=== PATIENT | male | born 1950 | race Caucasian/White ===

== ENCOUNTER 2016-12-24 14:37 | Emergency (ER) | payer MEDICAID ==
[~2016-12-24] VITALS: Ht 170.2 cm; Wt 77.1 kg
[2016-12-24 15:11] VITALS: BP 94/51
[2016-12-24] MEDS ORDERED: IV SET PRIMARY PUMP SET 1 EA INFUS.SET MC ONE (15:19)
[2016-12-24] MEDS ORDERED: IV NS 0.9% 500 ML IV ONE (15:19)
[2016-12-24] MEDS ORDERED: IV NS 0.9% 2,000 ML ONE (15:19)
[2016-12-24] MEDS ORDERED: IV NS 0.9% 1,000 ML BAG IV ONE (15:30)
[2016-12-24 15:37] LABS: BASOPHILS # (AUTO) 0.1 /CMM (0.0-0.2); BASOPHILS % (AUTO) 0.7 % (0.0-2.0); DIFF TOTAL % 100 %; EOSINOPHILS # (AUTO) 0.5 /CMM (0.0-0.7); EOSINOPHILS % (AUTO) 4.3 % (0.0-6.0); HEMATOCRIT 34 % (39-51); LYMPHOCYTES # (AUTO) 2.3 /CMM (0.8-4.8); LYMPHOCYTES % (AUTO) 21.5 % (20.0-44.0); MEAN CORPUSCULAR HEMOGLOBIN 30 PG (26.0-33.0); MEAN CORPUSCULAR HGB CONC 33 g/dl (31.0-36.0); MEAN CORPUSCULAR VOLUME 91 fL (80-96); MONOCYTES # (AUTO) 0.8 /CMM (0.1-1.30); MONOCYTES % (AUTO) 7.4 % (2.0-12.0); NEUTROPHILS # (AUTO) 6.8 /CMM (1.8-8.9); NEUTROPHILS % (AUTO) 66.1 % (43.0-81.0); PLATELET COUNT (AUTO) 156 /CMM (150-450); RED BLOOD CELL COUNT(AUTO) 3.69 MIL/uL (4.5-6.0); WHITE BLOOD COUNT (AUTO) 10.5 K/uL (4.3-11.0)
[2016-12-24 15:46] LABS: ADD UA MICROSCOPIC YES; KETONES,URINE Negative (NEGATIVE); LEUKOCYTE ESTERASE ,URINE Moderate (NEGATIVE)
[2016-12-24 15:47] LABS: ADD URINE CULTURE YES
[2016-12-24 15:49] LABS: ANION GAP 8 (5-14); CARBON DIOXIDE 29 mmol/L (21-32); CHLORIDE 106 mmol/L (98-107); GFR 75 mL/min (>60); GLUCOSE 106 mg/dL (74-106); POTASSIUM 3.9 mmol/L (3.5-5.1); SODIUM SERUM 139 mmol/L (136-145); UREA NITROGEN, BLOOD 23 mg/dL (7-18)
[2016-12-24 15:56] LABS: TROPONIN I < 0.017 ng/mL (0.00-0.056)
[2016-12-24 16:00] LABS: ALANINE AMINOTRANSFERASE 18 U/L (12-78); ALBUMIN 3.1 g/dL (3.4-5.0); ASPARTATE AMINOTRANSFERASE 20 U/L (15-37); BILIRUBIN,DIRECT 0.1 mg/dL (0.0-0.2); BILIRUBIN,TOTAL 0.6 mg/dL (0.2-1.0); INDIRECT BILIRUBIN 0.5 mg/dL (0.0-1.1); TOTAL PROTEIN, SERUM 7.8 g/dL (6.4-8.2)
[2016-12-24 16:05] LABS: ABG BASE EXCESS -3.6 mmol/L; ABG HCO3 20.7 mmol/L; ABG PCO2 34.5 mmHg (35.0-45.0); ABG PH 7.396 (7.350-7.450); ABG PO2 111.9 mmHg (75.0-100.0); ABG TOTAL HEMOGLOBIN 10.3 G/dL (13.5-18.0); ALLEN TEST Pass; AaDO2 61.5 mmHg; O2Hb 96.3 % (94.0-97.0)
[2016-12-24 16:12] LABS: LACTIC ACID 0.9 mmol/L (0.4-2.0)
[2016-12-24 16:21] LABS: INR 1.13 (0.87-1.13); PROTHROMBIN TIME 11.9 SECS (9.5-12.7)
[2016-12-24] MEDS ORDERED: IV SET PRIMARY 1 EA INFUS.SET MC ONE (16:27)
[2016-12-24] MEDS ORDERED: CEFTRIAXONE 1GM BAG (ER ONLY) 50 ML IV ONE (16:27)
[2016-12-24] MEDS ORDERED: CEFTRIAXONE 1GM BAG (ER ONLY) 1 GM/50 ML PIGGYBACK IV ONE (16:30)
[2016-12-24] MEDS ORDERED: ACID1TAB12 GT (16:40)
[2016-12-24] MEDS ORDERED: METO5SOL2 GT (16:40)
[2016-12-24] MEDS ORDERED: TRAM50TA92 GT (16:40)
[2016-12-24] MEDS ORDERED: BACL20TA GT (16:40)
[2016-12-24] MEDS ORDERED: INSU100V7 SQ (16:40)
[2016-12-24] MEDS ORDERED: ASCO500S2 GT (16:40)
[2016-12-24] MEDS ORDERED: CLON0.1T GT (16:40)
[2016-12-24] MEDS ORDERED: BLOO-668 IN (16:40)
[2016-12-24] MEDS ORDERED: MIDO5TAB GT (16:40)
[2016-12-24] MEDS ORDERED: CLON0.5T GT (16:40)
[2016-12-24] MEDS ORDERED: LORA1TAB GT (16:40)
[2016-12-24] MEDS ORDERED: HEPA10009 SQ (16:40)
[2016-12-24] MEDS ORDERED: DOCU50LI GT (16:40)
[2016-12-24] MEDS ORDERED: POTA20LI4 GT (16:40)
[2016-12-24] MEDS ORDERED: ZINC220C8 GT (16:40)
[2016-12-24] MEDS ORDERED: NUT.237L30 GT (16:40)
[2016-12-24] MEDS ORDERED: ACET160S3 GT (16:40)
[2016-12-24] MEDS ORDERED: INSU100V11 SQ (16:40)
[2016-12-24] MEDS ORDERED: MULT-24 GT (16:40)
[2016-12-24] MEDS ORDERED: OMEP40CA37 GT (16:40)
[2016-12-24 17:14] VITALS: BP 99/54
[2016-12-24 20:00] VITALS: BP 94/54
[2016-12-24 21:52] VITALS: BP 131/68
== END 2016-12-24 22:53 | disposition home or self-care (01) ==
LOC: ER 14:42
DX: D72.829 Elevated white blood cell count, unspecified (principal); N39.0 Urinary tract infection, site not specified; I10 Essential (primary) hypertension; E11.9 Type 2 diabetes mellitus without complications
CPT/HCPCS: 36415; 36600; 71010-TC; 80048-TC; 80076-TC; 81000-TC; 83605-TC; 83880; 84484-TC; 85025-TC; 85730-TC; 87040-TC; 87070-TC; 87086-TC; 87186-TC; 87400; A4606; J0696; J7030; J7040; Z7610

== ENCOUNTER 2019-05-03 23:52 | Inpatient (IN) | payer MEDICAID ==
[~2019-05-03] VITALS: Ht 167.6 cm; Wt 71.7 kg
[~2019-05-03 23:52] MED LIST: ACET650S26 GT; ACID1TAB12 GT; ASCO500S2 GT; BACL20TA GT; BLOO-668 IN; CLON0.1T GT; CLON0.5T GT; DOCU50LI GT; HEPA10009 SQ; INSU100V11 SQ; INSU100V7 SQ; LORA1TAB GT; METO5SOL2 GT; MIDO5TAB GT; MULT-24 GT; NUT.237L30 GT; OMEP40CA37 GT; POTA20LI5 GT; TRAM50TA GT; ZINC220C8 GT
--- NOTE | 2019-05-04 00:05 | NUR ---
KODI PLATT FROM [facility]. ALERT AND AWAKE. VENT DEPENDENT W/O NOTED ANY DISTRESS. BROUGHT IN FOR GT SITE BLEEDING X 2 DAYS. NOTED DARK RED BLOOD ON GT DRESSING, NO ACTIVE BLEEDING AT THIS TIME. ICE PACK ON GT SITE UPON ARRIVAL. TO ER BED 8. AWAITING MD FOR EVAL.
--- NOTE | 2019-05-04 00:20 | NUR ---
GT DRESSING CHANGED MIN BLOOD NOTED ON DRESSING NO NOTE ACTIVE BLEEDING. NOTED LEONELA STOMA MASERATED SKIN 2ND TO MOISTURE ASSOCIATED SKIN BREAKDOWN. AWARE.
[2019-05-04] MEDS ORDERED: PANTOPRAZOLE 80 MG in IV NS 0.9% 100 ML IV ONE (00:30)
[2019-05-04] MEDS ORDERED: PANTOPRAZOLE 80 MG in IV NS 0.9% 500 ML IV ONE (00:30)
[2019-05-04 00:47] LABS: BASOPHILS % (AUTO) 0.4 % (0.0-2.0); HEMATOCRIT 37 % (39-51); HEMOGLOBIN 12.2 g/dL (13.5-17.5); LYMPHOCYTES % (AUTO) 33.2 % (20.0-44.0); MEAN CORPUSCULAR HGB CONC 33 g/dl (31.0-36.0); MEAN CORPUSCULAR VOLUME 93 fL (80-96); MONOCYTES # (AUTO) 0.7 /CMM (0.1-1.30); MONOCYTES % (AUTO) 8.4 % (2.0-12.0); NEUTROPHILS # (AUTO) 4.8 /CMM (1.8-8.9); PLATELET COUNT (AUTO) 271 /CMM (150-450); RED BLOOD CELL COUNT(AUTO) 4.01 MIL/uL (4.5-6.0); WHITE BLOOD COUNT (AUTO) 8.9 K/uL (4.3-11.0)
[2019-05-04] MEDS ORDERED: PANTOPRAZOLE 40 MG VIAL ONE (00:49)
[2019-05-04 00:59] LABS: CALCIUM, SERUM 8.9 mg/dL (8.5-10.1); CREATININE 0.8 mg/dL (0.6-1.3); POTASSIUM 3.2 mmol/L (3.5-5.1)
[2019-05-04 01:05] LABS: ALBUMIN 3.1 g/dL (3.4-5.0); BILIRUBIN,DIRECT 0.2 mg/dL (0.0-0.2); BILIRUBIN,TOTAL 0.7 mg/dL (0.2-1.0); TOTAL PROTEIN, SERUM 8.1 g/dL (6.4-8.2)
--- NOTE | 2019-05-04 02:32 | NUR ---
REPORT GIVEN TO FARHANA CUMMINGS FOR KEVIN. PT GOING TO 114-2
[2019-05-04 03:19] VITALS: BP 137/56
--- NOTE | 2019-05-04 03:30 | NUR ---
PAGED AND CLARIFIED JANE COVINGTON NP. ORDER TUBE FEEDING DIET PER JANE Robert PUT PT NPO DIET OF NOW READ BACK AND VERIFIED ORDERS NOTED AND CARRIED OUT
[2019-05-04] MEDS ORDERED: IV D5/0.45 NACL 1,000 ML IV PRN (03:33)
[2019-05-04] MEDS ORDERED: METO25TA6 GT (03:53)
[2019-05-04] MEDS ORDERED: BACL10TA GT (03:53)
[2019-05-04] MEDS ORDERED: HYDR-4384 GT (03:53)
[2019-05-04] MEDS ORDERED: MAGNESIUM HYDROXIDE 30 ML UDC PO PRN (04:00)
[2019-05-04] MEDS ORDERED: PANTOPRAZOLE 80 MG in IV NS 0.9% 500 ML IV PRN (04:00)
[2019-05-04] MEDS ORDERED: MAG HYDROX/AL HYDROX/SIMETH 30 ML UDC PO PRN (04:00)
[2019-05-04] MEDS ORDERED: ACETAMINOPHEN 325 MG TABLET PO PRN (04:00)
[2019-05-04] MEDS ORDERED: ONDANSETRON HCL/PF 4 MG/2 ML VIAL IVP PRN (04:00)
[2019-05-04] MEDS: POTASSIUM CL. PREMIX PERIPHER. 50 ML IV SCH ×7 (04:17→14:26)
[2019-05-04] MEDS ORDERED: HYDROCODONE/APAP 5/325MG 1 EACH TABLET GT PRN (04:30)
[2019-05-04] MEDS ORDERED: DEXTROSE 50%-WATER 50 ML DISP.SYRIN IV PRN ×2 (04:30→17:00)
[2019-05-04] MEDS ORDERED: ACETAMINOPHEN 650 MG/20.3 ML UDC GT PRN (04:30)
[2019-05-04] MEDS ORDERED: LORAZEPAM 1 MG TABLET GT PRN (04:30)
[2019-05-04] MEDS ORDERED: GLUCERNA 1.2 1,000 ML BOTTLE GT SCH (04:30)
[2019-05-04] MEDS ORDERED: CLONIDINE HCL 0.1 MG TABLET GT PRN (04:30)
[2019-05-04] MEDS: BACLOFEN (10 MG) 10 MG TABLET GT SCH ×3 (04:58→20:54)
[2019-05-04] MEDS: MIDODRINE HCL (5MG) 5 MG TABLET GT SCH ×3 (04:58→20:54)
[2019-05-04] MEDS: clonazePAM 0.5 MG TABLET GT SCH ×3 (04:58→20:53)
--- NOTE | 2019-05-04 05:14 | NUR ---
Admitted pt from E.R services 0305 via gurney. pt in no apparent distress, admit to tele unit with SR 74 hr in the tele monitor. Atraumatic, respirations even and unlabored. Vent dependent tolerating settings as ordered. Shiley 6 XLT. G-tube site appears mildly excoriated. No active bleeding. head to toe assessment is done. kept clean and dry and comfortable. safety measures at all times. will cont to [facility].
[2019-05-04] MEDS: METOCLOPRAMIDE HCL 10 MG/10 ML UDC GT SCH ×3 (05:27→17:28)
[2019-05-04] MEDS: BLOOD SUGAR DIAGNOSTIC 1 EACH STRIP IN SCH ×4 (05:48→17:31)
[2019-05-04] MEDS: INSULIN REGULAR, HUMAN 100 UNIT/ML 3 ML VIAL SQ PRN ×2 (05:49→12:47)
--- NOTE | 2019-05-04 06:08 | NUR ---
ASSEMBLER DRY CELL AND BATTERY OPENS EYES TO NAME RESPONSIVE TO TACTILE STIMULI, TOLERATING VENTILATOR SETTINGS ORDERED. SP02 100% ON CARDIAC MONITORING SR 78 HR IN THE TELE MONITOR. APPEARS NOT IN DISTRESS, RESPIRATION EVEN AND UNLABORED. KEPT CLEAN AND DRY AND COMFORTABLE. NEEDS ATTENDED AND ANTICIPATED, NURSING CARE RENDERED, OFFLOAD HEELS AND ELBOWS. REPOSITIONED EVERY 2 HOURS. SAFETY MEASURES AT ALL TIMES. ENDORSE TO THE NEXT SHIFT.
--- NOTE | 2019-05-04 06:53 | NUR ---
UNABLE TO GET URINE. STRAIGHT CATH WAS DONE PER ORDER VIA STERILE TECHNIQUE NO OUTPUT PT ALREADY VOIDED IN HIS DIAPER ENDORSE NEXT SHFT TO OBTAIN URINE.
--- NOTE | 2019-05-04 07:30 | NUR ---
RN OPENING NOTES PATIENT IN BED RESTING COMFORTABLY. ABLE TO RESPOND TO TACTILE STIMULI. NO ACUTE DISTRESS AT THIS TIME OR FACIAL GRIMICING. RESPIRATION EVEN AND UNLABORED. PATIENT ABLE TO TOLERATE CURRENT VENT SETTINGS WELL. SKIN IS DRY WARM TO TOUCH. HOB ELEVATED AT ALL TIMES. IV ACCESS ON RIGHT FOOT INTACT AND PATENT. FLUSHING WELL. GT SITE NOTED WITH LEAKAGE. BED LOCKED AND IN LOWEST POSITION. SAFETY MAINTAINED. WILL CONTINUE TO MONITOR.
[2019-05-04 08:00] VITALS: BP 134/61
[2019-05-04] MEDS: ACIDOPHILUS/BULGARICUS 1 EACH TAB.CHEW GT SCH ×3 (09:00→16:55)
[2019-05-04] MEDS: ASCORBIC ACID 500 MG TABLET GT SCH ×2 (09:00→16:55)
[2019-05-04] MEDS ORDERED: POTASSIUM CHLORIDE 20 MEQ POWDER PACKET GT SCH (09:00)
[2019-05-04] MEDS: ZINC SULFATE 220 MG CAPSULE GT SCH (09:00)
[2019-05-04] MEDS: METOPROLOL TARTRATE 25 MG TABLET GT SCH ×2 (09:00→16:55)
[2019-05-04] MEDS: TRAMADOL HCL 50 MG TABLET GT SCH (09:00)
[2019-05-04] MEDS ORDERED: PANTOPRAZOLE 40 MG/PACK PACK GT SCH (09:00)
[2019-05-04] MEDS ORDERED: DOCUSATE SODIUM 100 MG CAPSULE PO SCH (09:00)
[2019-05-04] MEDS: MULTIVITAMINS,THERAGRAN 1 UDTAB TABLET GT SCH (09:00)
[2019-05-04] MEDS: DOCUSATE SODIUM LIQ 100 MG/10 ML UDC GT SCH (09:00)
[2019-05-04 10:00] VITALS: BP 114/38
[2019-05-04] MEDS: HEPARIN SODIUM, PORCINE 5000 UNITS/1 ML VIAL SQ SCH ×2 (10:22→22:50)
--- NOTE | 2019-05-04 11:46 | NUR ---
WOUND CARE CONSULT: PT PRESENTS WITH CONTRACTURES, SACRAL SCARRING, RASH TO GROIN FOLDS AND PERINEAL AREAS AND G TUBE SITE REDNESS WITH DRAINAGE, PRESENT ON ADMISSION. G TUBE IS CLAMPED AT THIS TIME. DEFER TO MD FOR G TUBE ISSUE. SKIN TO BE KEPT CLEAN AND DRY. RECOMMENDATIONS MADE FOR SKIN PROTECTION. DISCUSSED WITH NURSING STAFF. WILL SEE PRN. PT ON SELVIN ISOFLEX LOW AIRLOSS BED. MD IN AGREEMENT WITH PLAN OF CARE. CURRENT EMERITA SCORE IS 9. Addendum: 05/04/19 at 1148 by HERNANDEZ BASILIO WNDNU Amended: Links added.
[2019-05-04 12:00] VITALS: BP 114/38
--- NOTE | 2019-05-04 12:30 | NUR ---
RN NOTES MEDICATION INSULIN WAS NOT GIVEN DUE TO BLOOD SUGAR OR 111. REMAINS IN STABLE CONDITION. WILL CONTINUE TO MONITOR.
[2019-05-04] MEDS: CEFTRIAXONE 1 G in IV D5W 50 ML IV SCH (12:36)
[2019-05-04] MEDS: AZITHROMYCIN 500 MG in IV D5W 250 ML IV SCH (13:15)
[2019-05-04 14:42] LABS: FERRITIN 436 ng/mL (8-388)
[2019-05-04 15:08] LABS: IRON, SERUM 62 ug/dl (50-175); TOTAL IRON BINDING CAPACITY 183 ug/dl (250-450)
[2019-05-04 16:00] VITALS: BP 135/71
[2019-05-04] MEDS: SUCRALFATE 1 G/10 ML UDC GT SCH ×2 (16:56→22:00)
[2019-05-04] MEDS ORDERED: TPN/PPN PER PHARMACY XX PRN (17:00)
[2019-05-04] MEDS ORDERED: Sodium Chloride 154 MEQ in IV 10% DEXTROSE 1,000 ML IV PRN (17:00)
[2019-05-04] MEDS ORDERED: IV 10% DEXTROSE 1,000 ML IV PRN (17:00)
[2019-05-04] MEDS: CLOTRIMAZOLE 1% 15 GM TUBE TP SCH (17:31)
--- NOTE | 2019-05-04 19:00 | NUR ---
RN CLOSING NOTES PATIENT IN BED RESTING COMFORTABLY. ABLE TO RESPOND TO TACTILE STIMULI. NO PAIN OR ACUTE DISTRESS AT THIS TIME. RESPIRATION EVEN AND UNLABORED. TRACH INTACT. PATIENT ABLE TO TOLERATE VENT SETTINGS WELL. HOB ELEVATED AT ALL TIMES. SKIN IS DRY WARM TO TOUCH. IV ACCESS ON THE RIGHT FOOT AND LEFT HAND. INTACT AND PATENT. FLUSHING WELL. GT IN PLACE. HELD ALL MEDICATIONS VIA GT PER GAY. PATIENT WAS ALSO SEEN BY CHENG RODARTE WITH ORDERS TO PUT NG TUBE FOR INTERMITTENT LOW SUCTION AND TO DO WOUND CULTURE. WOUND CULTURE IS READY FOR SIGNAL PROCESSING ENGINEER IN THE SPECIMEN FRIDGE. ALL NEEDS ANTICIPATED. KEPT CLEAN AND DRY. CALL LIGHT WITHIN REACHED. SAFETY MEASURES MAINTAINED. WILL CONTINUE TO MONITOR. ENDORSED TO PM NURSE FOR KEVIN.
--- NOTE | 2019-05-04 19:30 | NUR ---
RN OPENING NOTES PATIENT IN BED RESTING COMFORTABLY. ABLE TO RESPOND TO TACTILE STIMULI. NO ACUTE DISTRESS AT THIS TIME OR FACIAL GRIMICING. RESPIRATION EVEN AND UNLABORED. PATIENT ABLE TO TOLERATE CURRENT VENT SETTINGS WELL. SKIN IS DRY WARM TO TOUCH. HOB ELEVATED AT ALL TIMES. IV ACCESS ON RIGHT FOOT INTACT AND PATENT. FLUSHING WELL. NO G TUBE PRESENT. PT NPO CURRENTLY. BED LOCKED AND IN LOWEST POSITION. SAFETY MAINTAINED. WILL CONTINUE TO MONITOR.
[2019-05-04 20:00] VITALS: BP 119/56
[2019-05-04] MEDS: INSULIN GLARGINE, 100 UNIT/ML CARTRIDGE SQ SCH (22:00)
[2019-05-04] MEDS: NEXIUM 40 MG VIAL IV SCH (22:49)
--- NOTE | 2019-05-04 22:56 | NUR ---
insulin lantus 5 units not given due to pt npo. blood sugar was 110
[2019-05-05] VITALS: BP 119/56
[2019-05-05] MEDS: BACLOFEN (10 MG) 10 MG TABLET GT SCH ×3 (00:41→21:00)
[2019-05-05] MEDS: MIDODRINE HCL (5MG) 5 MG TABLET GT SCH ×3 (00:42→21:00)
[2019-05-05] MEDS: BLOOD SUGAR DIAGNOSTIC 1 EACH STRIP IN SCH ×6 (00:42→18:01)
[2019-05-05 04:00] VITALS: BP 119/56
[2019-05-05] MEDS: METOCLOPRAMIDE HCL 10 MG/10 ML UDC GT SCH ×4 (06:00→18:00)
[2019-05-05 06:34] LABS: APPEARANCE,URINE TURBID (CLEAR); BILIRUBIN,URINE NEGATIVE (NEGATIVE); BLOOD, URINE 2+ Ery/uL (NEGATIVE); COLOR,URINE YELLOW (YELLOW); KETONES,URINE NEGATIVE (NEGATIVE); LEUKOCYTE ESTERASE ,URINE 3+ (NEGATIVE); NITRITE, URINE NEGATIVE (NEGATIVE); PROTEIN,URINE NEGATIVE (NEGATIVE); UGLUCOSE NEGATIVE (NEGATIVE); UROBILINOGEN,URINE 0.2 EU/dL (0.2)
[2019-05-05 06:50] LABS: BACTERIA,URINE Few /HPF (None Seen); WBC,URINE TOO NUMEROUS TO COUN /HPF (0-3); YEAST,URINE Moderate /HPF (None Seen)
--- NOTE | 2019-05-05 07:06 | NUR ---
RN CLOSING NOTES: WOUND CARE CONSULT: G TUBE SITE SLIGHTLY BLEEDING. CONSET NOT SIGNED FOR EGD. WILL ENDORSE TO AM NURSE.. ORDERED PRN BREATHING TREATMENTS FROM DOCTOR Q4. NEEDS FREQUENT SUCTIONING FROM MOUTH. NO ACUTE DISTRESS NOTED. PT PRESENTS WITH CONTRACTURES, SACRAL SCARRING, RASH TO GROIN FOLDS AND PERINEAL AREAS AND G TUBE SITE REDNESS WITH DRAINAGE, PRESENT ON ADMISSION. G TUBE SITE KEPT CLEAN AND DRY AND MONITERED FOR HEAVY BLEEDING. WILL ENDORSE TO AM SHIFT. Addendum: 05/04/19 at 1148 by HERNANDEZ BASILIO WNDNU
[2019-05-05] MEDS: SUCRALFATE 1 G/10 ML UDC GT SCH ×4 (07:30→21:51)
--- NOTE | 2019-05-05 07:30 | NUR ---
DRIVER/GUIDE OPENING NOTES RECEIVED PT ON VENT TO TRACH MD ORDERED. PT O2 SAT WNL. LABORED BREATHING NOTED. CALLED RT FOR PRN BREATHING TX. TRACH SUCTIONED/ LARGE AMOUNT OF SECRETION ORAL NOTED. NGT TO LOW INTERMITTENT SUCTION. IV FLUIDS D10 RUNNING VIA RIGHT FOOT. BED IN LOCKED/LOWEST POSITION CALL LIGHT IN REACH.
[2019-05-05 07:39] LABS: ALBUMIN 3.2 g/dL (3.4-5.0); BILIRUBIN,TOTAL 0.5 mg/dL (0.2-1.0); CREATININE 0.8 mg/dL (0.6-1.3); MAGNESIUM 1.8 mg/dL (1.8-2.4); PHOSPHORUS 2.3 mg/dL (2.5-4.9); POTASSIUM 3.4 mmol/L (3.5-5.1); TOTAL PROTEIN, SERUM 8.1 g/dL (6.4-8.2)
[2019-05-05 07:40] LABS: BASOPHILS # (AUTO) 0.1 /CMM (0.0-0.2); BASOPHILS % (AUTO) 1.4 % (0.0-2.0); EOSINOPHILS % (AUTO) 2.7 % (0.0-6.0); HEMATOCRIT 36 % (39-51); HEMOGLOBIN 11.8 g/dL (13.5-17.5); LYMPHOCYTES # (AUTO) 2.7 /CMM (0.8-4.8); LYMPHOCYTES % (AUTO) 27.1 % (20.0-44.0); MEAN CORPUSCULAR HGB CONC 33 g/dl (31.0-36.0); MEAN CORPUSCULAR VOLUME 91 fL (80-96); MONOCYTES # (AUTO) 0.6 /CMM (0.1-1.30); MONOCYTES % (AUTO) 6.2 % (2.0-12.0); NEUTROPHILS # (AUTO) 6.2 /CMM (1.8-8.9); NEUTROPHILS % (AUTO) 62.6 % (43.0-81.0); PLATELET COUNT (AUTO) 277 /CMM (150-450); RED BLOOD CELL COUNT(AUTO) 3.88 MIL/uL (4.5-6.0); WHITE BLOOD COUNT (AUTO) 9.9 K/uL (4.3-11.0)
[2019-05-05] MEDS: ALBUTEROL FS 2.5 MG/0.5 ML VIAL.NEB NEB SCH ×5 (07:49→23:43)
[2019-05-05 07:59] LABS: THYROID STIMULATING HORMONE 4.608 uIU/mL (0.358-3.74)
[2019-05-05 08:00] VITALS: BP 155/93
[2019-05-05 08:00] LABS: HEMOGLOBIN 13.2 g/dL (13.5-17.5)
[2019-05-05] MEDS: ZINC SULFATE 220 MG CAPSULE GT SCH (09:00)
[2019-05-05] MEDS: DOCUSATE SODIUM LIQ 100 MG/10 ML UDC GT SCH (09:00)
[2019-05-05] MEDS: TRAMADOL HCL 50 MG TABLET GT SCH (09:00)
[2019-05-05] MEDS: ACIDOPHILUS/BULGARICUS 1 EACH TAB.CHEW GT SCH ×3 (09:00→16:19)
[2019-05-05] MEDS: ASCORBIC ACID 500 MG TABLET GT SCH ×2 (09:00→16:19)
[2019-05-05] MEDS: METOPROLOL TARTRATE 25 MG TABLET GT SCH ×2 (09:00→16:19)
[2019-05-05] MEDS: MULTIVITAMINS,THERAGRAN 1 UDTAB TABLET GT SCH (09:00)
[2019-05-05] MEDS: NEXIUM 40 MG VIAL IV SCH ×2 (09:28→21:00)
[2019-05-05] MEDS: HEPARIN SODIUM, PORCINE 5000 UNITS/1 ML VIAL SQ SCH ×2 (09:30→21:00)
[2019-05-05] MEDS: CLOTRIMAZOLE 1% 15 GM TUBE TP SCH ×2 (09:32→18:01)
[2019-05-05] MEDS: CEFTRIAXONE 1 G in IV D5W 50 ML IV SCH (10:06)
[2019-05-05] MEDS: POTASSIUM PHOSPHATE MM 7.5 MMOL in IV D5W 100 ML IV SCH ×2 (11:30→13:45)
[2019-05-05 12:00] VITALS: BP 140/85
[2019-05-05] MEDS: AZITHROMYCIN 500 MG in IV D5W 250 ML IV SCH (12:38)
[2019-05-05] MEDS: clonazePAM 0.5 MG TABLET GT SCH ×3 (13:00→21:00)
[2019-05-05 16:00] VITALS: BP 130/76
[2019-05-05] MEDS ORDERED: TPN/PPN PER PHARMACY XX PRN (16:30)
--- NOTE | 2019-05-05 19:07 | NUR ---
ASSIGNMENT DESK ASSISTANT END OF SHIFT NOTES PT STABLE. BED IN LOCKED/LOWEST POSITION. CALL LIGHT IN REACH. WILL ENDORSE TO PM NURSE FOR KEVIN.
[2019-05-05 20:00] VITALS: BP 166/99
[2019-05-05] MEDS: IV 10% DEXTROSE 1,000 ML IV PRN (21:56)
[2019-05-05] MEDS: INSULIN GLARGINE, 100 UNIT/ML CARTRIDGE SQ SCH (22:00)
[2019-05-06] VITALS (7 sets, daily range): BP systolic 112–154; BP diastolic 60–70
[2019-05-06] MEDS: BLOOD SUGAR DIAGNOSTIC 1 EACH STRIP IN SCH ×5 (00:11→18:21)
[2019-05-06] MEDS: METOCLOPRAMIDE HCL 10 MG/10 ML UDC GT SCH ×3 (00:11→06:00)
[2019-05-06] MEDS: ALBUTEROL FS 2.5 MG/0.5 ML VIAL.NEB NEB SCH ×6 (03:43→23:24)
[2019-05-06] MEDS: BACLOFEN (10 MG) 10 MG TABLET GT SCH ×3 (05:00→21:00)
[2019-05-06] MEDS: clonazePAM 0.5 MG TABLET GT SCH ×3 (05:00→21:00)
[2019-05-06] MEDS: MIDODRINE HCL (5MG) 5 MG TABLET GT SCH ×3 (05:00→21:00)
[2019-05-06 06:48] LABS: BASOPHILS # (AUTO) 0.1 /CMM (0.0-0.2); BASOPHILS % (AUTO) 0.9 % (0.0-2.0); EOSINOPHILS % (AUTO) 0.6 % (0.0-6.0); HEMATOCRIT 37 % (39-51); HEMOGLOBIN 12.1 g/dL (13.5-17.5); LYMPHOCYTES # (AUTO) 2.4 /CMM (0.8-4.8); LYMPHOCYTES % (AUTO) 17.3 % (20.0-44.0); MEAN CORPUSCULAR HGB CONC 33 g/dl (31.0-36.0); MEAN CORPUSCULAR VOLUME 91 fL (80-96); MONOCYTES # (AUTO) 1.1 /CMM (0.1-1.30); MONOCYTES % (AUTO) 7.8 % (2.0-12.0); NEUTROPHILS # (AUTO) 10.3 /CMM (1.8-8.9); NEUTROPHILS % (AUTO) 73.4 % (43.0-81.0); PLATELET COUNT (AUTO) 305 /CMM (150-450); RED BLOOD CELL COUNT(AUTO) 4.04 MIL/uL (4.5-6.0)
[2019-05-06 07:10] LABS: CALCIUM, SERUM 8.7 mg/dL (8.5-10.1); CREATININE 0.8 mg/dL (0.6-1.3); MAGNESIUM 1.7 mg/dL (1.8-2.4); PHOSPHORUS 2.4 mg/dL (2.5-4.9); POTASSIUM 3.4 mmol/L (3.5-5.1)
--- NOTE | 2019-05-06 07:25 | NUR ---
RN NOTE: RECEIVED PATIENT IN BED, AWAKE, NONVERBAL AND VENT-TRACH DEPENDENT SATURATING 100%. RESPIRATION EVEN AND UNLABORED. INSPECTOR DIALS SHOWED SR HR= 93. GT WAS CLAMPED PER MD ORDER. NGT ON THE (R) NARE NOTED ON CONTINUOUS SUCTION AND A REDDISH COFFEE GROUND DRAINAGE WAS NOTED. (R) UA MIDLINE NOTED WITH 2 PORTS INFUSING D10% @ 75ML/HR. HOB ELEVATED. PER PM SHIFT NURSE, ORAL SUCTIONING WAS DONE TO THE PATIENT DUE TO SECRETIONS ON THE MOUTH. BED ALARMED AND LOCKED AT ALL TIMES. CALL LIGHT WITHIN REACH. NEEDS ANTICIPATED.
[2019-05-06] MEDS: SUCRALFATE 1 G/10 ML UDC GT SCH ×4 (07:30→21:38)
[2019-05-06] MEDS: MULTIVITAMINS,THERAGRAN 1 UDTAB TABLET GT SCH (08:03)
[2019-05-06] MEDS: ACIDOPHILUS/BULGARICUS 1 EACH TAB.CHEW GT SCH ×3 (08:03→16:01)
[2019-05-06] MEDS: TRAMADOL HCL 50 MG TABLET GT SCH (08:03)
[2019-05-06] MEDS: ASCORBIC ACID 500 MG TABLET GT SCH ×2 (08:03→16:02)
[2019-05-06] MEDS: DOCUSATE SODIUM LIQ 100 MG/10 ML UDC GT SCH (08:03)
[2019-05-06] MEDS: NEXIUM 40 MG VIAL IV SCH ×2 (08:04→21:43)
[2019-05-06] MEDS: ZINC SULFATE 220 MG CAPSULE GT SCH (08:04)
[2019-05-06] MEDS: METOPROLOL TARTRATE 25 MG TABLET GT SCH ×2 (09:00→16:01)
[2019-05-06] MEDS: HEPARIN SODIUM, PORCINE 5000 UNITS/1 ML VIAL SQ SCH ×2 (09:00→21:00)
[2019-05-06] MEDS: Z GUARD REMEDY 2 OZ OINT TP PRN (09:01)
[2019-05-06] MEDS: CLOTRIMAZOLE 1% 15 GM TUBE TP SCH ×2 (09:01→16:04)
[2019-05-06] MEDS: POTASSIUM CL. PREMIX PERIPHER. 50 ML IV SCH ×2 (10:27→11:31)
[2019-05-06] MEDS: CEFTRIAXONE 1 G in IV D5W 50 ML IV SCH (10:37)
[2019-05-06] MEDS ORDERED: Sodium Phosphate 15 MMOL in IV D5W 250 ML IV ONE (11:30)
[2019-05-06] MEDS: Magnesium 1GM/D5W 100ML PREMIX 100 ML IV SCH ×2 (11:35→12:55)
[2019-05-06] MEDS: INSULIN REGULAR, HUMAN 100 UNIT/ML 3 ML VIAL SQ PRN ×2 (12:27→18:24)
--- NOTE | 2019-05-06 12:29 | NUR ---
RN NOTE: INFORMED DR. RASHID IF IT'S POSSIBLE TO CHANGE THE ORDER FOR THE REGLAN TO IV FORM. AND AGREED WITH ORDER, NOTED AND CARRIED OUT.
[2019-05-06] MEDS: METOCLOPRAMIDE HCL 10 MG/2 ML VIAL IV SCH ×2 (14:30→19:11)
[2019-05-06] MEDS: AZITHROMYCIN 500 MG in IV D5W 250 ML IV SCH (14:30)
[2019-05-06] MEDS: FLUCONAZOLE IN NS,PREMIX 100 MG in PREMIX 1 EA IV SCH ×2 (14:37)
[2019-05-06] MEDS: IV 10% DEXTROSE 1,000 ML IV PRN (15:34)
--- NOTE | 2019-05-06 17:44 | NUR ---
RN NOTE: DURAN RODARTE NP CAME BY AND ORDERED NYSTATIN/TRIAMCINOLONE CREAM TO BE PUT ON THE PATIENT'S GT SITE BID. ORDER, NOTED AND CARRIED OUT.
--- NOTE | 2019-05-06 18:15 | NUR ---
RT END OF THE SHIFT REPORT; PT. 69 Y OLD MALE REC. 0700 AM TRACH'D SHIMERRY XLT # 6 PT. SEMI AWAKE AND ON VENT WITH NOTED SETTINGS, ALARMS ARE SET AND FUNCTIONAL, EQUAL CHEST RISE NOTED, NO DISTRESS, TX'S GIVEN INLINE NO ADVERSE REACTION, B/S BILATERALLY RHONCHI AND SUX'D FOR MOD. AMT OF WHITE SECRETIONS. PT, REMAIN STABLE, NO CHANGES VENT IN RED OUT LET, AMBU BAG AND EXTRA TRACH AT THE BEDSIDE. REPORT WILL BE PASS TO PM SHIFT. Addendum: 05/06/19 at 1819 by LUCIANO WAGNER RT Amended: Links added.
--- NOTE | 2019-05-06 18:37 | NUR ---
RN NOTE: CALLED AND SPOKE WITH YUNIOR NARAYANAN, FATHER AND VERIFIED WITH HIM THAT HE WAS CONSENTING FOR THE EGD PROCEDURE TOMORROW AND POSSIBLE GT PLACEMENT. VERIFIED WITH ANOTEHR NURSE Luis Eduardo PARRA RN FOR THE TELEPHONE CONSENT. PROCEDURE CONSENT WAS SIGNED BY BOTH NURSES AND FILED TO PATIENT'S CHART.
--- NOTE | 2019-05-06 19:04 | NUR ---
ONLINE ACTIVIST OPENING NOTES RECEIVED PATIENT IN BED HEAD OF BED ELEVATED FOR ASPIRATION PRECAUTIONS,AWAKE EYES OPEN NON VERBAL , RESPIRATIONS EVEN AND UNLABORED WITH EQUAL RISE AND FALL OF CHEST, ON MECHANICAL VENT ,PROPERLY WORKING PLUGGED INTO THE EMERGENCY PLUG, AMBU BAG AT BEDSIDE, CONTINUOUS PULSE OX IN PLACE, SP02 100%, PATIENT IS NPO STATUS, NGT TO RIGHT NARE IN PLACE ON CONTINUOUS SUCTION NOTED WITH RED SECRETIONS, SUCTIONED VIA TRACH NOTED THICK BLOOD TINGED SECRETIONS,ON RESEARCH & ANALYTICS MANAGER SR 77, RIGHT UPPER MIDLINE INTACT AND PATENT,IVF RUNNING ORDERED, RIGHT FOOT IV SITE #22 SL. HEELS OFFLOADED, ORIENTED TO STAFF AND CALL LIGHT AND KEPT WITHIN REACH, WILL CONTINUE TO MONITOR AND ADDRESS NEEDS.
--- NOTE | 2019-05-06 19:12 | NUR ---
RN NOTE: BEDSIDE REPORT WAS GIVEN TO PM SHIFT NURSE FOR CONTINUITY OF CARE. ENDORSED TO PM SHIFT NURSE TO COLLECT THE WOUND CULTURE FOR THE PATIENT. PATIENT HAD NO BOWEL MOVEMENT DURING THE DAY. WILL ENDORSE TO PM SHIFT NURSE TO COLLECT IF PATIENT WILL BE HAVING A BOWEL MOVEMENT DURING THE NIGHT.
[2019-05-06] MEDS: INSULIN GLARGINE, 100 UNIT/ML CARTRIDGE SQ SCH (21:39)
[2019-05-07] VITALS (8 sets, daily range): BP systolic 122–156; BP diastolic 58–88
[2019-05-07] MEDS: BLOOD SUGAR DIAGNOSTIC 1 EACH STRIP IN SCH ×4 (00:47→18:03)
[2019-05-07] MEDS: INSULIN REGULAR, HUMAN 100 UNIT/ML 3 ML VIAL SQ PRN ×2 (00:58→05:45)
[2019-05-07] MEDS: METOCLOPRAMIDE HCL 10 MG/2 ML VIAL IV SCH ×4 (02:06→18:10)
[2019-05-07] MEDS: ALBUTEROL FS 2.5 MG/0.5 ML VIAL.NEB NEB SCH ×6 (03:08→23:29)
--- NOTE | 2019-05-07 04:19 | NUR ---
RT NOTE TRACH TUBE IN PLACE, PATENT, AND SECURED. ALARMS ON AND AUDIBLE. VENT PLUGGED IN TO RED OUTLET. AMBU BAG AND BACK UP TRACH BY THE BEDSIDE. IN STABLE CONDITION AT THIS TIME. Addendum: 05/07/19 at 0421 by GWEN HEBERT RT Amended: Links added.
[2019-05-07] MEDS: clonazePAM 0.5 MG TABLET GT SCH ×3 (05:00→21:00)
[2019-05-07] MEDS: BACLOFEN (10 MG) 10 MG TABLET GT SCH ×3 (05:00→21:00)
[2019-05-07] MEDS: MIDODRINE HCL (5MG) 5 MG TABLET GT SCH ×3 (05:00→21:00)
[2019-05-07] MEDS: IV 10% DEXTROSE 1,000 ML IV PRN (06:27)
[2019-05-07 06:47] LABS: CALCIUM, SERUM 8.9 mg/dL (8.5-10.1); CREATININE 0.8 mg/dL (0.6-1.3); MAGNESIUM 2.1 mg/dL (1.8-2.4); PHOSPHORUS 2.8 mg/dL (2.5-4.9)
--- NOTE | 2019-05-07 07:02 | NUR ---
HIGHWAY CONSTRUCTION INSPECTOR CLOSING NOTES PATIENT IN BED HEAD OF BED ELEVATED FOR ASPIRATION PRECAUTIONS,AWAKE EYES OPEN NON VERBAL , RESPIRATIONS EVEN AND UNLABORED WITH EQUAL RISE AND FALL OF CHEST, ON MECHANICAL VENT ,PROPERLY WORKING PLUGGED INTO THE EMERGENCY PLUG, AMBU BAG AT BEDSIDE, CONTINUOUS PULSE OX IN PLACE, SP02 100%, PATIENT IS NPO STATUS, NGT TO RIGHT NARE IN PLACE ON CONTINUOUS SUCTION NOTED WITH MINIMAL PINK TINGED/CLEAR SECRETIONS, SUCTIONED VIA TRACH NOTED THICK BLOOD TINGED SECRETIONS,ON LASER SYSTEMS ENGINEER SR 68, RIGHT UPPER MIDLINE INTACT AND PATENT,IVF RUNNING ORDERED, RIGHT FOOT IV SITE #22 SL. HEELS OFFLOADED, WOUND CARE PROVIDED,CALL LIGHT AND KEPT WITHIN REACH, WILL CONTINUE TO MONITOR AND ADDRESS NEEDS AND ENDORSE TO NEXT SHIFT. UNABLE TO COLLECT STOOL NO BM WILL ENDORSE TO NEXT SHIFT, NO CHANGES THROUGHOUT SHIFT VS WNL, WOUND CARE PROVIDED TO GTUBE SITE. GREEN DRAINAGE NOTED. REPOSITIONED REMAINS COMFORTABLE.
--- NOTE | 2019-05-07 07:15 | NUR ---
HUMANITIES INSTRUCTOR OPENING NOTES RECEIVED REPORT FROM TEAROOM HOST RN. PATIENT IN BED HEAD OF BED ELEVATED FOR ASPIRATION PRECAUTIONS,AWAKE EYES OPEN NON VERBAL , RESPIRATIONS EVEN AND UNLABORED WITH EQUAL RISE AND FALL OF CHEST, ON MECHANICAL VENT ,PROPERLY WORKING PLUGGED INTO THE EMERGENCY PLUG, AMBU BAG AT BEDSIDE, CONTINUOUS PULSE OX IN PLACE, SP02 100%, PATIENT IS NPO STATUS, NGT TO RIGHT NARE IN PLACE ON CONTINUOUS SUCTION NOTED WITH MINIMAL PINK TINGED/CLEAR SECRETIONS, SUCTIONED VIA TRACH NOTED THICK BLOOD TINGED SECRETIONS,ON STATISTICAL CLERK SR 68, RIGHT UPPER MIDLINE INTACT AND PATENT,IVF RUNNING ORDERED, RIGHT FOOT IV SITE #22 SL. HEELS OFFLOADED, CALL LIGHT AND KEPT WITHIN REACH, WILL CONTINUE TO MONITOR.
[2019-05-07] MEDS: SUCRALFATE 1 G/10 ML UDC GT SCH ×4 (07:30→22:00)
[2019-05-07 08:35] LABS: BASOPHILS # (AUTO) 0.1 /CMM (0.0-0.2); BASOPHILS % (AUTO) 1.3 % (0.0-2.0); EOSINOPHILS % (AUTO) 2.9 % (0.0-6.0); HEMATOCRIT 36 % (39-51); HEMOGLOBIN 11.8 g/dL (13.5-17.5); LYMPHOCYTES # (AUTO) 2.4 /CMM (0.8-4.8); LYMPHOCYTES % (AUTO) 23.9 % (20.0-44.0); MEAN CORPUSCULAR HGB CONC 33 g/dl (31.0-36.0); MEAN CORPUSCULAR VOLUME 91 fL (80-96); MONOCYTES # (AUTO) 0.9 /CMM (0.1-1.30); MONOCYTES % (AUTO) 9.2 % (2.0-12.0); NEUTROPHILS # (AUTO) 6.4 /CMM (1.8-8.9); NEUTROPHILS % (AUTO) 62.7 % (43.0-81.0); PLATELET COUNT (AUTO) 251 /CMM (150-450); RED BLOOD CELL COUNT(AUTO) 3.92 MIL/uL (4.5-6.0); WHITE BLOOD COUNT (AUTO) 10.2 K/uL (4.3-11.0)
[2019-05-07] MEDS: MULTIVITAMINS,THERAGRAN 1 UDTAB TABLET GT SCH (09:00)
[2019-05-07] MEDS: HEPARIN SODIUM, PORCINE 5000 UNITS/1 ML VIAL SQ SCH ×2 (09:00→21:00)
[2019-05-07] MEDS: ACIDOPHILUS/BULGARICUS 1 EACH TAB.CHEW GT SCH ×3 (09:00→16:38)
[2019-05-07] MEDS: DOCUSATE SODIUM LIQ 100 MG/10 ML UDC GT SCH (09:00)
[2019-05-07] MEDS: ASCORBIC ACID 500 MG TABLET GT SCH ×2 (09:00→16:39)
[2019-05-07] MEDS: TRAMADOL HCL 50 MG TABLET GT SCH (09:00)
[2019-05-07] MEDS: METOPROLOL TARTRATE 25 MG TABLET GT SCH ×2 (09:00→16:38)
[2019-05-07] MEDS: ZINC SULFATE 220 MG CAPSULE GT SCH (09:00)
[2019-05-07] MEDS: NEXIUM 40 MG VIAL IV SCH (09:23)
[2019-05-07] MEDS: NYSTATIN/TRIAMCIN CREAM 15 GM TUBE TP SCH ×2 (09:23→16:40)
[2019-05-07] MEDS: CLOTRIMAZOLE 1% 15 GM TUBE TP SCH ×2 (09:24→16:40)
[2019-05-07] MEDS: POTASSIUM CL. PREMIX PERIPHER. 50 ML IV SCH ×6 (10:57→18:09)
--- NOTE | 2019-05-07 12:56 | NUR ---
PT NPO NO INSULIN TO BE GIVEN.
[2019-05-07] MEDS: CEFTRIAXONE 1 G in IV D5W 50 ML IV SCH (13:25)
[2019-05-07] MEDS: FLUCONAZOLE IN NS,PREMIX 100 MG in PREMIX 1 EA IV SCH ×2 (14:19)
[2019-05-07] MEDS: AZITHROMYCIN 500 MG in IV D5W 250 ML IV SCH (15:55)
[2019-05-07 18:47] LABS: OCCULT BLOOD STOOL NEGATIVE (NEGATIVE)
--- NOTE | 2019-05-07 19:11 | NUR ---
COLORED LEATHER SETTER CLOSING NOTES GAVE REPORT TO AMMUNITION ASSEMBLY I LABORER RN. PATIENT IN BED HEAD OF BED ELEVATED FOR ASPIRATION PRECAUTIONS,AWAKE EYES OPEN NON VERBAL , RESPIRATIONS EVEN AND UNLABORED WITH EQUAL RISE AND FALL OF CHEST, ON MECHANICAL VENT ,PROPERLY WORKING PLUGGED INTO THE EMERGENCY PLUG, AMBU BAG AT BEDSIDE, CONTINUOUS PULSE OX IN PLACE, SP02 93%, PATIENT IS NPO STATUS. ON INDIAN TRADER SR 68, RIGHT UPPER MIDLINE INTACT AND PATENT,IVF RUNNING ORDERED, RIGHT FOOT IV SITE #22 SL. HEELS OFFLOADED, CALL LIGHT AND KEPT WITHIN REACH, WILL ENDORSE CONTINUITY OF CARE TO AMMUNITION ASSEMBLY I LABORER RN.
--- NOTE | 2019-05-07 19:12 | NUR ---
TEACHER DRAMA OPENING NOTES RECEIVED BEDSIDE REPORT FROM AM SHIFT RN. PATIENT IN BED, HEAD OF BED ELEVATED FOR ASPIRATION PRECAUTIONS, AWAKE, EYES OPEN, NON VERBAL, RESPIRATIONS EVEN AND UNLABORED WITH EQUAL RISE AND FALL OF CHEST. ON MECHANICAL VENT, SETTINGS ORDERED, CONTINUOUS PULSE OX IN PLACE, SP02 91%. GTUBE IN PLACE, SITE C/D/I. PATIENT IS NPO STATUS PER AM RN REPORT. OLD GTUBE AREA LEAKING, DRESSING REINFORCED. ON CUFF SLITTER SR WITH HR 80S. RIGHT UPPER MIDLINE INTACT AND PATENT, IVF RUNNING ORDERED, SITE C/D/I. RIGHT FOOT IV SITE #22, PATENT AND INTACT, SL. HEELS OFFLOADED. WILL REPOSITION PER PROTOCOL. SAFETY MEASURES IN PLACE, CALL LIGHT WITHIN REACH. WILL CONTINUE TO MONITOR PT CLOSELY.
[2019-05-07] MEDS: FAMOTIDINE/PF INJ 20 MG/2 ML VIAL IV SCH (21:44)
--- NOTE | 2019-05-07 21:45 | NUR ---
CHILD CARE TEACHER NOTES CHENG GARZON AT BEDSIDE. ORDERED TO HOLD HEPARIN SQ AND PUT PATIENT ON GTUBE LOW INTERMITTENT SUCTIONING D/T PATIENT HAVING A LOT OF SECRETIONS. WILL ATTEND TO ORDERS.
[2019-05-07] MEDS: INSULIN GLARGINE, 100 UNIT/ML CARTRIDGE SQ SCH (22:00)
[2019-05-08] VITALS: BP 158/74
[2019-05-08] MEDS: BLOOD SUGAR DIAGNOSTIC 1 EACH STRIP IN SCH ×5 (00:21→23:15)
[2019-05-08] MEDS: INSULIN REGULAR, HUMAN 100 UNIT/ML 3 ML VIAL SQ PRN (00:29)
[2019-05-08] MEDS: IV 10% DEXTROSE 1,000 ML IV PRN ×2 (00:55→21:20)
[2019-05-08] MEDS: METOCLOPRAMIDE HCL 10 MG/2 ML VIAL IV SCH ×4 (00:55→18:02)
[2019-05-08] MEDS: ALBUTEROL FS 2.5 MG/0.5 ML VIAL.NEB NEB SCH ×6 (03:37→23:06)
[2019-05-08 04:00] VITALS: BP 120/48
[2019-05-08] MEDS: BACLOFEN (10 MG) 10 MG TABLET GT SCH ×3 (05:00→22:11)
[2019-05-08] MEDS: clonazePAM 0.5 MG TABLET GT SCH ×3 (05:00→22:10)
[2019-05-08] MEDS: MIDODRINE HCL (5MG) 5 MG TABLET GT SCH ×3 (05:00→22:10)
[2019-05-08 06:45] LABS: BASOPHILS # (AUTO) 0.1 /CMM (0.0-0.2); BASOPHILS % (AUTO) 1.2 % (0.0-2.0); EOSINOPHILS % (AUTO) 3.4 % (0.0-6.0); HEMATOCRIT 37 % (39-51); HEMOGLOBIN 12.2 g/dL (13.5-17.5); LYMPHOCYTES # (AUTO) 3.2 /CMM (0.8-4.8); LYMPHOCYTES % (AUTO) 26.2 % (20.0-44.0); MEAN CORPUSCULAR HGB CONC 33 g/dl (31.0-36.0); MEAN CORPUSCULAR VOLUME 92 fL (80-96); MONOCYTES # (AUTO) 1.2 /CMM (0.1-1.30); MONOCYTES % (AUTO) 9.5 % (2.0-12.0); NEUTROPHILS # (AUTO) 7.4 /CMM (1.8-8.9); NEUTROPHILS % (AUTO) 59.7 % (43.0-81.0); PLATELET COUNT (AUTO) 303 /CMM (150-450); RED BLOOD CELL COUNT(AUTO) 4.03 MIL/uL (4.5-6.0); WHITE BLOOD COUNT (AUTO) 12.4 K/uL (4.3-11.0)
[2019-05-08 06:47] LABS: CALCIUM, SERUM 8.9 mg/dL (8.5-10.1); CREATININE 0.8 mg/dL (0.6-1.3); MAGNESIUM 2.1 mg/dL (1.8-2.4); POTASSIUM 3.2 mmol/L (3.5-5.1)
[2019-05-08] MEDS: SUCRALFATE 1 G/10 ML UDC GT SCH ×4 (07:30→22:10)
--- NOTE | 2019-05-08 07:32 | NUR ---
LOOSE HAND PACKER CLOSING NOTES NO ACUTE CHANGES THROUGHOUT SHIFT. ALL MD ORDERS ATTENDED. ALL NEEDS ANTICIPATED AND MET. ENDORSED TO AM RN FOR KEVIN.
--- NOTE | 2019-05-08 07:50 | NUR ---
OXYGEN THERAPY TECHNICIAN OPENING NOTES REPORT RECEIVD FROM DOUGH RAISER RN. PATIENT IN BED HEAD OF BED ELEVATED FOR ASPIRATION PRECAUTIONS,AWAKE EYES OPEN NON VERBAL , RESPIRATIONS EVEN AND UNLABORED WITH EQUAL RISE AND FALL OF CHEST, ON MECHANICAL VENT ,PROPERLY WORKING PLUGGED INTO THE EMERGENCY PLUG, AMBU BAG AT BEDSIDE, CONTINUOUS PULSE OX IN PLACE, SP02 95%, PATIENT IS NPO STATUS. ON INSTALLATION AND REPAIR TECHNICIAN SR 68, RIGHT UPPER MIDLINE INTACT AND PATENT,IVF RUNNING ORDERED, RIGHT FOOT IV SITE #22 SL. HEELS OFFLOADED, CALL LIGHT AND KEPT WITHIN REACH, WILL CONTINUE TO MONITOR.
[2019-05-08 08:00] VITALS: BP 134/80
[2019-05-08] MEDS: HEPARIN SODIUM, PORCINE 5000 UNITS/1 ML VIAL SQ SCH ×2 (08:29→21:18)
--- NOTE | 2019-05-08 08:34 | NUR ---
OLD G-TUBE SITE STILL LEAKING HOLDING FEEDING
[2019-05-08] MEDS: ASCORBIC ACID 500 MG TABLET GT SCH ×2 (09:00→17:00)
[2019-05-08] MEDS: MULTIVITAMINS,THERAGRAN 1 UDTAB TABLET GT SCH (09:00)
[2019-05-08] MEDS: METOPROLOL TARTRATE 25 MG TABLET GT SCH ×2 (09:00→17:00)
[2019-05-08] MEDS: ACIDOPHILUS/BULGARICUS 1 EACH TAB.CHEW GT SCH ×3 (09:00→17:00)
[2019-05-08] MEDS: ZINC SULFATE 220 MG CAPSULE GT SCH (09:00)
[2019-05-08] MEDS: TRAMADOL HCL 50 MG TABLET GT SCH (09:00)
[2019-05-08] MEDS: DOCUSATE SODIUM LIQ 100 MG/10 ML UDC GT SCH (09:00)
[2019-05-08] MEDS: LORAZEPAM INJ 2 MG/ML VIAL IV PRN (09:20)
[2019-05-08] MEDS: FAMOTIDINE/PF INJ 20 MG/2 ML VIAL IV SCH ×2 (09:35→22:11)
[2019-05-08] MEDS: CLOTRIMAZOLE 1% 15 GM TUBE TP SCH ×2 (09:35→17:05)
[2019-05-08] MEDS: NYSTATIN/TRIAMCIN CREAM 15 GM TUBE TP SCH ×2 (09:36→17:06)
[2019-05-08] MEDS: CEFTRIAXONE 1 G in IV D5W 50 ML IV SCH (10:49)
[2019-05-08] MEDS: INSULIN GLARGINE, 100 UNIT/ML CARTRIDGE SQ SCH (11:00)
[2019-05-08 12:00] VITALS: BP 119/67
[2019-05-08] MEDS: AZITHROMYCIN 500 MG in IV D5W 250 ML IV SCH (12:01)
[2019-05-08] MEDS: Z GUARD REMEDY 2 OZ OINT TP PRN (12:36)
[2019-05-08] MEDS: POTASSIUM CL. PREMIX PERIPHER. 50 ML IV SCH ×4 (12:57→16:16)
[2019-05-08] MEDS: FLUCONAZOLE IN NS,PREMIX 100 MG in PREMIX 1 EA IV SCH ×2 (12:57)
[2019-05-08 16:00] VITALS: BP 107/55
--- NOTE | 2019-05-08 17:02 | NUR ---
SPOKE WITH DURAN ANAND. DURAN STATED TO GET SURGERY CONSULT TO CLOSE OLD SITE OF PEG TUBE
[2019-05-08] MEDS: MEROPENEM 500 MG in IV NS 0.9% 50 ML IV SCH (17:06)
--- NOTE | 2019-05-08 17:56 | NUR ---
RT END OF THE SHIFT REPORT; PT. 69 Y OLD MALE REC. 0700 AM TRACH'D SHIMERRY XLT # 6 PT. AWAKE, BUT NOT RESPONSIVE. AND ON VENT WITH NOTED SETTINGS, ALARMS ARE SET AND FUNCTIONAL, EQUAL CHEST RISE NOTED, NO DISTRESS, TX'S GIVEN INLINE NO ADVERSE REACTION, B/S BILATERALLY RHONCHI AND SUX'D FOR MOD. AMT OF WHITE [place] SECRETIONS. PT, REMAIN STABLE, NO CHANGES, HME CHANGED DYNAMITE CARTRIDGE CRIMPER DONE VENT IN RED OUT LET, AMBU BAG AND EXTRA TRACH AT THE BEDSIDE. REPORT WILL BE PASS TO PM SHIFT. Addendum: 05/08/19 at 1757 by LUCIANO WAGNER RT Amended: Links added.
--- NOTE | 2019-05-08 18:50 | NUR ---
BIOLOGICAL SCIENCE TECHNICIAN CLOSING NOTES PT IS RESTING IN BED WITH D10 RUNNING IN TETE MIDLINE. RT IS BEDSIDE CHANGING VENT TUBING. PT'S OLD G-TUBE SITE IS CURRENTLY STILL LEAKING WHILE NEW G-TUBE SITE HAVING MINIMAL DRAINAGE. PER CERTIFIED PROSTHETIST VICE PRESIDENT GI KEEP NPO FOR NOW. SURGERY CONSULT REQUESTED TO CLOSE OLD SITE. PT WAS ROTATED SITES. HEELS ARE OFFLOADED. EYES ARE CURRENTLY OPEN PT IS NONRESPONSIVE. BED IS LOCKED AND IN LOWEST POSITION. WILL ENDORSE CONTINUITY OF CARE TO GLASS INSTALLER RN.
--- NOTE | 2019-05-08 19:20 | NUR ---
TELE/RN NOTES PT RESTING IN BED, NO S/S OF ACUTE DISTRESS NOTED. RESPIRATION EVEN AND UNLABORED, NO SOB NOTED. NO S/S OF PAIN OR DISCOMFORT NOTED AT THIS TIME. TRACH INTACT, PATENT CONNECTED TO VENT WITH PRESCRIBED SETTINGS. TETE MIDLINE INTACT, PATENT, RUNNING WITH D10 ORDERED. PT'S OLD G-TUBE SITE IS CURRENTLY LEAKING WITH GREENISH FLUIDS AND NEW G TUBE SITE IS WITH INTERMITTENT SUCTIONING WITH MINIMAL DRAINAGE. PER MATZO FORMING MACHINE OPERATOR GI KEEP NPO FOR NOW, DO NOT USE THE NEW SITE, FOR MEDICATION, FEEDING OR FLUSHING. SURGERY CONSULT REQUESTED TO CLOSE OLD SITE. SAFETY MAINTAINED, BED IS LOCKED AND IN LOWEST POSITION. WILL CONTINUE TO MONITOR PATIENT PER PLAN OF CARE.
[2019-05-08 20:00] VITALS: BP 114/52
[2019-05-09] VITALS: BP 137/63
[2019-05-09] MEDS: METOCLOPRAMIDE HCL 10 MG/2 ML VIAL IV SCH ×4 (00:41→17:43)
[2019-05-09] MEDS: MEROPENEM 500 MG in IV NS 0.9% 50 ML IV SCH ×3 (00:41→16:45)
[2019-05-09] MEDS: ALBUTEROL FS 2.5 MG/0.5 ML VIAL.NEB NEB SCH ×6 (02:41→23:42)
[2019-05-09] MEDS: LORAZEPAM INJ 2 MG/ML VIAL IV PRN ×2 (02:48→20:24)
[2019-05-09 04:00] VITALS: BP 141/74
[2019-05-09] MEDS: clonazePAM 0.5 MG TABLET GT SCH ×3 (04:14→21:00)
[2019-05-09] MEDS: BACLOFEN (10 MG) 10 MG TABLET GT SCH ×3 (04:14→21:00)
[2019-05-09] MEDS: MIDODRINE HCL (5MG) 5 MG TABLET GT SCH ×3 (04:14→21:00)
--- NOTE | 2019-05-09 05:21 | NUR ---
RT NOTE: RECEIVED PT ON ORDERED AC VENT SETTINGS. NO RESPIRATORY DISTRESS NOTED. TRACH CHECKED SECURE AND PATENT. SXD AND LAVAGE PT Q2 HOURS AND NEEDED. TXS GIVEN ORDERED WITH NO ADVERSE REACTIONS NOTED. EMERGENCY EQUIPMENT @ BEDSIDE. ALARMS CHECKED ON AND AUDIBLE. Addendum: 05/09/19 at 0523 by ANDRADE LÓPEZ RT Amended: Links added.
[2019-05-09] MEDS: BLOOD SUGAR DIAGNOSTIC 1 EACH STRIP IN SCH ×4 (05:44→23:23)
--- NOTE | 2019-05-09 06:44 | NUR ---
TELE/RN NOTES PT IN NO ACUTE DISTRESS. RESPIRATION EVEN AND UNLABORED, NO SOB NOTED. NO S/S OF PAIN OR DISCOMFORT NOTED AT THIS TIME. TRACH INTACT, PATENT CONNECTED TO VENT WITH PRESCRIBED SETTINGS. TETE MIDLINE INTACT, PATENT, RUNNING WITH D10 ORDERED. PT'S OLD G-TUBE SITE IS STILL LEAKING WITH GREENISH FLUIDS AND NEW G TUBE SITE IS WITH INTERMITTENT SUCTIONING WITH MINIMAL DRAINAGE. MEDICATIONS HELD PER MD RASHID ORDER. ON TELE MONITORING WITH SR 87. SAFETY MAINTAINED, BED IS LOCKED AND IN LOWEST POSITION. WILL ENDORSE TO AM SHIFT NURSE FOR EKVIN
[2019-05-09 06:50] LABS: BASOPHILS # (AUTO) 0.2 /CMM (0.0-0.2); BASOPHILS % (AUTO) 2.2 % (0.0-2.0); EOSINOPHILS % (AUTO) 3.8 % (0.0-6.0); HEMATOCRIT 35 % (39-51); HEMOGLOBIN 11.4 g/dL (13.5-17.5); LYMPHOCYTES # (AUTO) 2.5 /CMM (0.8-4.8); LYMPHOCYTES % (AUTO) 28.1 % (20.0-44.0); MEAN CORPUSCULAR HGB CONC 33 g/dl (31.0-36.0); MEAN CORPUSCULAR VOLUME 92 fL (80-96); MONOCYTES # (AUTO) 0.8 /CMM (0.1-1.30); MONOCYTES % (AUTO) 9.2 % (2.0-12.0); NEUTROPHILS % (AUTO) 56.7 % (43.0-81.0); PLATELET COUNT (AUTO) 289 /CMM (150-450); WHITE BLOOD COUNT (AUTO) 8.8 K/uL (4.3-11.0)
[2019-05-09 07:05] LABS: CALCIUM, SERUM 8.7 mg/dL (8.5-10.1); CREATININE 0.8 mg/dL (0.6-1.3); MAGNESIUM 1.9 mg/dL (1.8-2.4); PHOSPHORUS 2.6 mg/dL (2.5-4.9); POTASSIUM 3.5 mmol/L (3.5-5.1)
[2019-05-09] MEDS: SUCRALFATE 1 G/10 ML UDC GT SCH ×4 (07:30→21:17)
[2019-05-09 08:00] VITALS: BP 116/61
[2019-05-09] MEDS: HEPARIN SODIUM, PORCINE 5000 UNITS/1 ML VIAL SQ SCH ×2 (09:00→20:26)
[2019-05-09] MEDS: ACIDOPHILUS/BULGARICUS 1 EACH TAB.CHEW GT SCH ×3 (09:00→16:42)
[2019-05-09] MEDS: ASCORBIC ACID 500 MG TABLET GT SCH ×2 (09:00→16:43)
[2019-05-09] MEDS: MULTIVITAMINS,THERAGRAN 1 UDTAB TABLET GT SCH (09:00)
[2019-05-09] MEDS: TRAMADOL HCL 50 MG TABLET GT SCH (09:00)
[2019-05-09] MEDS: METOPROLOL TARTRATE 25 MG TABLET GT SCH ×2 (09:00→16:43)
[2019-05-09] MEDS: DOCUSATE SODIUM LIQ 100 MG/10 ML UDC GT SCH (09:00)
[2019-05-09] MEDS: ZINC SULFATE 220 MG CAPSULE GT SCH (09:00)
--- NOTE | 2019-05-09 09:15 | NUR ---
DROP FORGER HELPER NOTES PER DR RASHID, PLACE PT ON CONTACT ISOLATION FOR ESBL OF WOUND.
[2019-05-09] MEDS: FAMOTIDINE/PF INJ 20 MG/2 ML VIAL IV SCH ×2 (09:24→20:24)
[2019-05-09] MEDS: CLOTRIMAZOLE 1% 15 GM TUBE TP SCH ×2 (09:26→16:49)
[2019-05-09] MEDS: NYSTATIN/TRIAMCIN CREAM 15 GM TUBE TP SCH ×2 (09:27→16:49)
[2019-05-09] MEDS: AZITHROMYCIN 500 MG in IV D5W 250 ML IV SCH (11:48)
[2019-05-09] MEDS: IV 10% DEXTROSE 1,000 ML IV PRN (11:49)
[2019-05-09 12:00] VITALS: BP 143/77
[2019-05-09] MEDS: FLUCONAZOLE IN NS,PREMIX 100 MG in PREMIX 1 EA IV SCH ×2 (13:24)
[2019-05-09 16:00] VITALS: BP 137/81
--- NOTE | 2019-05-09 18:33 | NUR ---
COMPUTED TOMOGRAPHY TECHNOLOGIST NOTES PER CHENG ROSE KEEP PRESSURE DRESSING WITH GAUZE ON OLD GT SITE. PUT MYCOLOG CREAM AROUND, OK TO PUT ABD PAD OVER. ON NEW GT SITE KEEP GT FLUSH AGAINST SKIN.
--- NOTE | 2019-05-09 18:50 | NUR ---
DIGITAL FORENSICS EXAMINER NOTES REPORT GIVEN TO PM NURSE FOR KEVIN. PT STABLE ON VENT.
--- NOTE | 2019-05-09 19:12 | NUR ---
TELE/RN NOTES PT RESTING IN BED, RESTING COMFORTABLY AT THIS TIME, NO S/S OF ACUTE DISTRESS NOTED. RESPIRATION EVEN AND UNLABORED, NO SOB NOTED. PATIENT AWAKE, NON-VERBAL. NO S/S OF PAIN OR DISCOMFORT NOTED AT THIS TIME. TRACH INTACT, PATENT CONNECTED TO VENT WITH PRESCRIBED SETTINGS. TETE MIDLINE INTACT, PATENT, RUNNING WITH D10 ORDERED. PT'S OLD G-TUBE SITE IS CURRENTLY LEAKING WITH GREENISH FLUIDS AND NEW G TUBE SITE IS WITH INTERMITTENT SUCTIONING WITH MINIMAL DRAINAGE. SAFETY MAINTAINED, BED IS LOCKED AND IN LOWEST POSITION. CALL LIGHT WITHIN REACH. WILL CONTINUE TO MONITOR PATIENT PER PLAN OF CARE.
[2019-05-09 20:00] VITALS: BP 165/83
--- NOTE | 2019-05-09 20:20 | NUR ---
RN/TELE NOTES PATIENT BLOOD PRESSURE NOTED 165/83 AT THIS TIME, CHECKED 2 TIMES. PATIENT MEDICATION VIA G TUBE ARE BEING HELD BECAUSE OLD G TUBE SITE IS LEAKING WITH GREENISH LIQUID AND NEW G TUBE SITE WITH INTERMITTENT SUCTION. PATIENT MORNING BLOOD PRESSURE MEDICATIONS WERE HELD. PATIENT NOTED IN NO ACUTE DISTRESS. PATIENT APPEARED ANXIOUS. WILL GIVE PRN ATIVAN IV ORDERED
--- NOTE | 2019-05-09 20:24 | NUR ---
PRN ATIVAN WAS GIVEN AT THIS TIME.
--- NOTE | 2019-05-09 20:54 | NUR ---
PRN IV ATIVAN WAS NOT EFFECTIVE, PATIENT BLOOD PRESSURE STILL NOTED 161/94.
[2019-05-09] MEDS: hydrALAZINE HCL IV 20 MG VIAL IV PRN (21:11)
--- NOTE | 2019-05-09 21:11 | NUR ---
PRN HYDRALAZINE WAS GIVEN AT THIS TIME. WILL CONTINUE TO MONITOR
--- NOTE | 2019-05-09 21:19 | NUR ---
RT NOTE PATIENT RECEIVED TRACHED ON MECHANICAL VENTILATION. PATIENT AWAKE. SHILEY [address] AMBU BAG @ BEDSIDE. VENT ALARMS ON AND AUDIBLE. TX GIVEN, NO ADVERSE REACTIONS NOTED. SX DONE, TRACH SECURED AND PATENT. PATIENT STABLE AT THIS TIME. WILL MONITOR T/O SHIFT. CONTINUOUS PULSE OX CONNECTED. Addendum: 05/09/19 at 2120 by CARLENE JAIME RT Amended: Links added.
--- NOTE | 2019-05-09 21:41 | NUR ---
PRN HYDRALAZINE WITH EFFECTIVENESS BLOOD PRESSURE DROP TO 154/73. WILL CONTINUE TO MONITOR
--- NOTE | 2019-05-09 21:49 | NUR ---
RN/TELE NOTES PATIENT BLOOD PRESSURE NOTED 165/83 AT THIS TIME, CHECKED 2 TIMES. PATIENT MEDICATION VIA G TUBE ARE BEING HELD BECAUSE OLD G TUBE SITE IS LEAKING WITH GREENISH LIQUID AND NEW G TUBE SITE WITH INTERMITTENT SUCTION. PATIENT MORNING BLOOD PRESSURE MEDICATIONS WERE HELD. PATIENT NOTED IN NO ACUTE DISTRESS. PATIENT APPEARED ANXIOUS. WILL GIVE PRN ATIVAN IV ORDERED. Addendum: 05/09/19 at 2155 by JUANJO CANDELARIA RN DISREGARD NOTES. WRONG TIME
[2019-05-09] MEDS: INSULIN GLARGINE, 100 UNIT/ML CARTRIDGE SQ SCH (23:08)
[2019-05-10] VITALS: BP 146/82
[2019-05-10] MEDS: LORAZEPAM INJ 2 MG/ML VIAL IV PRN ×3 (00:54→23:28)
[2019-05-10] MEDS: METOCLOPRAMIDE HCL 10 MG/2 ML VIAL IV SCH ×5 (00:58→23:41)
[2019-05-10] MEDS: MEROPENEM 500 MG in IV NS 0.9% 50 ML IV SCH ×3 (00:58→17:40)
[2019-05-10] MEDS: ALBUTEROL FS 2.5 MG/0.5 ML VIAL.NEB NEB SCH ×6 (03:49→23:31)
[2019-05-10 04:00] VITALS: BP 142/76
[2019-05-10] MEDS: BACLOFEN (10 MG) 10 MG TABLET GT SCH ×3 (04:33→20:16)
[2019-05-10] MEDS: clonazePAM 0.5 MG TABLET GT SCH ×3 (04:33→20:16)
[2019-05-10] MEDS: MIDODRINE HCL (5MG) 5 MG TABLET GT SCH ×3 (04:34→20:16)
[2019-05-10] MEDS: IV 10% DEXTROSE 1,000 ML IV PRN ×2 (04:38→19:57)
[2019-05-10] MEDS: BLOOD SUGAR DIAGNOSTIC 1 EACH STRIP IN SCH ×3 (05:50→18:14)
[2019-05-10] MEDS: INSULIN REGULAR, HUMAN 100 UNIT/ML 3 ML VIAL SQ PRN ×2 (05:52→13:02)
--- NOTE | 2019-05-10 06:36 | NUR ---
TELE/RN EXIT NOTES PT IN BED RESTING COMFORTABLY AT THIS TIME, NO S/S OF ACUTE DISTRESS NOTED. RESPIRATION EVEN AND UNLABORED, NO SOB NOTED. NO S/S OF PAIN OR DISCOMFORT NOTED AT THIS TIME. TRACH INTACT, PATENT CONNECTED TO VENT WITH PRESCRIBED SETTINGS. TETE MIDLINE INTACT, PATENT, RUNNING WITH D10% ORDERED. PT'S OLD G-TUBE SITE IS CURRENTLY LEAKING WITH GREENISH FLUIDS AND NEW G TUBE SITE IS WITH INTERMITTENT SUCTIONING WITH MINIMAL GREEN COLOR DRAINAGE. ON TELE MONITORING WITH SINUS TACHY AT 107. SAFETY MAINTAINED, BED IS LOCKED AND IN LOWEST POSITION. CALL LIGHT WITHIN REACH. ENDORSE TO AM SHIFT NURSE FOR KEVIN.
[2019-05-10 06:39] LABS: CALCIUM, SERUM 9.6 mg/dL (8.5-10.1); MAGNESIUM 1.9 mg/dL (1.8-2.4); PHOSPHORUS 2.4 mg/dL (2.5-4.9); POTASSIUM 3.7 mmol/L (3.5-5.1)
--- NOTE | 2019-05-10 07:27 | NUR ---
STOPPER MAKER OPENING NOTES PT RECEIVED IN BED OBTUNDED A/O X 1. NO PAIN, SOB OR ACUTE ACUTE DISTRESS NOTED. RESPIRATION EVEN AND UNLABORED, PATIENT AWAKE, NON-VERBAL. TRACH INTACT, PATENT CONNECTED TO VENT WITH PRESCRIBED SETTINGS. TETE MIDLINE INTACT AND PATENT, RUNNING WITH D10 ORDERED. PT'S OLD G-TUBE SITE IS CURRENTLY LEAKING WITH GREENISH FLUIDS AND NEW G TUBE SITE IS WITH INTERMITTENT SUCTIONING WITH MINIMAL DRAINAGE. SAFETY MAINTAINED, BED IS LOCKED AND IN LOWEST POSITION. CALL LIGHT WITHIN REACH. WILL CONTINUE TO MONITOR.
[2019-05-10] MEDS: SUCRALFATE 1 G/10 ML UDC GT SCH ×5 (07:30→22:00)
--- NOTE | 2019-05-10 07:57 | NUR ---
ESOL TEACHER NOTE 6987 MEDICATION HELD D/T G-TUBE MALFUNCTIONING. MD AWARE. POTENTIAL SURGERY PENDING.
[2019-05-10 08:00] VITALS: BP 135/83
[2019-05-10] MEDS: HEPARIN SODIUM, PORCINE 5000 UNITS/1 ML VIAL SQ SCH ×2 (08:36→21:10)
[2019-05-10] MEDS: FAMOTIDINE/PF INJ 20 MG/2 ML VIAL IV SCH ×2 (08:36→21:10)
[2019-05-10] MEDS: METOPROLOL TARTRATE 25 MG TABLET GT SCH ×2 (09:00→17:00)
[2019-05-10] MEDS: MULTIVITAMINS,THERAGRAN 1 UDTAB TABLET GT SCH (09:00)
[2019-05-10] MEDS: ACIDOPHILUS/BULGARICUS 1 EACH TAB.CHEW GT SCH ×3 (09:00→17:00)
[2019-05-10] MEDS: DOCUSATE SODIUM LIQ 100 MG/10 ML UDC GT SCH (09:00)
[2019-05-10] MEDS: ZINC SULFATE 220 MG CAPSULE GT SCH (09:00)
[2019-05-10] MEDS: ASCORBIC ACID 500 MG TABLET GT SCH ×2 (09:00→17:31)
[2019-05-10] MEDS: TRAMADOL HCL 50 MG TABLET GT SCH (09:00)
[2019-05-10] MEDS: ACETAMINOPHEN 650 MG/SUPP.RECT RC PRN (09:02)
[2019-05-10] MEDS: CLOTRIMAZOLE 1% 15 GM TUBE TP SCH ×2 (09:35→17:30)
[2019-05-10] MEDS: NYSTATIN/TRIAMCIN CREAM 15 GM TUBE TP SCH ×2 (09:35→17:30)
--- NOTE | 2019-05-10 10:08 | NUR ---
POULTRY PROCESSOR NOTE PATIENT TEMP 100.4. RECTAL TYLENOL GIVEN. WILL RECHECK TEMPERATURE.
[2019-05-10] MEDS ORDERED: SILVER NITRATE APPLICATOR 1 EA BOX TP STA (11:12)
[2019-05-10 12:00] VITALS: BP 130/68
[2019-05-10] MEDS: AZITHROMYCIN 500 MG in IV D5W 250 ML IV SCH (12:08)
[2019-05-10] MEDS: FLUCONAZOLE IN NS,PREMIX 100 MG in PREMIX 1 EA IV SCH ×2 (13:10)
[2019-05-10 16:00] VITALS: BP 152/74
--- NOTE | 2019-05-10 16:45 | NUR ---
SHEEP BONER NOTE WOUND CARE COMPLETED ORDERED.
[2019-05-10] MEDS: hydrALAZINE HCL IV 20 MG VIAL IV PRN (17:40)
--- NOTE | 2019-05-10 18:00 | NUR ---
CHIEF DEVELOPMENT OFFICER NOTE ALL G-TUBE MEDS HELD PER MD D/T G-TUBE MALFUNCTION.
--- NOTE | 2019-05-10 19:41 | NUR ---
ORACLE SPECIALIST NOTE PATIENT REPORT GIVEN BEDSIDE. PATIENT A/O X 1. NON VERBAL UNABLE TO MAKE NEEDS KNOWN. PATIENT ABLE TOLERATING PRESCRIBED VENT SETTINGS WELL. PATIENT TURNED AND REPOSITIONED FOR COMFORT ANS SAFETY. PATIENT, HAS NO FUNCTIONING GTUBE MD AWARE. NOT ABLE TO GIVE PATIENT GTUBE MEDS. MD TO EVALUATE PATIENT GTUBE AFTER PRESSURE DRESSING APPLIED. PATIENT IS SR ON THE MONITOR HR IN THE 80'S. SAFETY PRECAUTIONS IN PLACE SIDE RAILS UP X 2. . RN WILL CONTINUE TO MONITOR FOR CHANGES.
[2019-05-10 20:00] VITALS: BP 156/98
--- NOTE | 2019-05-10 20:17 | NUR ---
PAPER REWINDER OPERATOR CLOSING NOTES PT IN BED OBTUNDED A/O X 1. NO PAIN, SOB OR ACUTE ACUTE DISTRESS NOTED. RESPIRATION EVEN AND UNLABORED, PATIENT AWAKE, NON-VERBAL. TRACH INTACT, PATENT CONNECTED TO VENT WITH PRESCRIBED SETTINGS. TETE MIDLINE INTACT AND PATENT, RUNNING WITH D10 ORDERED. PT'S OLD G-TUBE SITE IS CURRENTLY LEAKING WITH GREENISH FLUIDS AND NEW G TUBE SITE IS WITH INTERMITTENT SUCTIONING WITH MINIMAL DRAINAGE. G-TUBE NOT BEING USED PER MD. SAFETY MAINTAINED, BED IS LOCKED AND IN LOWEST POSITION. CALL LIGHT WITHIN REACH. CARE ENDORSED TO HOUSEKEEPING AND LAUNDRY TEAM LEADER RN. .
[2019-05-10] MEDS: INSULIN GLARGINE, 100 UNIT/ML CARTRIDGE SQ SCH (22:55)
[2019-05-11] VITALS: BP 155/79
[2019-05-11] MEDS: BLOOD SUGAR DIAGNOSTIC 1 EACH STRIP IN SCH ×4 (00:14→17:53)
[2019-05-11] MEDS: MEROPENEM 500 MG in IV NS 0.9% 50 ML IV SCH ×3 (01:13→17:21)
[2019-05-11] MEDS: ALBUTEROL FS 2.5 MG/0.5 ML VIAL.NEB NEB SCH ×6 (03:04→22:59)
[2019-05-11 04:00] VITALS: BP 94/59
[2019-05-11] MEDS: clonazePAM 0.5 MG TABLET GT SCH ×3 (05:00→21:00)
[2019-05-11] MEDS: BACLOFEN (10 MG) 10 MG TABLET GT SCH ×3 (05:00→21:00)
[2019-05-11] MEDS: MIDODRINE HCL (5MG) 5 MG TABLET GT SCH ×3 (05:00→21:00)
[2019-05-11] MEDS: METOCLOPRAMIDE HCL 10 MG/2 ML VIAL IV SCH ×4 (06:15→17:47)
[2019-05-11 07:04] LABS: BASOPHILS # (AUTO) 0.2 /CMM (0.0-0.2); BASOPHILS % (AUTO) 2.1 % (0.0-2.0); EOSINOPHILS % (AUTO) 3.6 % (0.0-6.0); HEMATOCRIT 36 % (39-51); HEMOGLOBIN 11.8 g/dL (13.5-17.5); LYMPHOCYTES % (AUTO) 36.3 % (20.0-44.0); MEAN CORPUSCULAR HGB CONC 33 g/dl (31.0-36.0); MEAN CORPUSCULAR VOLUME 92 fL (80-96); MONOCYTES # (AUTO) 0.9 /CMM (0.1-1.30); MONOCYTES % (AUTO) 11.4 % (2.0-12.0); NEUTROPHILS # (AUTO) 3.8 /CMM (1.8-8.9); NEUTROPHILS % (AUTO) 46.6 % (43.0-81.0); PLATELET COUNT (AUTO) 309 /CMM (150-450); RED BLOOD CELL COUNT(AUTO) 3.95 MIL/uL (4.5-6.0); WHITE BLOOD COUNT (AUTO) 8.2 K/uL (4.3-11.0)
[2019-05-11 07:20] LABS: CALCIUM, SERUM 9.6 mg/dL (8.5-10.1); CREATININE 0.9 mg/dL (0.6-1.3); MAGNESIUM 1.9 mg/dL (1.8-2.4); PHOSPHORUS 2.9 mg/dL (2.5-4.9); POTASSIUM 3.1 mmol/L (3.5-5.1)
[2019-05-11] MEDS: SUCRALFATE 1 G/10 ML UDC GT SCH ×4 (07:30→21:43)
--- NOTE | 2019-05-11 07:36 | NUR ---
FORESTRY TECHNICAL OFFICER OPENING NOTES RECEIVED BEDSIDE REPORT PT IN BED OBTUNDED A/O X 1 NO SIGNS OR SYMPTOMS OF RESPIRATORY DISTRESS ON VENT TOLERATING SETTINGS NO SIGNS OF ACUTE PAIN NOTED TETE MIDLINE INTACT AND PATENT, RUNNING WITH D10 ORDERED.G-TUBE NOT BEING USED PER MD CONNECTED TO LOW INTERMITTENT SUCTION. OLD SITE COMPRESSION DRESSING D/T LEAKING HOB @ 25 DEGREES FOR SUTURE HEALING.SAFETY AND ASPIRATION PRECAUTIONS IN PLACE BED IS LOCKED AND IN LOWEST POSITION. CALL LIGHT WITHIN REACH. WILL CONT TO MONITOR ACCORDINGLY
[2019-05-11 08:00] VITALS: BP 126/77
[2019-05-11] MEDS: DOCUSATE SODIUM LIQ 100 MG/10 ML UDC GT SCH (09:00)
[2019-05-11] MEDS: ACIDOPHILUS/BULGARICUS 1 EACH TAB.CHEW GT SCH ×3 (09:00→17:00)
[2019-05-11] MEDS: MULTIVITAMINS,THERAGRAN 1 UDTAB TABLET GT SCH (09:00)
[2019-05-11] MEDS: ASCORBIC ACID 500 MG TABLET GT SCH ×2 (09:00→17:00)
[2019-05-11] MEDS: TRAMADOL HCL 50 MG TABLET GT SCH (09:00)
[2019-05-11] MEDS: METOPROLOL TARTRATE 25 MG TABLET GT SCH ×2 (09:00→17:00)
[2019-05-11] MEDS: ZINC SULFATE 220 MG CAPSULE GT SCH (09:00)
[2019-05-11] MEDS: NYSTATIN/TRIAMCIN CREAM 15 GM TUBE TP SCH ×2 (09:02→17:20)
[2019-05-11] MEDS: CLOTRIMAZOLE 1% 15 GM TUBE TP SCH ×2 (09:02→17:20)
[2019-05-11] MEDS: FAMOTIDINE/PF INJ 20 MG/2 ML VIAL IV SCH ×2 (09:06→21:00)
[2019-05-11] MEDS: IV 10% DEXTROSE 1,000 ML IV PRN (09:06)
[2019-05-11] MEDS: POTASSIUM CL. PREMIX PERIPHER. 50 ML IV SCH ×4 (09:57→13:00)
[2019-05-11] MEDS: INSULIN REGULAR, HUMAN 100 UNIT/ML 3 ML VIAL SQ PRN ×2 (11:55→17:54)
[2019-05-11 12:00] VITALS: BP 108/62
[2019-05-11] MEDS: LORAZEPAM INJ 2 MG/ML VIAL IV PRN (13:16)
[2019-05-11] MEDS: MORPHINE SULFATE INJ 2 MG/ML DISP.SYRIN IV PRN (15:31)
[2019-05-11 16:00] VITALS: BP 152/87
[2019-05-11] MEDS ORDERED: TPN/PPN PER PHARMACY IV PRN (17:30)
--- NOTE | 2019-05-11 18:32 | NUR ---
CRESTER OPENING NOTES PT IN BED OBTUNDED A/O X 1 SPONTANEOUS EYE OPENING NO SIGNS OR SYMPTOMS OF RESPIRATORY DISTRESS ON VENT TOLERATING SETTINGS VENT PLUGGED IN RED OUTLET AMBU BAG AT BEDSIDE NO SIGNS OF ACUTE PAIN NOTED OBTAINED ORDER FOR MORPHINE 2 MG TETE MIDLINE DRESSING CHANGED CLEAN INTACT AND PATENT, RUNNING WITH D10% @75 ML/HR PATIENT TO START ON TPN UNTIL FURTHER NOTICE ORDERED.G-TUBE NOT BEING USED PER MD CONNECTED TO LOW INTERMITTENT SUCTION. OLD SITE COMPRESSION DRESSING D/T LEAKING. DO NOT REMOVE DRESSING ONLY REINFORCE PER GIO TAN ROOM SUPERVISOR. HOB @ 25 DEGREES FOR SUTURE HEALING.SAFETY AND ASPIRATION PRECAUTIONS IN PLACE BED IS LOCKED AND IN LOWEST POSITION WILL ENDORSE TO NOC
--- NOTE | 2019-05-11 19:15 | NUR ---
ENDORSED REPORT TO NOC
--- NOTE | 2019-05-11 19:37 | NUR ---
DIRECTOR CONSUMER OPENING NOTES RECEIVED REPORT PT IN BED OBTUNDED A/O X 1 , ON VENT TOLERATING SETTINGS NO SIGNS OF ACUTE PAIN NOTED TETE MIDLINE INTACT AND PATENT, RUNNING WITH D10 @ 75 ML ORDERED.G-TUBE NOT BEING USED PER MD CONNECTED TO LOW INTERMITTENT SUCTION. OLD SITE COMPRESSION DRESSING D/T LEAKING HOB @ 25 DEGREES FOR SUTURE HEALING.SAFETY AND ASPIRATION PRECAUTIONS IN PLACE BED IS LOCKED AND IN LOWEST POSITION. CALL LIGHT WITHIN REACH. WILL CONT TO MONITOR ACCORDINGLY
[2019-05-11 20:00] VITALS: BP 148/86
--- NOTE | 2019-05-11 21:43 | NUR ---
RN NOTE GT MEDS HELD PER DURAN ANAND , S/P GT PLACEMENT, CONNECTED TO LOW CONTINOUS SUCTION.
[2019-05-11] MEDS: INSULIN GLARGINE, 100 UNIT/ML CARTRIDGE SQ SCH (22:00)
[2019-05-12] MEDS: IV 10% DEXTROSE 1,000 ML IV PRN
[2019-05-12] MEDS: MEROPENEM 500 MG in IV NS 0.9% 50 ML IV SCH ×3 (00:25→17:25)
[2019-05-12] MEDS: METOCLOPRAMIDE HCL 10 MG/2 ML VIAL IV SCH ×4 (00:25→17:27)
[2019-05-12 00:26] VITALS: BP 142/88
[2019-05-12] MEDS: LORAZEPAM INJ 2 MG/ML VIAL IV PRN (02:28)
[2019-05-12] MEDS: ALBUTEROL FS 2.5 MG/0.5 ML VIAL.NEB NEB SCH ×5 (03:13→19:47)
[2019-05-12 04:50] VITALS: BP 145/85
[2019-05-12] MEDS: BACLOFEN (10 MG) 10 MG TABLET GT SCH ×4 (05:00→21:52)
[2019-05-12] MEDS: MIDODRINE HCL (5MG) 5 MG TABLET GT SCH ×4 (05:00→21:58)
[2019-05-12] MEDS: clonazePAM 0.5 MG TABLET GT SCH ×4 (05:34→22:01)
[2019-05-12] MEDS: BLOOD SUGAR DIAGNOSTIC 1 EACH STRIP IN SCH ×5 (05:35→22:42)
--- NOTE | 2019-05-12 05:36 | NUR ---
RN NOTE GT MEDS HELD PER DURAN ANAND , S/P GT PLACEMENT, CONNECTED TO LOW CONTINOUS SUCTION.
--- NOTE | 2019-05-12 06:12 | NUR ---
RN CLOSING NOTE ENDORSED PT FOR KEVIN. GT CONNECTED TO CONTINOUS SUCTION.
[2019-05-12] MEDS: SUCRALFATE 1 G/10 ML UDC GT SCH ×5 (07:30→22:00)
--- NOTE | 2019-05-12 07:35 | NUR ---
CARE MANAGEMENT COORDINATOR OPENING NOTES RECEIVED BEDSIDE REPORT PT IN BED OBTUNDED A/O X 1 OPENS EYES SPONTANEOUSLY NO SIGNS OR SYMPTOMS OF RESPIRATORY DISTRESS ON VENT TOLERATING SETTINGS WELL.NO SIGNS OF ACUTE PAIN NOTED TETE MIDLINE INTACT AND PATENT, RUNNING WITH D10% @ 75 ML/HR ORDERED.G-TUBE NOT BEING USED PER MD CONNECTED TO LOW INTERMITTENT SUCTION. OLD SITE COMPRESSION DRESSING D/T LEAKING HOB @ 25 DEGREES FOR SUTURE HEALING.SAFETY AND ASPIRATION PRECAUTIONS IN PLACE BED IS LOCKED AND IN LOWEST POSITION. CALL LIGHT WITHIN REACH. WILL CONT TO MONITOR ACCORDINGLY
--- NOTE | 2019-05-12 07:40 | NUR ---
INTERNET SALESPERSON NOTES SPOKE WITH LAB IN REGARDS TO PATIENT IS TO START ON TPN. SPOKE WITH LOPEZ 05/11 AND VERIFIED WITH DURAN ANAND
[2019-05-12 07:53] LABS: BASOPHILS % (AUTO) 0.3 % (0.0-2.0); EOSINOPHILS % (AUTO) 4.2 % (0.0-6.0); HEMATOCRIT 38 % (39-51); HEMOGLOBIN 12.4 g/dL (13.5-17.5); LYMPHOCYTES # (AUTO) 2.5 /CMM (0.8-4.8); LYMPHOCYTES % (AUTO) 23.4 % (20.0-44.0); MEAN CORPUSCULAR HGB CONC 33 g/dl (31.0-36.0); MEAN CORPUSCULAR VOLUME 92 fL (80-96); MONOCYTES % (AUTO) 9.3 % (2.0-12.0); NEUTROPHILS # (AUTO) 6.7 /CMM (1.8-8.9); NEUTROPHILS % (AUTO) 62.8 % (43.0-81.0); PLATELET COUNT (AUTO) 292 /CMM (150-450); RED BLOOD CELL COUNT(AUTO) 4.11 MIL/uL (4.5-6.0); WHITE BLOOD COUNT (AUTO) 10.7 K/uL (4.3-11.0)
[2019-05-12 08:00] VITALS: BP 143/86
[2019-05-12] MEDS: ACIDOPHILUS/BULGARICUS 1 EACH TAB.CHEW GT SCH ×3 (08:00→17:00)
[2019-05-12] MEDS: METOPROLOL TARTRATE 25 MG TABLET GT SCH ×2 (08:00→17:00)
[2019-05-12] MEDS: DOCUSATE SODIUM LIQ 100 MG/10 ML UDC GT SCH (08:00)
[2019-05-12 08:01] LABS: CHOLESTEROL 120 mg/dL (<200); HDL CHOLESTEROL 40 mg/dL (40-60); LDL 53 mg/dL (0-99); TRIGLYCERIDES 238 mg/dL (30-150)
[2019-05-12] MEDS: MULTIVITAMINS,THERAGRAN 1 UDTAB TABLET GT SCH (08:01)
[2019-05-12] MEDS: ZINC SULFATE 220 MG CAPSULE GT SCH (08:01)
[2019-05-12] MEDS: TRAMADOL HCL 50 MG TABLET GT SCH (08:01)
[2019-05-12] MEDS: ASCORBIC ACID 500 MG TABLET GT SCH ×2 (08:01→17:00)
[2019-05-12 08:07] LABS: CALCIUM, SERUM 9.7 mg/dL (8.5-10.1); CREATININE 0.8 mg/dL (0.6-1.3); MAGNESIUM 1.9 mg/dL (1.8-2.4); PHOSPHORUS 2.5 mg/dL (2.5-4.9); POTASSIUM 3.7 mmol/L (3.5-5.1)
[2019-05-12] MEDS ORDERED: FEE TPN 1 MIN EA MC ONE (08:46)
[2019-05-12] MEDS: FAMOTIDINE/PF INJ 20 MG/2 ML VIAL IV SCH ×2 (08:50→22:00)
[2019-05-12] MEDS: MORPHINE SULFATE INJ 2 MG/ML DISP.SYRIN IV PRN (08:51)
[2019-05-12] MEDS ORDERED: TPN BAG #1 IV PRN ×15 (09:00→09:08)
[2019-05-12] MEDS: CLOTRIMAZOLE 1% 15 GM TUBE TP SCH ×2 (09:04→17:25)
[2019-05-12] MEDS: NYSTATIN/TRIAMCIN CREAM 15 GM TUBE TP SCH ×2 (09:04→17:25)
--- NOTE | 2019-05-12 10:12 | NUR ---
EXPERIMENTAL MECHANIC OUTBOARD MOTORS NOTES TPN STARTED BAG ONE INFUSING
[2019-05-12 12:00] VITALS: BP 128/64
[2019-05-12] MEDS: INSULIN REGULAR, HUMAN 100 UNIT/ML 3 ML VIAL SQ PRN ×2 (13:06→17:26)
[2019-05-12] MEDS ORDERED: TPN BAG #2 IV PRN ×5 (15:00)
[2019-05-12 16:00] VITALS: BP 148/81
--- NOTE | 2019-05-12 18:25 | NUR ---
CELL EFFICIENCY SUPERVISOR NOTES NO SIGNIFICANT CHANGES THROUGHOUT SHIFT. PATIENT A/O X1 OPENS EYES SPONTANEOUSLY. NO SIGNS OR SYMPTOMS OF RESPIRATORY DISTRESS TOLERATING MECH VENT SETTINGS ORDERED. NO PAIN NOTED MORPHINE GIVEN 1X FOR FACIAL GRIMACING.SINUS ON MONITOR 80'S. DIAZ CATH DRAINING CLEAR YELLOW URINE NEW GT CLAMPED OLD SITE SUTURED WITH COMPRESSION DRESSING WITH ORSERS TO NOT REMOVE ONLY REINFORCE AND KEEP HOB @ 25 DEGREES. TETE MIDLINE #18 GAUGE RUNNING TPN @ 50 ML/HR. ACCU CHECK Q6HR. NO EPISODES OF HYPER/HYPOGLYCEMIA. SAFETY AND ASPIRATION PRECAUTIONS IN PLACE BED IN LOW POSITION WILL ENDORSE TO NOC.
--- NOTE | 2019-05-12 19:26 | NUR ---
REPORT ENDORSED TO NOC
[2019-05-12 20:00] VITALS: BP 150/78
[2019-05-12] MEDS: INSULIN GLARGINE, 100 UNIT/ML CARTRIDGE SQ SCH (22:00)
[2019-05-13] VITALS: BP 163/85
--- NOTE | 2019-05-13 | NUR ---
RN NOTES: NOTED OLD GTUBE SITE DRESSING SOAKING WET AND A LOT OF GASTRIC DRAINAGE AROUND THE SITE, AND OUT OF THE DRESSING, INFORMED LEAD PYTHON DEVELOPER, PT'S GOWN SOAKING WET. PER CLINICAL ASSESSMENT THIS NEEDS TO BE CLEAN AND DRESSING NEEDS TO BE CHANGE TO PREVENT FURTHER INFECTION AND BACTERIAL GROWTH. CLEANSED AREA WITH NS PAT DRY, PRESSURED DRESSING APPLIED, COVERED WITH FOAM DRESSING.
[2019-05-13] MEDS: ALBUTEROL FS 2.5 MG/0.5 ML VIAL.NEB NEB SCH ×7 (00:18→23:40)
[2019-05-13] MEDS: MEROPENEM 500 MG in IV NS 0.9% 50 ML IV SCH ×3 (01:13→16:36)
[2019-05-13] MEDS: METOCLOPRAMIDE HCL 10 MG/2 ML VIAL IV SCH ×5 (01:14→23:31)
[2019-05-13 04:00] VITALS: BP 160/95
[2019-05-13] MEDS: clonazePAM 0.5 MG TABLET GT SCH ×3 (05:00→20:56)
[2019-05-13] MEDS: BLOOD SUGAR DIAGNOSTIC 1 EACH STRIP IN SCH ×4 (05:20→23:31)
[2019-05-13] MEDS: INSULIN REGULAR, HUMAN 100 UNIT/ML 3 ML VIAL SQ PRN (05:21)
[2019-05-13 07:06] LABS: BASOPHILS # (AUTO) 0.2 /CMM (0.0-0.2); BASOPHILS % (AUTO) 1.8 % (0.0-2.0); EOSINOPHILS % (AUTO) 3.4 % (0.0-6.0); HEMATOCRIT 35 % (39-51); HEMOGLOBIN 11.7 g/dL (13.5-17.5); LYMPHOCYTES # (AUTO) 2.9 /CMM (0.8-4.8); LYMPHOCYTES % (AUTO) 26.5 % (20.0-44.0); MEAN CORPUSCULAR HGB CONC 34 g/dl (31.0-36.0); MEAN CORPUSCULAR VOLUME 91 fL (80-96); MONOCYTES % (AUTO) 9.4 % (2.0-12.0); NEUTROPHILS # (AUTO) 6.4 /CMM (1.8-8.9); NEUTROPHILS % (AUTO) 58.9 % (43.0-81.0); PLATELET COUNT (AUTO) 287 /CMM (150-450); RED BLOOD CELL COUNT(AUTO) 3.83 MIL/uL (4.5-6.0); WHITE BLOOD COUNT (AUTO) 10.9 K/uL (4.3-11.0)
[2019-05-13 07:21] LABS: POTASSIUM 3.5 mmol/L (3.5-5.1)
[2019-05-13 07:22] LABS: CALCIUM, SERUM 9.1 mg/dL (8.5-10.1); CREATININE 0.7 mg/dL (0.6-1.3); MAGNESIUM 2.1 mg/dL (1.8-2.4); PHOSPHORUS 2.8 mg/dL (2.5-4.9)
--- NOTE | 2019-05-13 07:25 | NUR ---
RN OPENING NOTES RECEIVED PATIENT IN BED RESTING COMFORTABLY. PATIENT ABLE TO RESPOND TO TACTILE STIMULI. NO FACIAL GRIMACING OR ACUTE DISTRESS AT THIS TIME. RESPIRATION EVEN AND UNLABORED. SKIN IS DRY WARM TO TOUCH. OPENS EYES SPONTANEOUSLY. PATIENT ON VENT TOLERATING SETTINGS WELL. NOTED WITH TETE MIDLINE INTACT AND PATENT. NO S/S OF INFECTION OR INFILTRATION. G-TUBE IN PLACE. NOT BEING USED PER MD CONNECTED TO LOW INTERMITTENT SUCTION. OLD SITE COMPRESSION DRESSING D/T LEAKING HOB ELEVATED FOR SUTURE HEALING. ALL NEEDS ANTICIPATED. KEPT CLEAN AND DRY. CALL LIGHT WITHIN REACHED. BED LOCKED AND IN LOWEST POSITION. SAFETY AND ASPIRATION PRECAUTIONS IN PLACE. CALL LIGHT WITHIN REACH. WILL CONTINUE TO MONITOR CLOSELY.
[2019-05-13 08:00] VITALS: BP 125/65
[2019-05-13] MEDS: MULTIVITAMINS,THERAGRAN 1 UDTAB TABLET GT SCH (09:00)
[2019-05-13] MEDS: ZINC SULFATE 220 MG CAPSULE GT SCH (09:00)
[2019-05-13] MEDS: ASCORBIC ACID 500 MG TABLET GT SCH ×2 (09:00→16:31)
[2019-05-13] MEDS: METOPROLOL TARTRATE 25 MG TABLET GT SCH ×2 (09:00→16:31)
[2019-05-13] MEDS: ACIDOPHILUS/BULGARICUS 1 EACH TAB.CHEW GT SCH ×3 (09:00→16:31)
[2019-05-13] MEDS: DOCUSATE SODIUM LIQ 100 MG/10 ML UDC GT SCH (09:00)
[2019-05-13] MEDS: TRAMADOL HCL 50 MG TABLET GT SCH (09:00)
[2019-05-13] MEDS: NYSTATIN/TRIAMCIN CREAM 15 GM TUBE TP SCH ×2 (09:18→16:34)
[2019-05-13] MEDS: FAMOTIDINE/PF INJ 20 MG/2 ML VIAL IV SCH ×2 (09:36→22:07)
[2019-05-13] MEDS ORDERED: TPN BAG #3 IV PRN ×7 (11:00)
[2019-05-13] MEDS: CLOTRIMAZOLE 1% 15 GM TUBE TP SCH ×2 (11:09→16:34)
[2019-05-13] MEDS: SUCRALFATE 1 G/10 ML UDC GT SCH ×3 (11:37→20:57)
[2019-05-13 12:00] VITALS: BP 143/78
[2019-05-13] MEDS: BACLOFEN (10 MG) 10 MG TABLET GT SCH ×2 (12:20→20:57)
[2019-05-13] MEDS: MIDODRINE HCL (5MG) 5 MG TABLET GT SCH ×2 (12:20→20:57)
[2019-05-13 16:00] VITALS: BP 140/79
--- NOTE | 2019-05-13 18:53 | NUR ---
RN CLOSING NOTES PATIENT CONTINUES TO REMAIN IS STABLE CONDITION. PROVIDED COMFORT AND SAFETY. NO PAIN OR ACUTE DISTRESS AT THIS TIME. RESPIRATION EVEN AND UNLABORED. SKIN IS DRY WARM TO TOUCH. PATIENT ABLE TO TOLERATE TPN AND MEDICATIONS WELL. NO ADVERSE REACTIONS AT THIS TIME. TETE IV ACCESS INTACT AND PATENT. NO S/S OF INFECTION OR INFILTRATION. FLUSHING WELL. HOB ELEVATED AT ALL TIMES. ALL NEEDS ANTICIPATED. KEPT CLEAN AND DRY. CALL LIGHT WITHIN REACHED. BED LOCKED AND IN LOWEST POSITION. WILL CONTINUE TO MONITOR.
--- NOTE | 2019-05-13 19:30 | NUR ---
RN INITIAL NOTES: RECEIVED REPORT FROM PATRICA DELCID. PT MECH VENT TRACHE DEPENDENT, CONNECTED TO CONTINUOUS PULSE OXIMETRY, AMBU BAG AT BED SIDE. CLINICAL ALARMS CHECKED AND AUDIBLE. PT IS OBTUNDED. HAS GTUBE LEAKING, AWARE, GTUBE CONNECTED TO LOW INTERMITTENT SUCTION. PT HAS TETE MIDLINE , PATENT AND FLUSHING WELL, INFUSING WITH TPN BAG #2 AT 50ML/HR. BUE AND BLE OFFLOADED ON PILLOWS. PT ON ISOLATION, WOUND ESBL, PPE UTILIZED IN TAKING CARE OF PT. PT ON TELE SINUS RHYTHM HR 80. SAFETY PRECAUTIONS FOR FALL INITIATED, CALL LIGHT IN REACH, WILL CONTINUE MONITORING PT.
[2019-05-13 20:00] VITALS: BP 150/71
--- NOTE | 2019-05-13 20:57 | NUR ---
RN NOTES: PER MD HOLD ALL MEDS VIA GTUBE, ONLY GIVE IV MEDS. SCHEDULED MEDS FOR TONIGHT VIA GTUBE NOT ADMINISTERED ORDERED.
[2019-05-13] MEDS: INSULIN GLARGINE, 100 UNIT/ML CARTRIDGE SQ SCH (22:18)
--- NOTE | 2019-05-13 23:38 | NUR ---
TPN BAG #3: ABOVE TPN COMPLETED/FINISHED. TPN BAG #3 ADMINISTERED, COSIGNED CO-WITNESSED BY VULNERABILITY ASSESSMENT ANALYSTOCTAVIA CUMMINGS
[2019-05-14] VITALS (7 sets, daily range): BP systolic 104–168; BP diastolic 55–79
[2019-05-14] MEDS: MEROPENEM 500 MG in IV NS 0.9% 50 ML IV SCH ×3 (00:01→17:43)
[2019-05-14] MEDS: clonazePAM 0.5 MG TABLET GT SCH ×3 (04:32→21:00)
[2019-05-14] MEDS: MIDODRINE HCL (5MG) 5 MG TABLET GT SCH ×3 (04:32→21:00)
[2019-05-14] MEDS: BACLOFEN (10 MG) 10 MG TABLET GT SCH ×3 (04:32→21:00)
--- NOTE | 2019-05-14 04:33 | NUR ---
NON ADMIN OF PO MEDS VIA GTUBE: PER MD TO HOLD ALL MEDS VIA GTUBE, SCHEDULE MEDS NOT ADMINISTER AT THIS TIME
[2019-05-14] MEDS: IPRATROPIUM NEB FS 0.5 MG/2.5 ML AMPUL.NEB NEB PRN ×2 (04:39→23:47)
[2019-05-14] MEDS: ALBUTEROL FS 2.5 MG/0.5 ML VIAL.NEB NEB SCH ×6 (04:39→23:47)
[2019-05-14] MEDS: METOCLOPRAMIDE HCL 10 MG/2 ML VIAL IV SCH ×3 (05:33→17:43)
[2019-05-14] MEDS: BLOOD SUGAR DIAGNOSTIC 1 EACH STRIP IN SCH ×3 (05:34→17:56)
--- NOTE | 2019-05-14 05:34 | NUR ---
ACCU CHECK 115: BLOOD SUGAR 115, NO INSULIN COVERAGE GIVEN PER SLIDING SCALE
--- NOTE | 2019-05-14 06:23 | NUR ---
pt rec'd trached on [facility] vent on AC mode. no Resp distress or sob noted. no resp distress or sob noted. sx for small amount of pale yellow secretions. alarms are set and audible. vent plugged into red outlet. ambu bag bedside. will continue to monitor. Addendum: 05/14/19 at 0625 by ELMER MIMS RT Amended: Links added.
--- NOTE | 2019-05-14 06:32 | NUR ---
RN CLOSING NOTES: PT REMAINS OBTUNDED, [facility]. IV ACCESS INFUSING WITH TPN AT 70ML/HR. BUE AND BLE OFFLOADED ON PILLOWS. CONDOM CATHETER IN PLACED. OLD GTUBE SITE STILL NOTED TO BE LEAKING, CONNECTED TO LOW INTERMITTENT SUCTION. KEPT HOB ELEVATED TO 25 DEGREE. VS REMAINS STABLE, NEEDS ATTENDED. SAFETY PRECAUTIONS FOR FALL INITIATED, CALL LIGHT IN REACH, WILL ENDORSE TO DAY RN FOR CONTINUITY OF CARE.
[2019-05-14] MEDS: SUCRALFATE 1 G/10 ML UDC GT SCH ×4 (07:30→21:38)
--- NOTE | 2019-05-14 07:30 | NUR ---
MANAGEMENT LIAISON INITIAL NOTES RECEIVED REPORT FROM PM NURSE. PT IN BED, OBTUNDED. ON VENT TO TRACH. SETTINGS MD ORDERED. TETE MIDLINE IV INFUSING TPN AT 70ML/HR. HOB ELEVATED 30DEG. GT DRESSING IN PLACE. PM NURSE DID DRESSING CHANGE. BED IN LOCKED/LOWEST POSITION. VS WNL. CALL LIGHT IN REACH. WILL CONT TO MONITOR.
[2019-05-14 07:40] LABS: CREATININE 0.7 mg/dL (0.6-1.3); MAGNESIUM 1.9 mg/dL (1.8-2.4); PHOSPHORUS 2.3 mg/dL (2.5-4.9); POTASSIUM 3.1 mmol/L (3.5-5.1)
[2019-05-14] MEDS: ASCORBIC ACID 500 MG TABLET GT SCH ×2 (09:00→17:00)
[2019-05-14] MEDS: METOPROLOL TARTRATE 25 MG TABLET GT SCH ×2 (09:00→17:00)
[2019-05-14] MEDS: TRAMADOL HCL 50 MG TABLET GT SCH (09:00)
[2019-05-14] MEDS: ZINC SULFATE 220 MG CAPSULE GT SCH (09:00)
[2019-05-14] MEDS: ACIDOPHILUS/BULGARICUS 1 EACH TAB.CHEW GT SCH ×3 (09:00→17:00)
[2019-05-14] MEDS: MULTIVITAMINS,THERAGRAN 1 UDTAB TABLET GT SCH (09:00)
[2019-05-14] MEDS: DOCUSATE SODIUM LIQ 100 MG/10 ML UDC GT SCH (09:00)
[2019-05-14] MEDS: FAMOTIDINE/PF INJ 20 MG/2 ML VIAL IV SCH ×2 (09:41→21:39)
[2019-05-14] MEDS: NYSTATIN/TRIAMCIN CREAM 15 GM TUBE TP SCH ×2 (09:45→17:54)
[2019-05-14] MEDS: CLOTRIMAZOLE 1% 15 GM TUBE TP SCH ×2 (09:45→17:55)
[2019-05-14] MEDS ORDERED: TPN BAG #4 IV PRN ×6 (14:00)
--- NOTE | 2019-05-14 19:00 | NUR ---
QUALITY CONTROL ASSOCIATE END OF SHIFT NOTES ENDORSED TO PM NURSE FOR KEVIN. NO SIGNIFICANT CHANGES NOTED. PT ON TPN. TOLERATED WELL. PT STABLE ON VENT.
--- NOTE | 2019-05-14 19:40 | NUR ---
TRIMMING CUTTER MACHINE NOTES, RECEIVED PATIENT IN BED OBTUNDED, ON MECHANICAL VENTILATOR, TOLERATED WELL, NO SOB/ACUTE DISTRESS NOTED AT THIS TIME, NSR WITH FIRST DEGREE IN THE TELE MONITOR, HR IN THE 60S AT THIS TIME, TETE MIDLINE IV INFUSING TPN AT 70ML/HR, NO S/S OF INFILTRATION AT SITE, HOB ELEVATED AT ALL TIMES FOR ASPIRATION PRECAUTIONS, GT DRESSING IN PLACE, MINIMAL DRAINAGE NOTED AT THIS TIME, BED IN LOCKED/LOWEST POSITION, CALL LIGHT IN REACH, WILL CONTINUE TO MONITOR CLOSELY.
[2019-05-14] MEDS: INSULIN GLARGINE, 100 UNIT/ML CARTRIDGE SQ SCH (21:45)
[2019-05-15] VITALS: BP 148/66
[2019-05-15] MEDS: BLOOD SUGAR DIAGNOSTIC 1 EACH STRIP IN SCH ×5 (00:08→23:32)
[2019-05-15] MEDS: METOCLOPRAMIDE HCL 10 MG/2 ML VIAL IV SCH ×5 (00:10→23:32)
[2019-05-15] MEDS: MEROPENEM 500 MG in IV NS 0.9% 50 ML IV SCH ×3 (00:11→16:39)
[2019-05-15] MEDS: INSULIN REGULAR, HUMAN 100 UNIT/ML 3 ML VIAL SQ PRN ×2 (00:12→06:04)
--- NOTE | 2019-05-15 00:30 | NUR ---
TIRE CLASSIFIER NOTES, PATIENT ASSESSED BY DR CONLEY AT THIS TIME, AND ORDERED TO PREPARE CONSENT FOR PROCEDURE AROUND NOON, TODAY AND ENDORSE TO MORNING SHIFT TO GET CONSENT FROM RP FOR OPEN EXCISION OF GASTROCUTANEOUS FISTULA POSSIBLE PARTIAL GASTRECTOMY, POSSIBLE ENDOSCOPY, POSSIBLE GTF REPLACEMENT, NOTED AND CARRIED OUT.
[2019-05-15] MEDS: ALBUTEROL FS 2.5 MG/0.5 ML VIAL.NEB NEB SCH ×6 (03:50→22:57)
[2019-05-15 04:00] VITALS: BP 147/66
[2019-05-15] MEDS: MIDODRINE HCL (5MG) 5 MG TABLET GT SCH ×3 (05:00→20:33)
[2019-05-15] MEDS ORDERED: TPN BAG #5 IV PRN ×8 (05:00)
[2019-05-15] MEDS: BACLOFEN (10 MG) 10 MG TABLET GT SCH ×3 (05:00→20:33)
[2019-05-15] MEDS: clonazePAM 0.5 MG TABLET GT SCH ×3 (05:00→20:33)
--- NOTE | 2019-05-15 06:22 | NUR ---
FLOOR COVERING PRINTER ASSISTANT NOTES, PATIENT IN BED OBTUNDED, WITH EYES OPEN, ON MECHANICAL VENTILATOR, TOLERATED WELL, NO SOB/ACUTE DISTRESS NOTED AT THIS TIME, NSR WITH FIRST DEGREE IN THE TELE MONITOR , HR IN THE 70S AT THIS TIME, TETE MIDLINE IV INFUSING TPN AT 70ML/HR, NO S/S OF INFILTRATION AT SITE, HOB ELEVATED AT ALL TIMES FOR ASPIRATION PRECAUTIONS, GT DRESSING ORDERED, MINIMAL DRAINAGE NOTED AT THIS TIME, ASSESSED BY YAEL AT MIDNIGHT, GT MEDS NOT ADMINISTERED, AND NO INSULIN FOR SLIDING SCALE ADMINISTERED, CONTINUE ON LOW INTERMITTENT SUCTION, AND WILL HAVE PROCEDURE TODAY, BED IN LOCKED/LOWEST POSITION, CALL LIGHT W/I REACH, WILL ENDORSE CONTINUITY OF CARE TO ONCOMING NURSE.
[2019-05-15 07:20] LABS: CALCIUM, SERUM 8.8 mg/dL (8.5-10.1); CREATININE 0.6 mg/dL (0.6-1.3); MAGNESIUM 1.9 mg/dL (1.8-2.4); PHOSPHORUS 2.1 mg/dL (2.5-4.9); POTASSIUM 3.3 mmol/L (3.5-5.1)
[2019-05-15] MEDS: SUCRALFATE 1 G/10 ML UDC GT SCH ×4 (07:30→21:22)
--- NOTE | 2019-05-15 07:30 | NUR ---
PET CREMATORY WORKER INITIAL NOTES RECEIVED PT IN BED, OBTUNDED. EYES OPEN. VENT TO TRACH SETTINGS MD ORDERED. PT'S O2 WNL. NO S/SX OF LABORED BREATHING ON TELE SR. PT SCHEDULED FOR GT PROCEDURE TODAY. TETE MIDLINE INFUSING TPN AT 70ML/HR. OLD GT SITE WITH PRESSURE DRESSING. NEW GT SITE TO LOW INTERMITTENT SUCTION MD ORDERED. ON CONTACT ISOLATION FOR ESBL WOUND. BED IN LOCKED/LOWEST POSITION. CALL LIGHT IN REACH. WILL CONT TO MONITOR.
[2019-05-15 08:00] VITALS: BP 158/66
[2019-05-15] MEDS: METOPROLOL TARTRATE 25 MG TABLET GT SCH ×2 (08:18→16:34)
[2019-05-15] MEDS: ACIDOPHILUS/BULGARICUS 1 EACH TAB.CHEW GT SCH ×3 (08:18→16:34)
[2019-05-15] MEDS: DOCUSATE SODIUM LIQ 100 MG/10 ML UDC GT SCH (08:18)
[2019-05-15] MEDS: MULTIVITAMINS,THERAGRAN 1 UDTAB TABLET GT SCH (08:19)
[2019-05-15] MEDS: ZINC SULFATE 220 MG CAPSULE GT SCH (08:19)
[2019-05-15] MEDS: TRAMADOL HCL 50 MG TABLET GT SCH (08:19)
[2019-05-15] MEDS: ASCORBIC ACID 500 MG TABLET GT SCH ×2 (08:19→16:35)
[2019-05-15] MEDS: MORPHINE SULFATE INJ 2 MG/ML DISP.SYRIN IV PRN (08:48)
[2019-05-15] MEDS: FAMOTIDINE/PF INJ 20 MG/2 ML VIAL IV SCH ×2 (08:48→20:35)
[2019-05-15] MEDS: CLOTRIMAZOLE 1% 15 GM TUBE TP SCH ×2 (08:54→19:07)
[2019-05-15] MEDS: NYSTATIN/TRIAMCIN CREAM 15 GM TUBE TP SCH ×2 (08:55→19:07)
[2019-05-15] MEDS: IPRATROPIUM NEB FS 0.5 MG/2.5 ML AMPUL.NEB NEB PRN (10:37)
--- NOTE | 2019-05-15 11:15 | NUR ---
KUSUM DELCID NOTES PER TRENT ROSE WILL NOT BE HAVING GT PROCEDURE TODAY. Addendum: 05/15/19 at 1117 by EMMY ARCOS RN ROSETTA DANG IS AWARE.
[2019-05-15 12:00] VITALS: BP 131/64
[2019-05-15 12:26] LABS: BASOPHILS # (AUTO) 0.2 /CMM (0.0-0.2); BASOPHILS % (AUTO) 2.2 % (0.0-2.0); EOSINOPHILS % (AUTO) 2.8 % (0.0-6.0); HEMATOCRIT 35 % (39-51); HEMOGLOBIN 11.5 g/dL (13.5-17.5); LYMPHOCYTES # (AUTO) 2.9 /CMM (0.8-4.8); LYMPHOCYTES % (AUTO) 34.9 % (20.0-44.0); MEAN CORPUSCULAR HGB CONC 33 g/dl (31.0-36.0); MEAN CORPUSCULAR VOLUME 93 fL (80-96); MONOCYTES % (AUTO) 11.4 % (2.0-12.0); NEUTROPHILS # (AUTO) 4.1 /CMM (1.8-8.9); NEUTROPHILS % (AUTO) 48.7 % (43.0-81.0); PLATELET COUNT (AUTO) 267 /CMM (150-450); RED BLOOD CELL COUNT(AUTO) 3.77 MIL/uL (4.5-6.0); WHITE BLOOD COUNT (AUTO) 8.4 K/uL (4.3-11.0)
[2019-05-15] MEDS ORDERED: TPN BAG #6 IV PRN ×6 (15:00)
[2019-05-15] MEDS ORDERED: TPN BAG #7 IV PRN ×8 (15:00)
[2019-05-15 16:00] VITALS: BP_SYST 128; BP_SYST 131; BP_DIAS 59; BP_DIAS 64
--- NOTE | 2019-05-15 16:33 | NUR ---
HUMAN RESOURCES COORDINATOR NOTES LEFT VM FOR SON, REGARDING PICC LINE CONSENT. AWAITING CALL BACK. PT NEEDS PICC LINE FOR TPN PER PHARMACY
--- NOTE | 2019-05-15 17:50 | NUR ---
CENTRAL VENOUS CATHETER INSERTION PATIENT PREP IN STERILE FASHION WITH CHLORHEXIDINE AND COMPLETELY ALLOWED TO DRY. INSERTION SITE DETERMINED WITH ULTRASOUND AT LEFT IJ WITH VEIN PATENT, COMPRESSIBLE AND ADEQUATE DIAMETER. LIDOCAINE INJECTED WITH ANESTHESIA. VEIN ACCESSED WITH NEEDLE UNDER ULTRASOUND GUIDEANCE./ Addendum: 05/15/19 at 1758 by LEANA CARVAJAL RN GUIDEWIRE INSERTED THROUGH NEEDLE AND NEEDLE REMOVED. SCALPEL USE TO OPEN SKIN, CUT SIZE 2 ML. DILATOR INSERTED OVER GUIDEWIRE AND REMOVED. CATHETER INSERTED OVER GUIDEWIRE AND GUIDE WIRE REMOVED. BLOOD RETURN AT ALL 3 PORTS AND FLUSHED WITH NO RESISTANCE. CATHETER SECURE WITH TWO SUTURES. BIO PATCH PLACED AND COVERED WITH TEGADERM. NO COMPLICATION THROUGHOUT PROCEDURES. TOLERATED WELL WITH MINIMAL BLOOD LOSS. EBL 2 ML. CXR ORDERED FOR CONFIRMATION.
--- NOTE | 2019-05-15 18:48 | NUR ---
DAIRY FEED SALES CONSULTANT NOTES PT TOLERATED CENTRAL LINE PROCEDURE. PLACED ON L SIDE OF NECK. SON ALTON CONSENTED. PICC LINE UNSUCCESSFUL D/T PT BEING CONTRACTED. STAT CHEST XR ORDERED FOR CONFIRMATION. WILL MONITOR.
--- NOTE | 2019-05-15 19:30 | NUR ---
DOBBY LOOM WEAVER CLOSING NOTES PT ENDORSED TO PM NURSE. TPN INFUSION CONTINUING TO RUN IN NEW CENTRAL LEFT IJ. PT STABLE. NO S/SX OF RESP DISTRESS. BED IN LOCKED/LOWEST POSITION. CALL LIGHT IN REACH.
[2019-05-15 20:00] VITALS: BP 162/49
[2019-05-15] MEDS: hydrALAZINE HCL IV 20 MG VIAL IV PRN (20:36)
[2019-05-15] MEDS: INSULIN GLARGINE, 100 UNIT/ML CARTRIDGE SQ SCH (22:00)
[2019-05-16] VITALS: BP 114/37
[2019-05-16] MEDS: MEROPENEM 500 MG in IV NS 0.9% 50 ML IV SCH ×3 (00:08→18:37)
[2019-05-16] MEDS: ALBUTEROL FS 2.5 MG/0.5 ML VIAL.NEB NEB SCH ×6 (03:15→23:23)
[2019-05-16 04:00] VITALS: BP 130/39
[2019-05-16] MEDS: clonazePAM 0.5 MG TABLET GT SCH ×3 (04:00→21:01)
[2019-05-16] MEDS: BACLOFEN (10 MG) 10 MG TABLET GT SCH ×3 (04:00→21:03)
[2019-05-16] MEDS: MIDODRINE HCL (5MG) 5 MG TABLET GT SCH ×3 (04:00→21:03)
[2019-05-16] MEDS: BLOOD SUGAR DIAGNOSTIC 1 EACH STRIP IN SCH ×3 (06:06→18:37)
[2019-05-16] MEDS: METOCLOPRAMIDE HCL 10 MG/2 ML VIAL IV SCH ×3 (06:10→18:37)
[2019-05-16 06:57] LABS: BASOPHILS # (AUTO) 0.2 /CMM (0.0-0.2); BASOPHILS % (AUTO) 2.2 % (0.0-2.0); EOSINOPHILS % (AUTO) 3.4 % (0.0-6.0); HEMATOCRIT 34 % (39-51); HEMOGLOBIN 11.2 g/dL (13.5-17.5); LYMPHOCYTES # (AUTO) 2.4 /CMM (0.8-4.8); LYMPHOCYTES % (AUTO) 33.3 % (20.0-44.0); MEAN CORPUSCULAR HGB CONC 33 g/dl (31.0-36.0); MEAN CORPUSCULAR VOLUME 92 fL (80-96); MONOCYTES # (AUTO) 0.8 /CMM (0.1-1.30); MONOCYTES % (AUTO) 11.2 % (2.0-12.0); NEUTROPHILS # (AUTO) 3.6 /CMM (1.8-8.9); NEUTROPHILS % (AUTO) 49.9 % (43.0-81.0); PLATELET COUNT (AUTO) 261 /CMM (150-450); RED BLOOD CELL COUNT(AUTO) 3.73 MIL/uL (4.5-6.0); WHITE BLOOD COUNT (AUTO) 7.3 K/uL (4.3-11.0)
[2019-05-16 06:59] LABS: CALCIUM, SERUM 8.9 mg/dL (8.5-10.1); CREATININE 0.7 mg/dL (0.6-1.3); PHOSPHORUS 2.3 mg/dL (2.5-4.9); POTASSIUM 3.7 mmol/L (3.5-5.1)
[2019-05-16] MEDS: IPRATROPIUM NEB FS 0.5 MG/2.5 ML AMPUL.NEB NEB PRN ×3 (07:22→16:13)
[2019-05-16] MEDS: SUCRALFATE 1 G/10 ML UDC GT SCH ×4 (07:30→21:03)
[2019-05-16 08:00] VITALS: BP 119/68
[2019-05-16] MEDS: MULTIVITAMINS,THERAGRAN 1 UDTAB TABLET GT SCH (09:00)
[2019-05-16] MEDS: ASCORBIC ACID 500 MG TABLET GT SCH ×2 (09:00→17:00)
[2019-05-16] MEDS: TRAMADOL HCL 50 MG TABLET GT SCH (09:00)
[2019-05-16] MEDS: FAMOTIDINE/PF INJ 20 MG/2 ML VIAL IV SCH ×2 (09:00→21:01)
[2019-05-16] MEDS: METOPROLOL TARTRATE 25 MG TABLET GT SCH ×2 (09:00→17:00)
[2019-05-16] MEDS: DOCUSATE SODIUM LIQ 100 MG/10 ML UDC GT SCH (09:00)
[2019-05-16] MEDS: ZINC SULFATE 220 MG CAPSULE GT SCH (09:00)
[2019-05-16] MEDS: ACIDOPHILUS/BULGARICUS 1 EACH TAB.CHEW GT SCH ×3 (09:00→17:00)
--- NOTE | 2019-05-16 09:07 | NUR ---
RT PATIENT RECEIVED TRACH ([employer] [place] #[id number] CUFFED) ON MECHANICAL VENT WITH SETTINGS PER MD ORDER. ACTIVE DIRECTORY SPECIALIST DONE. VENT PLUGGED INTO RED OUTLET. SPARE TRACH AND AMBU BAG AT BEDSIDE. BREATHING TX'S GIVEN ORDERED. NO ADVERSE REACTIONS OBSERVED. SUCTIONED SMALL AMOUNTS OF PALE YELLOW SECRETIONS. ALARMS ON AND AUDIBLE. WILL CONTINUE TO MONITOR THE PATIENT FOR ANY CHANGES. Addendum: 05/16/19 at 1821 by JULIO CHAN RT Amended: Links added.
[2019-05-16 12:00] VITALS: BP 111/65
[2019-05-16] MEDS: NYSTATIN/TRIAMCIN CREAM 15 GM TUBE TP SCH ×2 (12:53→17:44)
[2019-05-16] MEDS: CLOTRIMAZOLE 1% 15 GM TUBE TP SCH ×2 (12:54→17:44)
[2019-05-16] MEDS ORDERED: TPN BAG #8 IV PRN ×6 (14:30)
[2019-05-16] MEDS: POTASSIUM PHOSPHATE MM 5 MMOL in IV D5W 100 ML IV SCH ×2 (15:34→17:44)
[2019-05-16 16:00] VITALS: BP 138/78
--- NOTE | 2019-05-16 19:30 | NUR ---
RECEIVED PATIENT IN BED, PATIENT IS OBTUNDENT. VENT/TRACH DEPENDENT. VSS, AFEBRILE, NO DISTRESS NOTED PATIENT TURNED AND REPOSITIONED AT THIS TIME. SAFETY MEASURES IMPLEMENTED. CONTINUE TO MONITOR
[2019-05-16 20:00] VITALS: BP 153/77
[2019-05-16] MEDS: INSULIN GLARGINE, 100 UNIT/ML CARTRIDGE SQ SCH (21:06)
[2019-05-17] VITALS: BP 135/41
[2019-05-17] MEDS: BLOOD SUGAR DIAGNOSTIC 1 EACH STRIP IN SCH ×4 (00:11→17:12)
[2019-05-17] MEDS: METOCLOPRAMIDE HCL 10 MG/2 ML VIAL IV SCH ×4 (00:11→17:34)
[2019-05-17] MEDS: INSULIN REGULAR, HUMAN 100 UNIT/ML 3 ML VIAL SQ PRN ×2 (00:13→05:34)
[2019-05-17] MEDS: MEROPENEM 500 MG in IV NS 0.9% 50 ML IV SCH ×3 (00:16→16:16)
[2019-05-17] MEDS: ALBUTEROL FS 2.5 MG/0.5 ML VIAL.NEB NEB SCH ×6 (03:38→23:41)
[2019-05-17 04:00] VITALS: BP 154/74
[2019-05-17] MEDS: MIDODRINE HCL (5MG) 5 MG TABLET GT SCH ×3 (05:00→21:00)
[2019-05-17] MEDS: clonazePAM 0.5 MG TABLET GT SCH ×3 (05:33→21:00)
[2019-05-17] MEDS: BACLOFEN (10 MG) 10 MG TABLET GT SCH ×3 (05:33→21:00)
[2019-05-17 06:39] LABS: CALCIUM, SERUM 8.9 mg/dL (8.5-10.1); CREATININE 0.6 mg/dL (0.6-1.3); MAGNESIUM 1.9 mg/dL (1.8-2.4); PHOSPHORUS 2.6 mg/dL (2.5-4.9); POTASSIUM 3.7 mmol/L (3.5-5.1)
[2019-05-17] MEDS: SUCRALFATE 1 G/10 ML UDC GT SCH ×4 (07:30→21:10)
--- NOTE | 2019-05-17 07:47 | NUR ---
BIOINFORMATICIST NOTE RECEIVED PATIENT IN BED, OBTUNDED , ON TELE MONITOR SR HR 70, WITH TRACH TO VENT SETTING ORDERED , AMBU BAG AT HOB AT ALL TIME , WITH G TUBE TO LOW CONT SUCTION , WITH SMALL AMT OF GREENISH COLOR DRAINAGE NOTED , ON NPO STATUS AT THIS TIME, HAS IJ TPN AT 70 ML PERT HOUR , BED IN LOWEST AND LOCKED POSITION , WILL CONT TO MONITOR CLOSELY
[2019-05-17 08:00] VITALS: BP 144/77
[2019-05-17] MEDS: TRAMADOL HCL 50 MG TABLET GT SCH (09:00)
[2019-05-17] MEDS: ZINC SULFATE 220 MG CAPSULE GT SCH (09:00)
[2019-05-17] MEDS: MULTIVITAMINS,THERAGRAN 1 UDTAB TABLET GT SCH (09:00)
[2019-05-17] MEDS: DOCUSATE SODIUM LIQ 100 MG/10 ML UDC GT SCH (09:00)
[2019-05-17] MEDS: METOPROLOL TARTRATE 25 MG TABLET GT SCH ×2 (09:00→16:14)
[2019-05-17] MEDS: ASCORBIC ACID 500 MG TABLET GT SCH ×2 (09:00→16:14)
[2019-05-17] MEDS: ACIDOPHILUS/BULGARICUS 1 EACH TAB.CHEW GT SCH ×3 (09:00→16:14)
[2019-05-17] MEDS: FAMOTIDINE/PF INJ 20 MG/2 ML VIAL IV SCH ×2 (09:11→21:28)
[2019-05-17] MEDS: CLOTRIMAZOLE 1% 15 GM TUBE TP SCH ×2 (09:12→16:17)
[2019-05-17] MEDS: NYSTATIN/TRIAMCIN CREAM 15 GM TUBE TP SCH ×2 (09:12→16:17)
--- NOTE | 2019-05-17 10:30 | NUR ---
WRITING MANAGER NOTE BREATHING TX DONE ORDERED , RT AT BEDSIDE
[2019-05-17] MEDS: IPRATROPIUM NEB FS 0.5 MG/2.5 ML AMPUL.NEB NEB PRN ×2 (10:56→14:50)
[2019-05-17 12:00] VITALS: BP 128/62
--- NOTE | 2019-05-17 12:30 | NUR ---
CIRCULAR RIPSAW OPERATOR NOTE PER DR BRADY WITH POSSIBLE DISCHARGE TO SNF TODAY, POST FORM REMOVER NOTIFIED ,WILL F\U
[2019-05-17 12:32] LABS: CHOLESTEROL 111 mg/dL (<200); HDL CHOLESTEROL 33 mg/dL (40-60); LDL 53 mg/dL (0-99); TRIGLYCERIDES 178 mg/dL (30-150)
--- NOTE | 2019-05-17 15:01 | NUR ---
KUSUM DELCID NOTE SEEN BY ELIJAH DELCID OVERHEAD IRRIGATOR SURGICAL FOR DR BRADY ,NOTIFIED THAT SMALL AMT OF GREENISH DRAINAGE NOTED FROM SUCTION G TUBE AND FROM OLD STOMA VERY SCANT AMT OF DRAINAGE NOTED WITH REDNESS AROUND ,STATED THAT WILL CALL TO DR MATHEW IF OK TO START SMALL AMT OF G TUBE FEEDING TO SEE IF CAN TOLERATE G TUBE FEEDING, WILL F\U, STILL HOLD TO GIVE MEDS VIA G TUBE AT THIS TIME UNTIL FURTHER ORDERS Addendum: 05/17/19 at 1551 by MORGAN MIRAMONTES RN ELIJAH DELCID OVERHEAD IRRIGATOR SURGICAL GAVE TO HER PHONE NUMBER TO CALL ROSETTA MOJICA TO UPDATE PATIENT CONDITION, STATED THAT WILL CALL ROSETTA Addendum: 05/17/19 at 1639 by MORGAN MIRAMONTES RN PER ELIJAH DELCID TECHNICAL ADMINISTRATOR TILL HOLD TO GIVE MED VIA G TUBE
[2019-05-17] MEDS ORDERED: SUCR1ORA6 GT (15:38)
--- NOTE | 2019-05-17 15:52 | NUR ---
ENGINEERING OPERATOR NOTE SPOKE WITH BERENICE TRANSPORTATION DIRECTOR ABOUT DISHFACE, STILL LOOKING A PLACEMENT FOR PATIENT
[2019-05-17 16:00] VITALS: BP_SYST 134; BP_SYST 137; BP_DIAS 75
--- NOTE | 2019-05-17 18:51 | NUR ---
PHOTOENGRAVING PRINTER NOTE CONDOM CATH PLACED ORDERED ,KEEP CLEAN DRY, LOW INTERMITTED SUCTION STOPPED ORDERED , CONT WITH VENT SETTING ORDERED, STILL WITH TPN , AND HOLD OFF MEDS VIA G TUBE AWAITING FOR PLACEMENT FOR SNF , AMBULATORY CARE COORDINATOR AWARE
--- NOTE | 2019-05-17 19:53 | NUR ---
RT PATIENT RECEIVED TRACH ([employer]LEY #[id number] CUFFED) ON MECHANICAL VENT WITH SETTINGS PER MD ORDER. NO SOB NOTED AT THIS TIME. TRACH TUBE SECURE AND PATENT. CONCESSION ATTENDANT DONE. VENT PLUGGED INTO RED OUTLET. SPARE TRACH AND AMBU BAG AT BEDSIDE. BREATHING TX'S GIVEN ORDERED. NO ADVERSE REACTION. SUCTIONED SCANT AMOUNTS OF PALE YELLOW SECRETIONS. ALARMS ON AND AUDIBLE. WILL CONTINUE TO MONITOR. Addendum: 05/17/19 at 1953 by DIANA BENITEZ RT Amended: Links added.
[2019-05-17 20:00] VITALS: BP 138/76
--- NOTE | 2019-05-17 20:00 | NUR ---
LABORER PIPELINES INITIAL NOTE RECEIVED PATIENT IN BED, OBTUNDED , ON TELE MONITOR SB 55 HR , WITH TRACH TO VENT SETTING ORDERED , AMBU BAG AT HOB AT ALL TIME , S/P G TUBE TO LOW CONT SUCTION , WITH SMALL AMT OF GREENISH COLOR DRAINAGE NOTED DC PER AM RN , ON NPO STATUS AT THIS TIME, OKAY TO HOLD GT MEDS, HAS IJ TPN AT 70 ML PERT HOUR , BED IN LOWEST AND LOCKED POSITION , WILL CONT TO MONITOR CLOSELY
--- NOTE | 2019-05-17 21:11 | NUR ---
RN NOTE ALL GT MEDS HELD, GT NOT IN USE, PER MD.
[2019-05-18] VITALS: BP 128/72
[2019-05-18] MEDS: INSULIN GLARGINE, 100 UNIT/ML CARTRIDGE SQ SCH ×2 (00:01→23:19)
[2019-05-18] MEDS: BLOOD SUGAR DIAGNOSTIC 1 EACH STRIP IN SCH ×5 (00:02→23:18)
[2019-05-18] MEDS: MEROPENEM 500 MG in IV NS 0.9% 50 ML IV SCH ×3 (00:03→17:44)
[2019-05-18] MEDS: METOCLOPRAMIDE HCL 10 MG/2 ML VIAL IV SCH ×4 (00:04→17:43)
[2019-05-18] MEDS: ALBUTEROL FS 2.5 MG/0.5 ML VIAL.NEB NEB SCH ×5 (03:34→23:36)
[2019-05-18] MEDS: BACLOFEN (10 MG) 10 MG TABLET GT SCH ×3 (04:03→20:46)
[2019-05-18] MEDS: clonazePAM 0.5 MG TABLET GT SCH ×3 (04:03→20:46)
[2019-05-18] MEDS: MIDODRINE HCL (5MG) 5 MG TABLET GT SCH ×3 (04:03→20:46)
--- NOTE | 2019-05-18 04:04 | NUR ---
RN NOTE ALL GT MEDS HELD, GT NOT IN USE, PER MD.
[2019-05-18 04:34] VITALS: BP 149/75
--- NOTE | 2019-05-18 06:36 | NUR ---
RN CLOSING NOTE ENDORSED PT ON VENT, CONT' TPN @70ML/HR Q12HR, NEXT NEW BAG TO START AT 0800.
[2019-05-18] MEDS ORDERED: TPN BAG #9 IV PRN ×8 (07:00)
[2019-05-18 07:07] LABS: CALCIUM, SERUM 8.7 mg/dL (8.5-10.1); CREATININE 0.6 mg/dL (0.6-1.3); MAGNESIUM 1.8 mg/dL (1.8-2.4); PHOSPHORUS 2.4 mg/dL (2.5-4.9); POTASSIUM 3.1 mmol/L (3.5-5.1)
[2019-05-18] MEDS: SUCRALFATE 1 G/10 ML UDC GT SCH ×4 (07:30→21:32)
--- NOTE | 2019-05-18 07:30 | NUR ---
RN OPENING NOTES RECEIVED PATIENT IN BED RESTING COMFORTABLY. PATIENT OBTUNDED. NO FACIAL GRIMACING OR ACUTE DISTRESS AT THIS TIME. PATIENT ON TRACH, ABLE TO TOLERATE CURRENT VENT SETTINGS WELL. RESPIRATION EVEN AND UNLABORED. SUCTIONED NEEDED. SKIN IS DRY WARM TO TOUCH. , PATIENT NOTED WITH LEFT IJ IV ACCESS. NO S/S OF INFECTION OR INFILTRATION. PATIENT IS TOLERATING TPN ORDERS WELL. HOB ELEVATED AT ALL TIMES. PATIENT CONTINUES ON HOLD GT MEDS. ALL NEEDS ANTICIPATED. KEPT CLEAN AND DRY. CALL LIGHT WITHIN REACHED. BED LOCKED AND IN LOWEST POSITION. WILL CONT TO MONITOR CLOSELY.
[2019-05-18 08:00] VITALS: BP 134/78
[2019-05-18] MEDS: DOCUSATE SODIUM LIQ 100 MG/10 ML UDC GT SCH (08:44)
[2019-05-18] MEDS: METOPROLOL TARTRATE 25 MG TABLET GT SCH ×2 (08:44→16:07)
[2019-05-18] MEDS: ACIDOPHILUS/BULGARICUS 1 EACH TAB.CHEW GT SCH ×3 (08:44→16:07)
[2019-05-18] MEDS: ASCORBIC ACID 500 MG TABLET GT SCH ×2 (08:45→16:07)
[2019-05-18] MEDS: MULTIVITAMINS,THERAGRAN 1 UDTAB TABLET GT SCH (08:45)
[2019-05-18] MEDS: ZINC SULFATE 220 MG CAPSULE GT SCH (08:45)
[2019-05-18] MEDS: TRAMADOL HCL 50 MG TABLET GT SCH (08:45)
[2019-05-18] MEDS: FAMOTIDINE/PF INJ 20 MG/2 ML VIAL IV SCH ×2 (08:48→21:32)
[2019-05-18] MEDS: NYSTATIN/TRIAMCIN CREAM 15 GM TUBE TP SCH ×2 (08:54→17:44)
[2019-05-18] MEDS: CLOTRIMAZOLE 1% 15 GM TUBE TP SCH ×2 (08:55→17:48)
[2019-05-18 12:00] VITALS: BP 128/68
[2019-05-18] MEDS: POTASSIUM CL. PREMIX PERIPHER. 50 ML IV SCH ×2 (12:08→13:22)
[2019-05-18] MEDS ORDERED: TPN BAG #10 IV PRN ×7 (13:00)
[2019-05-18] MEDS ORDERED: TPN BAG #11 IV PRN ×9 (14:30)
[2019-05-18 16:00] VITALS: BP 133/67
[2019-05-18] MEDS: CHLORHEXIDINE GLUCONATE 15 ML UDC MM SCH (17:44)
--- NOTE | 2019-05-18 18:52 | NUR ---
RN CLOSING NOTES PATIENT CONTINUES TO REMAIN IN STABLE CONDITION. PROVIDED COMFORT AND SAFETY. NO FACIAL GRIMACING OR ACUTE DISTRESS AT THIS TIME. RESPIRATION EVEN AND UNLABORED. SUCTIONED NEEDED. SKIN IS DRY WARM TO TOUCH. PATIENT NOTED WITH LEFT IJ IV ACCESS. NO S/S OF INFECTION OR INFILTRATION. PATIENT IS TOLERATING TPN ORDERS WELL. HOB ELEVATED AT ALL TIMES. PATIENT CONTINUES ON HOLD GT MEDS. ALL NEEDS ANTICIPATED. KEPT CLEAN AND DRY. CALL LIGHT WITHIN REACHED. BED LOCKED AND IN LOWEST POSITION. WILL CONT TO MONITOR CLOSELY. ENDORSED TO PM NURSE FOR KEVIN.
--- NOTE | 2019-05-18 19:24 | NUR ---
RT PT RECEIVED TRACHED ON [facility] VENT ON CHARTED SETTINGS. NO SIGNS OF RESP DISTRESS NOTED. AIRWAY PATENT AND SECURED. PT SUCTIONED. HARDWARE TEST ENGINEER DONE. PT GIVEN HHN TX. NO ADVERSE REACTION. ALARMS ARE SET AND AUDIBLE. AMBUBAG AND BACK UP TRACH AT BEDSIDE. VENT CONNECTED TO RED OUTLET. WILL CONT TO MONITOR. Addendum: 05/18/19 at 2004 by JOY HICKEY RT Amended: Links added.
[2019-05-18 20:00] VITALS: BP 148/79
--- NOTE | 2019-05-18 20:01 | NUR ---
ELEVATOR REPAIR MECHANIC INITIAL NOTE RECEIVED PATIENT IN BED, OBTUNDED , ON TELE MONITOR SB 60'S HR , WITH TRACH TO VENT SETTING ORDERED , AMBU BAG AT HOB AT ALL TIME , S/P G TUBE TO LOW CONT SUCTION , ON NPO STATUS AT THIS TIME, OKAY TO HOLD GT MEDS, HAS IJ TPN AT 70 ML PERT HOUR , BED IN LOWEST AND LOCKED POSITION , WILL CONT TO MONITOR CLOSELY
--- NOTE | 2019-05-18 20:47 | NUR ---
RN NOTE ALL GT MEDS HELD, GT NOT IN USE, PER MD.
[2019-05-19] VITALS (9 sets, daily range): BP systolic 111–131; BP diastolic 44–75
[2019-05-19] MEDS: MEROPENEM 500 MG in IV NS 0.9% 50 ML IV SCH ×3 (00:33→17:25)
[2019-05-19] MEDS: METOCLOPRAMIDE HCL 10 MG/2 ML VIAL IV SCH ×4 (00:33→17:25)
[2019-05-19] MEDS: ALBUTEROL FS 2.5 MG/0.5 ML VIAL.NEB NEB SCH ×5 (03:40→19:53)
[2019-05-19] MEDS: BACLOFEN (10 MG) 10 MG TABLET GT SCH ×3 (05:00→20:41)
[2019-05-19] MEDS: clonazePAM 0.5 MG TABLET GT SCH ×3 (05:00→20:37)
[2019-05-19] MEDS: MIDODRINE HCL (5MG) 5 MG TABLET GT SCH ×3 (05:00→20:41)
--- NOTE | 2019-05-19 05:42 | NUR ---
RN NOTE ALL GT MEDS HELD, GT NOT IN USE, PER MD.
[2019-05-19] MEDS: BLOOD SUGAR DIAGNOSTIC 1 EACH STRIP IN SCH ×3 (05:59→17:25)
--- NOTE | 2019-05-19 06:40 | NUR ---
COMPENSATION COORDINATOR NOTE ENDORSED PT FOR KEVIN, ON TPN Q12H DUE CHANGE, NO CHANGE IN THE PLAN OF CARE.
--- NOTE | 2019-05-19 07:20 | NUR ---
SURVEILLANCE ANALYST OPENING NOTE RECEIVED PATIENT IN BED, NON VERBAL,OPEN EYES SPONTANEOUSLY. ON TRACH TO VENT SETTING TOLERATING ORDERED , AMBU BAG AT HOB .ON TELE MONITOR SR HR 72. ON NPO STATUS AT THIS TIME. HAS IJ TPN AT 70 ML PERT HOUR .BED IN LOWEST AND LOCKED POSITION .SIDE RAILSX2.BED ALARM ON.WILL CONT TO MONITOR .
[2019-05-19 07:30] LABS: CALCIUM, SERUM 9.1 mg/dL (8.5-10.1); CREATININE 0.5 mg/dL (0.6-1.3); POTASSIUM 3.8 mmol/L (3.5-5.1)
[2019-05-19] MEDS: IPRATROPIUM NEB FS 0.5 MG/2.5 ML AMPUL.NEB NEB PRN (08:02)
[2019-05-19] MEDS: ZINC SULFATE 220 MG CAPSULE GT SCH (08:22)
[2019-05-19] MEDS: SUCRALFATE 1 G/10 ML UDC GT SCH ×4 (08:22→22:00)
[2019-05-19] MEDS: ASCORBIC ACID 500 MG TABLET GT SCH ×2 (08:22→16:52)
[2019-05-19] MEDS: CHLORHEXIDINE GLUCONATE 15 ML UDC MM SCH ×2 (08:22→17:25)
[2019-05-19] MEDS: DOCUSATE SODIUM LIQ 100 MG/10 ML UDC GT SCH (08:22)
[2019-05-19] MEDS: FAMOTIDINE/PF INJ 20 MG/2 ML VIAL IV SCH ×2 (08:22→22:42)
[2019-05-19] MEDS: METOPROLOL TARTRATE 25 MG TABLET GT SCH ×2 (08:23→16:52)
[2019-05-19] MEDS: MULTIVITAMINS,THERAGRAN 1 UDTAB TABLET GT SCH (08:24)
[2019-05-19] MEDS: ACIDOPHILUS/BULGARICUS 1 EACH TAB.CHEW GT SCH ×3 (08:24→16:51)
[2019-05-19] MEDS: TRAMADOL HCL 50 MG TABLET GT SCH (08:24)
[2019-05-19] MEDS: NYSTATIN/TRIAMCIN CREAM 15 GM TUBE TP SCH ×2 (08:27→17:26)
[2019-05-19 10:40] LABS: MAGNESIUM 1.9 mg/dL (1.8-2.4); PHOSPHORUS 2.7 mg/dL (2.5-4.9)
[2019-05-19] MEDS ORDERED: TPN BAG #12 IV PRN ×7 (11:00)
[2019-05-19] MEDS ORDERED: TPN BAG #13 IV PRN ×9 (13:00)
--- NOTE | 2019-05-19 16:15 | NUR ---
HELP DESK ANALYST NOTE SEEN BY SUPERVISOR WHIPPED TOPPING ANGEL,UPDATED ABOUT PATIENT CONDITION.GOT NEW ORDER TO HOLD ALL GT MEDS AND NOTHING TO GT EVEN WHILE D/C TO SNF UNTIL OLD GT SITE CLOSE.STARTED ON LOW INTERMITTENT SUCTION.FAMILY WAS AT BEDSIDE.ANSWERED ALL THE QUESTIONS BY SUPERVISOR WHIPPED TOPPING.WILL CONTINUE TO MONITOR.
[2019-05-19] MEDS: CLOTRIMAZOLE 1% 15 GM TUBE TP SCH ×2 (17:24→17:27)
--- NOTE | 2019-05-19 18:55 | NUR ---
CATEGORY ANALYST CLOSING NOTE PATIENT IN BED, NON VERBAL,OPEN EYES SPONTANEOUSLY. ON TRACH TO VENT SETTING TOLERATING ORDERED , AMBU BAG AT HOB .ON TELE MONITOR SR HR 78. ON NPO STATUS AT THIS TIME. HAS IJ TPN AT 70 ML PERT HOUR .ON LOW INTERMITTENT GT SUCTION.BED IN LOWEST AND LOCKED POSITION .SIDE RAILSX2.BED ALARM ON.WILL ENDORSE TO PM NURSE FOR KEVIN.
[2019-05-20] VITALS: BP 132/66
[2019-05-20] MEDS: BLOOD SUGAR DIAGNOSTIC 1 EACH STRIP IN SCH ×4 (00:11→17:37)
[2019-05-20] MEDS: INSULIN GLARGINE, 100 UNIT/ML CARTRIDGE SQ SCH ×2 (00:13→22:45)
[2019-05-20] MEDS: ALBUTEROL FS 2.5 MG/0.5 ML VIAL.NEB NEB SCH ×7 (00:13→23:40)
[2019-05-20] MEDS: METOCLOPRAMIDE HCL 10 MG/2 ML VIAL IV SCH ×4 (00:25→17:37)
[2019-05-20] MEDS: MEROPENEM 500 MG in IV NS 0.9% 50 ML IV SCH ×3 (00:25→16:29)
[2019-05-20 04:00] VITALS: BP 123/59
[2019-05-20] MEDS: clonazePAM 0.5 MG TABLET GT SCH ×3 (05:00→21:00)
[2019-05-20] MEDS: MIDODRINE HCL (5MG) 5 MG TABLET GT SCH ×3 (05:00→21:00)
[2019-05-20] MEDS: BACLOFEN (10 MG) 10 MG TABLET GT SCH ×3 (05:00→21:00)
[2019-05-20 06:51] LABS: CALCIUM, SERUM 9.1 mg/dL (8.5-10.1); CREATININE 0.6 mg/dL (0.6-1.3); PHOSPHORUS 2.7 mg/dL (2.5-4.9); POTASSIUM 3.5 mmol/L (3.5-5.1)
[2019-05-20] MEDS: SUCRALFATE 1 G/10 ML UDC GT SCH ×4 (07:30→21:37)
[2019-05-20 08:00] VITALS: BP 125/60
[2019-05-20] MEDS: ACIDOPHILUS/BULGARICUS 1 EACH TAB.CHEW GT SCH ×3 (08:45→15:57)
[2019-05-20] MEDS: METOPROLOL TARTRATE 25 MG TABLET GT SCH ×2 (08:45→15:57)
[2019-05-20] MEDS: DOCUSATE SODIUM LIQ 100 MG/10 ML UDC GT SCH (08:45)
[2019-05-20] MEDS: ASCORBIC ACID 500 MG TABLET GT SCH ×2 (08:46→15:57)
[2019-05-20] MEDS: TRAMADOL HCL 50 MG TABLET GT SCH (08:46)
[2019-05-20] MEDS: ZINC SULFATE 220 MG CAPSULE GT SCH (08:46)
[2019-05-20] MEDS: MULTIVITAMINS,THERAGRAN 1 UDTAB TABLET GT SCH (08:46)
[2019-05-20] MEDS: FAMOTIDINE/PF INJ 20 MG/2 ML VIAL IV SCH ×2 (08:51→21:37)
[2019-05-20] MEDS: CHLORHEXIDINE GLUCONATE 15 ML UDC MM SCH ×2 (08:51→16:28)
[2019-05-20] MEDS: Z GUARD REMEDY 2 OZ OINT TP PRN (08:52)
[2019-05-20] MEDS: NYSTATIN/TRIAMCIN CREAM 15 GM TUBE TP SCH ×2 (08:52→16:31)
[2019-05-20] MEDS: CLOTRIMAZOLE 1% 15 GM TUBE TP SCH ×2 (08:52→16:31)
[2019-05-20] MEDS: INSULIN REGULAR, HUMAN 100 UNIT/ML 3 ML VIAL SQ PRN (11:29)
[2019-05-20 12:00] VITALS: BP 96/52
[2019-05-20] MEDS ORDERED: TPN BAG #15 IV PRN ×9 (13:00)
[2019-05-20] MEDS ORDERED: TPN BAG #14 IV PRN ×14 (13:00)
--- NOTE | 2019-05-20 14:47 | NUR ---
RN NOTES: No significant changes noted w/in shift. No respiratory distress while on MV via trach, sating 100%. SR/SB on telemonitor. IV line access L IJ TLC kept patent & intact w/ TPN x 70 cc/hr infusing well. GT connected to LIS as ordered, kept NPO including meds per order. Condom catheter still in place. Pt turned & repositioned q2H & PRN. Safety precautions kept in place at all times w/ bed in lowest & locked pos. Will endorse to Tiara DELCID for KEVIN.
--- NOTE | 2019-05-20 15:00 | NUR ---
RECEIVED REPORT FROM MAUREEN DELCID. OLD GT SITE PRESSURE SITE INTACT, NO BLEEDING NOTED. NO GT MEDS TO BE GIVEN, WILL ENDORSE TO CRUISE AGENT.
[2019-05-20 16:00] VITALS: BP_SYST 123; BP_SYST 93; BP_DIAS 62; BP_DIAS 79
[2019-05-20 20:00] VITALS: BP 118/64
--- NOTE | 2019-05-20 21:38 | NUR ---
RN NOTE PER CAYDEN Albert. DIRECTOR OF ARCHITECTURE DO NOT ADMINISTER G-TUBE MEDS
[2019-05-21] VITALS (8 sets, daily range): BP systolic 98–159; BP diastolic 49–86
[2019-05-21] MEDS: BLOOD SUGAR DIAGNOSTIC 1 EACH STRIP IN SCH ×4 (00:07→17:09)
[2019-05-21] MEDS: METOCLOPRAMIDE HCL 10 MG/2 ML VIAL IV SCH ×4 (00:46→17:53)
[2019-05-21] MEDS: MEROPENEM 500 MG in IV NS 0.9% 50 ML IV SCH ×3 (00:46→16:39)
[2019-05-21] MEDS: ALBUTEROL FS 2.5 MG/0.5 ML VIAL.NEB NEB SCH ×6 (03:26→23:36)
[2019-05-21] MEDS: BACLOFEN (10 MG) 10 MG TABLET GT SCH ×3 (05:00→20:24)
[2019-05-21] MEDS: MIDODRINE HCL (5MG) 5 MG TABLET GT SCH ×3 (05:00→20:24)
[2019-05-21] MEDS: clonazePAM 0.5 MG TABLET GT SCH ×3 (05:00→20:24)
[2019-05-21 07:02] LABS: CALCIUM, SERUM 8.8 mg/dL (8.5-10.1); CREATININE 0.6 mg/dL (0.6-1.3); PHOSPHORUS 2.7 mg/dL (2.5-4.9); POTASSIUM 3.8 mmol/L (3.5-5.1)
--- NOTE | 2019-05-21 07:20 | NUR ---
RN OPENING NOTES RECEIVED BEDSIDE REPORT, PATIENT IN BED OBTUNDED, NON VERBAL. ON TELE MONITOR, SR/SB. PATIENT APPEARS TO BE CONTRACTED. HAS LEFT IJ WITH TPN BAG RUNNING AT 70ML/HR. PER GI DOCTOR, HOLD GT MEDS, IV MEDS TO BE GIVEN ONLY. NO SIGNS OF ANY PAIN OR SOB. BED LOCKED AND IN LOWEST POSITION. WILL CONTINUE TO MONITOR
[2019-05-21] MEDS: SUCRALFATE 1 G/10 ML UDC GT SCH ×4 (07:30→21:18)
--- NOTE | 2019-05-21 08:15 | NUR ---
RT PATIENT RECEIVED TRACH ([employer]LEY #[id number] CUFFED) ON MECHANICAL VENT WITH SETTINGS PER MD ORDER. NO SOB NOTED AT THIS TIME. TRACH TUBE SECURE AND PATENT. FORESTRY PILOT DONE. VENT PLUGGED INTO RED OUTLET. SPARE TRACH AND AMBU BAG AT BEDSIDE. BREATHING TX'S GIVEN ORDERED. NO ADVERSE REACTION. SUCTIONED MODERATE AMOUNTS OF PALE YELLOW SECRETIONS. ALARMS ON AND AUDIBLE. WILL CONTINUE TO MONITOR. Addendum: 05/21/19 at 0815 by DIANA BENITEZ RT Amended: Links added.
[2019-05-21] MEDS: METOPROLOL TARTRATE 25 MG TABLET GT SCH ×2 (09:00→16:16)
[2019-05-21] MEDS: ZINC SULFATE 220 MG CAPSULE GT SCH (09:00)
[2019-05-21] MEDS: ACIDOPHILUS/BULGARICUS 1 EACH TAB.CHEW GT SCH ×3 (09:00→16:16)
[2019-05-21] MEDS: TRAMADOL HCL 50 MG TABLET GT SCH (09:00)
[2019-05-21] MEDS: MULTIVITAMINS,THERAGRAN 1 UDTAB TABLET GT SCH (09:00)
[2019-05-21] MEDS: DOCUSATE SODIUM LIQ 100 MG/10 ML UDC GT SCH (09:00)
[2019-05-21] MEDS: ASCORBIC ACID 500 MG TABLET GT SCH ×2 (09:00→16:17)
[2019-05-21] MEDS: FAMOTIDINE/PF INJ 20 MG/2 ML VIAL IV SCH ×2 (09:07→21:17)
[2019-05-21] MEDS: CHLORHEXIDINE GLUCONATE 15 ML UDC MM SCH ×2 (09:07→16:39)
[2019-05-21] MEDS: NYSTATIN/TRIAMCIN CREAM 15 GM TUBE TP SCH ×2 (09:09→16:43)
[2019-05-21] MEDS: CLOTRIMAZOLE 1% 15 GM TUBE TP SCH ×2 (09:09→16:43)
--- NOTE | 2019-05-21 19:03 | NUR ---
RN CLOSING NOTES PATIENT IN BED OBTUNDED. NO CHANGES THROUGHOUT THE SHIFT. NO SIGNS OF ANY PAIN OR SOB. TPN RUNNING AT THIS TIME AT LEFT IJ. HOLD GT MEDS PER GI DOCTOR. ALL IV MEDS ONLY. WILL ENDORSE TO NOC SHIFT FOR KEVIN
--- NOTE | 2019-05-21 19:10 | NUR ---
LIQUID FLAVOR COMPOUNDER NOTE RECEIVED PT IN STABLE CONDITION, OBTUNDED. PT ON A VENT TOLERATING SETTINGS WELL. TELE MONITOR: READING SR 73. STILL NPO, NO USE OF GTUBE. INFUSING TPN THROUGH L IJ, TOLERATING WELL. NO SIGNS OF ACUTE DISTRESS, NO INDICATIONS OF PAIN. ALL CURRENT NEEDS MET. BED LOW, LOCKED, ISOLATIONS PRECAUTIONS IN PLACE, UPPER RAILS UP, PT TO BE REPOSITIONED PER UNIT PROTOCOL, AND CALL LIGHT WITHIN REACH. WILL CONT TO MONITOR.
[2019-05-21] MEDS: INSULIN GLARGINE, 100 UNIT/ML CARTRIDGE SQ SCH (21:30)
[2019-05-21] MEDS ORDERED: TPN BAG #16 IV PRN ×7 (23:00)
[2019-05-22] VITALS: BP 153/91
[2019-05-22] MEDS: BLOOD SUGAR DIAGNOSTIC 1 EACH STRIP IN SCH ×4 (00:01→17:29)
[2019-05-22] MEDS: METOCLOPRAMIDE HCL 10 MG/2 ML VIAL IV SCH ×4 (00:01→17:37)
[2019-05-22] MEDS: ALBUTEROL FS 2.5 MG/0.5 ML VIAL.NEB NEB SCH ×5 (03:12→19:33)
[2019-05-22 04:00] VITALS: BP 156/65
[2019-05-22] MEDS: ACETAMINOPHEN 650 MG/SUPP.RECT RC PRN (04:17)
--- NOTE | 2019-05-22 04:17 | NUR ---
CLOUD SYSTEMS ARCHITECT NOTE PT NOTED WITH LOW GRADE FEVER 99.4 AND ELEVATED HR OF 110. TYLENOL SUPPOSITORY GIVEN AND COOLING MEASURES STARTED. WILL CONT. TO MONITOR.
[2019-05-22] MEDS: clonazePAM 0.5 MG TABLET GT SCH ×3 (04:35→21:00)
[2019-05-22] MEDS: MIDODRINE HCL (5MG) 5 MG TABLET GT SCH ×3 (04:35→21:00)
[2019-05-22] MEDS: BACLOFEN (10 MG) 10 MG TABLET GT SCH ×3 (04:35→21:00)
[2019-05-22] MEDS: MORPHINE SULFATE INJ 2 MG/ML DISP.SYRIN IV PRN (04:52)
--- NOTE | 2019-05-22 04:52 | NUR ---
GRAVE DIGGER NOTE PT NOTED WITH FACIAL GRIMACING, MORPHINE 2 MG IV GIVEN. WILL CONT. TO MONITOR.
--- NOTE | 2019-05-22 06:12 | NUR ---
RT NOTE: RECEIVED TRACH PT ON ORDERED NOTED VENT SETTINGS. NO RESPIRATORY DISTRESS NOTED. TRACH CHECKED SECURE AND PATENT. SXD AND LAVAGED PT NEEDED.TXS GIVEN ORDERED WITH NO ADVERSE REACTIONS NOTED. TRACH CARE DONE. SPARE TRACH AND PAUL BAG @ BEDSIDE. ALARMS CHECKED ON AND AUDIBLE. Addendum: 05/22/19 at 0614 by ANDRADE LÓPEZ RT Amended: Links added.
--- NOTE | 2019-05-22 06:27 | NUR ---
MANAGER HEAVY EQUIPMENT NOTE PT IN STABLE CONDITION, OBTUNDED. PT ON A VENT TOLERATING SETTINGS WELL. TELE MONITOR: READING SR 82. STILL NPO, NO USE OF GTUBE. INFUSING TPN THROUGH L IJ, TOLERATING WELL. NO SIGNS OF ACUTE DISTRESS, NO INDICATIONS OF PAIN. ALL CURRENT NEEDS MET. BED LOW, LOCKED, ISOLATION PRECAUTIONS IN PLACE, UPPER RAILS UP, PT TO BE REPOSITIONED PER UNIT PROTOCOL, AND CALL LIGHT WITHIN REACH. WILL CONT TO MONITOR AND ENDORSE TO NEXT SHIFT FOR KEVIN.
[2019-05-22 07:08] LABS: CALCIUM, SERUM 9.3 mg/dL (8.5-10.1); CREATININE 0.8 mg/dL (0.6-1.3); MAGNESIUM 2.1 mg/dL (1.8-2.4); PHOSPHORUS 2.8 mg/dL (2.5-4.9)
[2019-05-22] MEDS: SUCRALFATE 1 G/10 ML UDC GT SCH ×4 (07:30→21:54)
--- NOTE | 2019-05-22 07:50 | NUR ---
CLUB CAR ATTENDANT NOTE PATIENT IN BED,OBTUNDED. PT WITH TRACH TO VENT SETTING , AMBU BAG AT HOB AT ALL TIME,TOLERATING SETTINGS WELL. TELE MONITOR: READING SR 92. STILL NPO, NO USE OF GTUBE. INFUSING TPN THROUGH L IJ, TOLERATING WELL. NO SIGNS OF ACUTE DISTRESS, NO INDICATIONS OF PAIN. ALL CURRENT NEEDS MET. BED LOW, LOCKED, ISOLATION PRECAUTIONS IN PLACE, UPPER RAILS UP AND CALL LIGHT WITHIN REACH. WILL CONT TO MONITOR , ON TPN ORDERED BY IJ TLC
[2019-05-22] MEDS: IPRATROPIUM NEB FS 0.5 MG/2.5 ML AMPUL.NEB NEB PRN (07:53)
[2019-05-22 08:00] VITALS: BP 129/83
[2019-05-22] MEDS: DOCUSATE SODIUM LIQ 100 MG/10 ML UDC GT SCH (08:07)
[2019-05-22] MEDS: FAMOTIDINE/PF INJ 20 MG/2 ML VIAL IV SCH ×2 (08:10→21:53)
[2019-05-22] MEDS: CHLORHEXIDINE GLUCONATE 15 ML UDC MM SCH ×2 (08:10→16:41)
[2019-05-22] MEDS: MEROPENEM 500 MG in IV NS 0.9% 50 ML IV SCH ×4 (08:11→16:41)
[2019-05-22] MEDS: NYSTATIN/TRIAMCIN CREAM 15 GM TUBE TP SCH ×2 (08:11→16:41)
[2019-05-22] MEDS: CLOTRIMAZOLE 1% 15 GM TUBE TP SCH ×2 (08:12→16:42)
[2019-05-22] MEDS: MULTIVITAMINS,THERAGRAN 1 UDTAB TABLET GT SCH (08:13)
[2019-05-22] MEDS: ZINC SULFATE 220 MG CAPSULE GT SCH (08:13)
[2019-05-22] MEDS: ASCORBIC ACID 500 MG TABLET GT SCH ×2 (08:13→16:39)
[2019-05-22] MEDS: TRAMADOL HCL 50 MG TABLET GT SCH (08:13)
[2019-05-22] MEDS: METOPROLOL TARTRATE 25 MG TABLET GT SCH ×2 (08:14→16:38)
[2019-05-22] MEDS: ACIDOPHILUS/BULGARICUS 1 EACH TAB.CHEW GT SCH ×3 (08:14→16:38)
--- NOTE | 2019-05-22 11:35 | NUR ---
HOUSEKEEPER NOTE SEEN BY ELIJAH RN MANAGER PAYMENT SURGICAL AT BEDSIDE, EXAMINED PATIENT ,NOTIFIED HAS DARK BROWN DRAINAGE FROM OLD G TUBE STOMA , WITH ORDER TO CONT CARE SAME TX WILL F\U
[2019-05-22 12:00] VITALS: BP 111/63
--- NOTE | 2019-05-22 13:00 | NUR ---
telegraphic typewriter operator chief note condom cath placed as ordered ,will cont to monitor closely
[2019-05-22] MEDS ORDERED: TPN BAG #17 IV PRN ×9 (14:30)
[2019-05-22] MEDS ORDERED: TPN BAG #18 IV PRN ×7 (15:00)
[2019-05-22] MEDS: FAT EMULSION 20% 500 ML in PREMIX 1 EA IV SCH (15:19)
--- NOTE | 2019-05-22 15:39 | NUR ---
telephone surveyor note round made , all needs attended , will cont to monitor, keep clean dry trach suction done, call light within reach
[2019-05-22 16:00] VITALS: BP 117/64
--- NOTE | 2019-05-22 17:22 | NUR ---
RT Patient received trach'd and on vent. Patient stable. No sob or respiratory distress noted t/o shift. Addendum: 05/22/19 at 1724 by JESSICA ESTRELLA RT Amended: Links added.
--- NOTE | 2019-05-22 18:41 | NUR ---
PUBLIC HEALTH DIRECTOR NOTE ON LIPIDS AND TPN AT THIS TIME , ALL NEEDS ATTENDED BED IN LOWEST AND LOCKED POSITION, NO SOB NOTED, WITH TRACH TO VENT SETTING ORDERED , WILL CONT TO MONITOR CLOSELY, WITH CONDOM CATH WITH YELLOW COLOR URINE ,
[2019-05-22 20:00] VITALS: BP 132/75
--- NOTE | 2019-05-22 20:05 | NUR ---
FILM CREW MEMBER OPENING NOTES RECEIVED REPORT FROM MORGAN DELCID. PATIENT A/A/O X1 TO NAME, NON-VERBAL & UNABLE TO MAKE NEEDS KNOWN. RESPONSIVE TO VERBAL & TACTILE STIMULI. BREATHING EVEN & UNLABORED W/ TRACH INTACT & TOLERATING VENT SETTINGS AC 19, TV 550, FIO2 30%, PEEP 5. NO S/S OF RESPIRATORY DISTRESS NOTED. ON TELE W/ SINUS RHYTHM & 1ST DEGREE AVB, HR 70S. LEFT IJ INTACT & PATENT W/ DRESSING CDI W/ TPN INFUSING WELL @ 70 ML/HR & LIPIDS @ 20 ML/HR. G-TUBE W/ NO S/S OF INFECTION NOTED, CLAMPED @ THIS TIME. CONDOM CATH IN PLACE & CATH DRAINING YELLOW URINE. NO S/S OF PAIN OR DISCOMFORT @ THIS TIME. SAFETY MEASURES IN PLACE W/ SIDE RAILS UP & BED ALARM ON. WILL CONTINUE TO MONITOR.
[2019-05-22] MEDS: INSULIN GLARGINE, 100 UNIT/ML CARTRIDGE SQ SCH (21:55)
[2019-05-23] VITALS: BP 123/69
[2019-05-23] MEDS: ALBUTEROL FS 2.5 MG/0.5 ML VIAL.NEB NEB SCH ×7 (00:14→23:20)
[2019-05-23] MEDS: BLOOD SUGAR DIAGNOSTIC 1 EACH STRIP IN SCH ×5 (00:54→23:52)
[2019-05-23] MEDS: INSULIN REGULAR, HUMAN 100 UNIT/ML 3 ML VIAL SQ PRN ×3 (00:55→23:52)
[2019-05-23] MEDS: METOCLOPRAMIDE HCL 10 MG/2 ML VIAL IV SCH ×5 (00:57→23:56)
[2019-05-23 04:00] VITALS: BP 140/76
[2019-05-23] MEDS: BACLOFEN (10 MG) 10 MG TABLET GT SCH ×3 (05:00→21:00)
[2019-05-23] MEDS: clonazePAM 0.5 MG TABLET GT SCH ×3 (05:00→21:00)
[2019-05-23] MEDS: MIDODRINE HCL (5MG) 5 MG TABLET GT SCH ×3 (05:00→21:00)
[2019-05-23] MEDS: SUCRALFATE 1 G/10 ML UDC GT SCH ×4 (07:30→21:28)
--- NOTE | 2019-05-23 07:30 | NUR ---
AUTOMOTIVE MACHINIST APPRENTICE OPENING NOTES RECEIVED REPORT FROM NIGHTSHIFT RN. PATIENT A/A/O X1 TO NAME, NON-VERBAL & UNABLE TO MAKE NEEDS KNOWN. RESPONSIVE TO VERBAL & TACTILE STIMULI. BREATHING EVEN & UNLABORED W/ TRACH INTACT & TOLERATING VENT SETTINGS AC 19, TV 550, FIO2 30%, PEEP 5. NO S/S OF RESPIRATORY DISTRESS NOTED. ON TELE W/ SINUS RHYTHM & 1ST DEGREE AVB, HR 70S. LEFT IJ INTACT & PATENT W/ DRESSING CDI W/ TPN INFUSING WELL @ 70 ML/HR & LIPIDS @ 20 ML/HR. G-TUBE W/ NO S/S OF INFECTION NOTED, CLAMPED @ THIS TIME. NO S/S OF PAIN OR DISCOMFORT @ THIS TIME. SAFETY MEASURES IN PLACE W/ SIDE RAILS UP & BED ALARM ON. WILL CONTINUE TO MONITOR.
[2019-05-23 07:57] LABS: CALCIUM, SERUM 9.1 mg/dL (8.5-10.1); CREATININE 0.7 mg/dL (0.6-1.3); MAGNESIUM 1.9 mg/dL (1.8-2.4); POTASSIUM 3.6 mmol/L (3.5-5.1)
[2019-05-23 08:00] VITALS: BP 116/66
[2019-05-23] MEDS: MULTIVITAMINS,THERAGRAN 1 UDTAB TABLET GT SCH (09:00)
[2019-05-23] MEDS: METOPROLOL TARTRATE 25 MG TABLET GT SCH ×2 (09:00→16:22)
[2019-05-23] MEDS: ZINC SULFATE 220 MG CAPSULE GT SCH (09:00)
[2019-05-23] MEDS: DOCUSATE SODIUM LIQ 100 MG/10 ML UDC GT SCH (09:00)
[2019-05-23] MEDS: ASCORBIC ACID 500 MG TABLET GT SCH ×2 (09:00→16:23)
[2019-05-23] MEDS: TRAMADOL HCL 50 MG TABLET GT SCH (09:00)
[2019-05-23] MEDS: ACIDOPHILUS/BULGARICUS 1 EACH TAB.CHEW GT SCH ×3 (09:00→16:22)
[2019-05-23] MEDS: FAMOTIDINE/PF INJ 20 MG/2 ML VIAL IV SCH ×2 (10:30→21:30)
[2019-05-23] MEDS: CHLORHEXIDINE GLUCONATE 15 ML UDC MM SCH ×2 (10:30→17:35)
[2019-05-23] MEDS: CLOTRIMAZOLE 1% 15 GM TUBE TP SCH ×2 (10:32→17:35)
[2019-05-23] MEDS: NYSTATIN/TRIAMCIN CREAM 15 GM TUBE TP SCH ×2 (10:32→17:35)
[2019-05-23 12:00] VITALS: BP 124/65
--- NOTE | 2019-05-23 12:32 | NUR ---
PER DR. DAVIS HOLD PT MEDS UNTIL OLD G-TUBE SITE STOPS LEAKING.
[2019-05-23] MEDS: MORPHINE SULFATE INJ 2 MG/ML DISP.SYRIN IV PRN (15:10)
[2019-05-23 16:00] VITALS: BP 142/62
--- NOTE | 2019-05-23 19:29 | NUR ---
KENNEL HAND CLOSING NOTES GAVE REPORT TO NIGHTSHIFT RN. PATIENT A/A/O X1 TO NAME, NON-VERBAL & UNABLE TO MAKE NEEDS KNOWN. RESPONSIVE TO VERBAL & TACTILE STIMULI. BREATHING EVEN & UNLABORED W/ TRACH INTACT & TOLERATING VENT SETTINGS AC 19, TV 550, FIO2 30%, PEEP 5. NO S/S OF RESPIRATORY DISTRESS NOTED. ON TELE W/ SINUS RHYTHM & 1ST DEGREE AVB, HR 70S. LEFT IJ INTACT & PATENT W/ DRESSING CDI W/ TPN INFUSING WELL @ 70 ML/HR & LIPIDS @ 20 ML/HR. G-TUBE W/ NO S/S OF INFECTION NOTED, CLAMPED @ THIS TIME. NO S/S OF PAIN OR DISCOMFORT @ THIS TIME. SAFETY MEASURES IN PLACE W/ SIDE RAILS UP & BED ALARM ON. WILL ENDORSE CONTINUITY OF CARE TO MANAGER EQUIPMENT RN.
[2019-05-23] MEDS: IPRATROPIUM NEB FS 0.5 MG/2.5 ML AMPUL.NEB NEB PRN (19:41)
--- NOTE | 2019-05-23 19:42 | NUR ---
PATIENT RECEIVED TRACH SHILEY #6XLT CUFFED ON MECHANICAL VENT WITH NOTED SETTINGS. PT IS NON VERBAL, RESPONDS TO STIMULI WHEN SUCTION. AUTOMOTIVE PORTER DONE. VENT PLUGGED INTO RED OUTLET. SPARE TRACH AND AMBU BAG AT BEDSIDE. BREATHING TX'S GIVEN ORDERED. NO ADVERSE REACTIONS NOTED. SUCTIONED SMALL AMOUNTS OF PALE YELLOW SECRETIONS. ALARMS ON AND AUDIBLE. WILL CONTINUE TO MONITOR THE PATIENT FOR ANY CHANGES
[2019-05-23 20:00] VITALS: BP 153/79
[2019-05-23] MEDS ORDERED: TPN BAG #19 IV PRN ×9 (20:00)
--- NOTE | 2019-05-23 20:26 | NUR ---
MACHINE PULLER AND LASTER OPENING NOTES RECEIVED REPORT FROM JULIANA DELCID. PATIENT A/A/O X1 TO NAME, NON-VERBAL & UNABLE TO MAKE NEEDS KNOWN. RESPONSIVE TO VERBAL & TACTILE STIMULI. BREATHING EVEN & UNLABORED W/ TRACH INTACT & TOLERATING VENT SETTINGS AC 19, TV 550, FIO2 30%, PEEP 5. NO S/S OF RESPIRATORY DISTRESS NOTED. ON TELE W/ SINUS RHYTHM & 1ST DEGREE AVB, HR 70S. LEFT IJ INTACT & PATENT W/ DRESSING CDI W/ TPN INFUSING WELL @ 70 MLHR. G-TUBE W/ NO S/S OF INFECTION NOTED, CLAMPED @ THIS TIME. SOME LEAKING STILL NOTED @ OLD G-TUBE SITE. NO S/S OF PAIN OR DISCOMFORT @ THIS TIME. SAFETY MEASURES IN PLACE W/ SIDE RAILS UP & BED ALARM ON. WILL CONTINUE TO MONITOR.
[2019-05-23] MEDS: INSULIN GLARGINE, 100 UNIT/ML CARTRIDGE SQ SCH (21:30)
[2019-05-24] VITALS: BP 131/84
[2019-05-24] MEDS: ALBUTEROL FS 2.5 MG/0.5 ML VIAL.NEB NEB SCH ×6 (03:11→23:33)
[2019-05-24 04:00] VITALS: BP 132/80
[2019-05-24] MEDS: clonazePAM 0.5 MG TABLET GT SCH ×3 (05:00→21:00)
[2019-05-24] MEDS: MIDODRINE HCL (5MG) 5 MG TABLET GT SCH ×3 (05:00→21:00)
[2019-05-24] MEDS: BACLOFEN (10 MG) 10 MG TABLET GT SCH ×3 (05:00→21:00)
[2019-05-24] MEDS: METOCLOPRAMIDE HCL 10 MG/2 ML VIAL IV SCH ×3 (05:32→17:30)
[2019-05-24] MEDS: BLOOD SUGAR DIAGNOSTIC 1 EACH STRIP IN SCH ×4 (05:32→23:13)
[2019-05-24] MEDS: INSULIN REGULAR, HUMAN 100 UNIT/ML 3 ML VIAL SQ PRN (05:32)
--- NOTE | 2019-05-24 07:05 | NUR ---
RN NOTES RECEIVED PT ON BED, VENT/ TRACH DEPENDENT, NON-VERBAL & UNABLE TO MAKE NEEDS KNOWN. RESPONSIVE TO VERBAL & TACTILE STIMULI.TRACH CARE DONE ,TOLERATING CURRENT VENT SETTING WELL, NO SOB NOTED, ON TELE SINUS RHYTHM & 1ST DEGREE AVB, HR 70S. LEFT IJ INTACT & PATENT W/ DRESSING CDI W/ TPN INFUSING WELL @ 70CC HR. G-TUBE W/ NO S/S OF INFECTION NOTED, CLAMPED @ THIS TIME. SOME LEAKING STILL NOTED @ OLD G-TUBE SITE. SR UP x3, CALL LIGHT WITHIN EASY REACH, BED ALARM ON. CONTINUE TO MONITOR.
[2019-05-24 07:40] LABS: BASOPHILS # (AUTO) 0.1 /CMM (0.0-0.2); BASOPHILS % (AUTO) 1.3 % (0.0-2.0); EOSINOPHILS % (AUTO) 1.9 % (0.0-6.0); HEMATOCRIT 32 % (39-51); HEMOGLOBIN 10.7 g/dL (13.5-17.5); LYMPHOCYTES # (AUTO) 1.8 /CMM (0.8-4.8); LYMPHOCYTES % (AUTO) 22.2 % (20.0-44.0); MEAN CORPUSCULAR HGB CONC 33 g/dl (31.0-36.0); MEAN CORPUSCULAR VOLUME 92 fL (80-96); MONOCYTES # (AUTO) 0.7 /CMM (0.1-1.30); MONOCYTES % (AUTO) 8.7 % (2.0-12.0); NEUTROPHILS # (AUTO) 5.5 /CMM (1.8-8.9); NEUTROPHILS % (AUTO) 65.9 % (43.0-81.0); PLATELET COUNT (AUTO) 149 /CMM (150-450); WHITE BLOOD COUNT (AUTO) 8.3 K/uL (4.3-11.0)
[2019-05-24 07:59] LABS: CALCIUM, SERUM 8.9 mg/dL (8.5-10.1); CREATININE 0.6 mg/dL (0.6-1.3); MAGNESIUM 1.8 mg/dL (1.8-2.4); PHOSPHORUS 3.1 mg/dL (2.5-4.9); POTASSIUM 3.6 mmol/L (3.5-5.1)
[2019-05-24 08:00] VITALS: BP 110/48
[2019-05-24] MEDS: SUCRALFATE 1 G/10 ML UDC GT SCH ×4 (08:11→21:11)
[2019-05-24] MEDS: CHLORHEXIDINE GLUCONATE 15 ML UDC MM SCH ×2 (08:11→16:49)
[2019-05-24] MEDS: DOCUSATE SODIUM LIQ 100 MG/10 ML UDC GT SCH (08:11)
[2019-05-24] MEDS: ZINC SULFATE 220 MG CAPSULE GT SCH (08:11)
[2019-05-24] MEDS: MULTIVITAMINS,THERAGRAN 1 UDTAB TABLET GT SCH (08:11)
[2019-05-24] MEDS: ASCORBIC ACID 500 MG TABLET GT SCH ×2 (08:11→16:16)
[2019-05-24] MEDS: METOPROLOL TARTRATE 25 MG TABLET GT SCH ×2 (08:12→16:15)
[2019-05-24] MEDS: ACIDOPHILUS/BULGARICUS 1 EACH TAB.CHEW GT SCH ×3 (08:12→16:15)
[2019-05-24] MEDS: TRAMADOL HCL 50 MG TABLET GT SCH (08:13)
[2019-05-24] MEDS: FAMOTIDINE/PF INJ 20 MG/2 ML VIAL IV SCH ×2 (08:13→22:04)
[2019-05-24] MEDS: CLOTRIMAZOLE 1% 15 GM TUBE TP SCH ×2 (08:14→16:50)
[2019-05-24] MEDS: NYSTATIN/TRIAMCIN CREAM 15 GM TUBE TP SCH ×2 (08:14→16:50)
[2019-05-24] MEDS ORDERED: TPN BAG #20 IV PRN ×7 (10:00)
[2019-05-24 12:00] VITALS: BP 130/61
--- NOTE | 2019-05-24 12:00 | NUR ---
RN NOTES OR AND AND TRACH SUCTIONING DONE , VSS STABLE, CONTINUE TO MONITOR .
[2019-05-24] MEDS: FAT EMULSION 20% 500 ML in PREMIX 1 EA IV SCH (14:44)
[2019-05-24 16:00] VITALS: BP 104/49
--- NOTE | 2019-05-24 18:17 | NUR ---
RN NOTES SMALL AMOUNT OF LEAKAGE NOTED FROM OLD PEG SITE , NEW DRESSING APPLIED, VSS STABLE , TPN AT 70CC/HR , LIPID AT 20CC/HR RUNNING VIA LEFT NECK TLC, SITE CLEAN ,DRY AND INTACT , SR UP x3, CALL LIGHT WITHIN EASY REACH, BED LOCKED AND IN LOWEST POSITION,WILL ENDORSE TO BAR WELDER NURSE FOR CONTINUITY OF CARE.
--- NOTE | 2019-05-24 19:40 | NUR ---
RT NOTE PATIENT RECEIVED TRACHED ON MECHANICAL VENTILATION. VENT PLUGGED TO RED OUTLET. AMBU BAG/BACK UP TRACH @ BEDSIDE. ALARMS ON AND AUDIBLE. TX GIVEN, NO ADVERSE REACTIONS NOTED. PATIENT STABLE AT THIS TIME. WILL MONITOR CLOSELY. CONT. POX CONNECTED. Addendum: 05/25/19 at 0546 by CARLENE JAIME RT Amended: Links added.
[2019-05-24 20:00] VITALS: BP 146/76
--- NOTE | 2019-05-24 20:00 | NUR ---
TRAINING AND DEVELOPMENT PROFESSIONAL INITIAL NOTES RECEIVED PATIENT AWAKE , NON-VERBAL & UNABLE TO MAKE NEEDS KNOWN. RESPONSIVE TO VERBAL & TACTILE STIMULI. BREATHING EVEN & UNLABORED W/ TRACH INTACT & TOLERATING VENT SETTINGS AC 19, TV 550, FIO2 30%, PEEP 5. NO S/S OF RESPIRATORY DISTRESS NOTED. ON TELE W/ SINUS RHYTHM & 1ST DEGREE AVB, HR 73 . LEFT IJ INTACT & PATENT W/ DRESSING CDI W/ TPN INFUSING WELL @ 70 MLHR, LIPIDS RUNNING @20ML/HR Q48 HR. G-TUBE W/ NO S/S OF INFECTION NOTED, CLAMPED @ THIS TIME. SOME LEAKING STILL NOTED @ OLD G-TUBE SITE. NO S/S OF PAIN OR DISCOMFORT @ THIS TIME. SAFETY MEASURES IN PLACE W/ SIDE RAILS UP & BED ALARM ON. WILL CONTINUE TO MONITOR
--- NOTE | 2019-05-24 21:13 | NUR ---
RN EDWARDO NOTE ALL 2100 AND 2200 GTUBE MEDS CONTINUED TO HOLD GT CLAMPED D/T LEAKING PER MD ORDER. WILL CONT' TO MONITOR.
[2019-05-24] MEDS ORDERED: TPN BAG #21 IV PRN ×9 (22:00)
[2019-05-24] MEDS: INSULIN GLARGINE, 100 UNIT/ML CARTRIDGE SQ SCH (23:13)
[2019-05-25] VITALS: BP 133/72
[2019-05-25] MEDS: METOCLOPRAMIDE HCL 10 MG/2 ML VIAL IV SCH ×4 (01:33→17:54)
[2019-05-25] MEDS: ALBUTEROL FS 2.5 MG/0.5 ML VIAL.NEB NEB SCH ×6 (03:56→22:51)
[2019-05-25 04:00] VITALS: BP 145/82
[2019-05-25] MEDS: MIDODRINE HCL (5MG) 5 MG TABLET GT SCH ×3 (04:45→21:00)
[2019-05-25] MEDS: BACLOFEN (10 MG) 10 MG TABLET GT SCH ×3 (04:45→21:00)
[2019-05-25] MEDS: clonazePAM 0.5 MG TABLET GT SCH ×3 (04:45→21:00)
[2019-05-25] MEDS: BLOOD SUGAR DIAGNOSTIC 1 EACH STRIP IN SCH ×3 (05:28→17:54)
--- NOTE | 2019-05-25 06:12 | NUR ---
RN EDWARDO NOTE PT ENDORSED FOR KEVIN, TPN BAG 21, LAST BAG, BS STABLE.
[2019-05-25 06:32] LABS: BASOPHILS # (AUTO) 0.1 /CMM (0.0-0.2); BASOPHILS % (AUTO) 1.9 % (0.0-2.0); EOSINOPHILS % (AUTO) 4.3 % (0.0-6.0); HEMATOCRIT 34 % (39-51); HEMOGLOBIN 11.5 g/dL (13.5-17.5); LYMPHOCYTES # (AUTO) 1.7 /CMM (0.8-4.8); LYMPHOCYTES % (AUTO) 22.7 % (20.0-44.0); MEAN CORPUSCULAR HGB CONC 33 g/dl (31.0-36.0); MEAN CORPUSCULAR VOLUME 91 fL (80-96); MONOCYTES # (AUTO) 0.6 /CMM (0.1-1.30); MONOCYTES % (AUTO) 8.1 % (2.0-12.0); NEUTROPHILS # (AUTO) 4.7 /CMM (1.8-8.9); PLATELET COUNT (AUTO) 148 /CMM (150-450); RED BLOOD CELL COUNT(AUTO) 3.77 MIL/uL (4.5-6.0); WHITE BLOOD COUNT (AUTO) 7.5 K/uL (4.3-11.0)
[2019-05-25 07:00] LABS: CREATININE 0.6 mg/dL (0.6-1.3); MAGNESIUM 1.8 mg/dL (1.8-2.4); PHOSPHORUS 3.1 mg/dL (2.5-4.9); POTASSIUM 3.7 mmol/L (3.5-5.1)
--- NOTE | 2019-05-25 07:30 | NUR ---
INITIAL PATIENT AWAKE , NON-VERBAL & UNABLE TO MAKE NEEDS KNOWN. RESPONSIVE TO VERBAL & TACTILE STIMULI. BREATHING EVEN & UNLABORED W/ TRACH INTACT & TOLERATING VENT SETTINGS AC 19, TV 550, FIO2 30%, PEEP 5. NO S/S OF RESPIRATORY DISTRESS NOTED. ON TELE W/ SINUS RHYTHM & 1ST DEGREE AVB, HR 89 . LEFT IJ INTACT & PATENT W/ DRESSING CDI W/ TPN INFUSING WELL @ 70 MLHR, LIPIDS RUNNING @20ML/HR Q48 HR. G-TUBE W/ NO S/S OF INFECTION NOTED, CLAMPED @ THIS TIME. SOME LEAKING STILL NOTED @ OLD G-TUBE SITE. NO S/S OF PAIN OR DISCOMFORT @ THIS TIME. SAFETY MEASURES IN PLACE W/ SIDE RAILS UP & BED ALARM ON. WILL CONTINUE TO MONITOR
[2019-05-25 08:00] VITALS: BP 144/72
[2019-05-25] MEDS: SUCRALFATE 1 G/10 ML UDC GT SCH ×4 (08:18→21:02)
[2019-05-25] MEDS ORDERED: TPN BAG #21 IV PRN ×9 (09:00)
[2019-05-25] MEDS: ZINC SULFATE 220 MG CAPSULE GT SCH (10:11)
[2019-05-25] MEDS: FAMOTIDINE/PF INJ 20 MG/2 ML VIAL IV SCH ×2 (10:11→22:14)
[2019-05-25] MEDS: CHLORHEXIDINE GLUCONATE 15 ML UDC MM SCH ×2 (10:11→16:27)
[2019-05-25] MEDS: ASCORBIC ACID 500 MG TABLET GT SCH ×2 (10:11→16:27)
[2019-05-25] MEDS: ACIDOPHILUS/BULGARICUS 1 EACH TAB.CHEW GT SCH ×3 (10:11→16:26)
[2019-05-25] MEDS: TRAMADOL HCL 50 MG TABLET GT SCH (10:11)
[2019-05-25] MEDS: MULTIVITAMINS,THERAGRAN 1 UDTAB TABLET GT SCH (10:11)
[2019-05-25] MEDS: DOCUSATE SODIUM LIQ 100 MG/10 ML UDC GT SCH (10:11)
[2019-05-25] MEDS: METOPROLOL TARTRATE 25 MG TABLET GT SCH ×2 (10:12→16:26)
[2019-05-25] MEDS: CLOTRIMAZOLE 1% 15 GM TUBE TP SCH ×2 (10:13→16:28)
[2019-05-25] MEDS: NYSTATIN/TRIAMCIN CREAM 15 GM TUBE TP SCH ×2 (10:14→16:29)
[2019-05-25] MEDS: ACETAMINOPHEN 650 MG/SUPP.RECT RC PRN (11:51)
[2019-05-25 12:00] VITALS: BP 149/91
[2019-05-25] MEDS: INSULIN REGULAR, HUMAN 100 UNIT/ML 3 ML VIAL SQ PRN ×2 (12:58→18:12)
--- NOTE | 2019-05-25 14:32 | NUR ---
texted ole wang from GI who does not want any medications given through G-Tube absolutely. text MD Christianson about GI concerns MD to re-route medications.
[2019-05-25] MEDS ORDERED: TPN BAG #22 IV PRN ×7 (15:00)
[2019-05-25 16:00] VITALS: BP 125/64
--- NOTE | 2019-05-25 18:20 | NUR ---
CLOSING PATIENT A/A/O X1 TO NAME, NON-VERBAL & UNABLE TO MAKE NEEDS KNOWN. RESPONSIVE TO VERBAL & TACTILE STIMULI. BREATHING EVEN & UNLABORED W/ TRACH INTACT & TOLERATING VENT SETTINGS AC 14, TV 550, FIO2 50%, PEEP 5. NO S/S OF RESPIRATORY DISTRESS NOTED. ON TELE W/ SINUS RHYTHM & 1ST DEGREE AVB, HR 70S. LEFT IJ INTACT & PATENT W/ DRESSING CDI W/ TPN INFUSING WELL @ 70 ML/HR & LIPIDS DISCONTINUED FOR 24 HOURS. . G-TUBE W/ NO S/S OF INFECTION NOTED, CLAMPED @ THIS TIME G-TUBE NOT TO BE USED AT ALL NOT EVEN FOR MEDICATIONS WAITING FOR MD RASIHD TO RE-WRITE MEDICATION ROUTE.. NO S/S OF PAIN OR DISCOMFORT @ THIS TIME. SAFETY MEASURES IN PLACE W/ SIDE RAILS UP & BED ALARM ON. WILL ENDORSE CONTINUITY OF CARE TO AUTO PARKER RN.
--- NOTE | 2019-05-25 19:33 | NUR ---
RT NOTE PT RCVD TRACH'D ON MECHANICAL VENT WITH CHARTED SETTINGS. TX ANN WELL. SX DONE. PT TRACH IS PATENT AND SECURE. VENT IS PLUGGED INTO RED OUTLET. ALARMS ARE ON AND AUDIBLE. AMBU BAG AT BEDSIDE. WILL CONTINUE TO MONITOR. Addendum: 05/25/19 at 1934 by ANGELITO GANN RT Amended: Links added.
--- NOTE | 2019-05-25 19:50 | NUR ---
RN INITIAL NOTES RECEIVED PATIENT'S REPORT FROM AM RN. PATIENT AWAKE , NON-VERBAL & UNABLE TO MAKE NEEDS KNOWN. RESPONSIVE TO VERBAL & TACTILE STIMULI. BREATHING EVEN & UNLABORED W/ TRACH INTACT & TOLERATING VENT SETTINGS AC 19, TV 550, FIO2 30%, PEEP 5. NO S/S OF RESPIRATORY DISTRESS NOTED. ON TELE W/ SINUS RHYTHM & 1ST DEGREE AVB, HR 98 . LEFT IJ IV LINE INTACT & PATENT W/ DRESSING CDI W/ TPN INFUSING WELL @ 70 MLHR, G-TUBE W/ NO S/S OF INFECTION NOTED, CLAMPED @ THIS TIME. NO GT USING AT THIS TIME PER MD ORDER EVEN FOR MEDICATIONS. SOME LEAKING STILL NOTED @ OLD G-TUBE SITE. NO S/S OF PAIN OR DISCOMFORT @ THIS TIME. SAFETY MEASURES IN PLACE W/ SIDE RAILS UP X2 & BED ALARM ON. WILL CONTINUE TO MONITOR PATIENT CLOSELY.
[2019-05-25 20:00] VITALS: BP 112/59
[2019-05-25] MEDS: INSULIN GLARGINE, 100 UNIT/ML CARTRIDGE SQ SCH (22:00)
--- NOTE | 2019-05-25 22:35 | NUR ---
PATIENT TPN INFUSING WELL @ 70 MLHR WITH BS OF 95. WILL HOLD INSULIN LANTUS AT THIS TIME.
[2019-05-26] VITALS: BP 160/88
[2019-05-26] MEDS: hydrALAZINE HCL IV 20 MG VIAL IV PRN (00:32)
[2019-05-26] MEDS: METOCLOPRAMIDE HCL 10 MG/2 ML VIAL IV SCH ×5 (00:33→23:51)
[2019-05-26] MEDS: BLOOD SUGAR DIAGNOSTIC 1 EACH STRIP IN SCH ×5 (00:33→22:57)
--- NOTE | 2019-05-26 00:35 | NUR ---
RN NOTES PATIENT B/P IS 160/88 HR 71 HYDRALAZINE 10MG IV PUSH GIVEN . WILL RECHECK PT B/P AGAIN.
--- NOTE | 2019-05-26 01:10 | NUR ---
PT B/P RECHECKED 137/71 HR 71. WILL CONTINUE TO MONITOR PATIENT.
[2019-05-26] MEDS: ALBUTEROL FS 2.5 MG/0.5 ML VIAL.NEB NEB SCH ×6 (03:24→23:22)
[2019-05-26 04:00] VITALS: BP 105/44
[2019-05-26] MEDS: BACLOFEN (10 MG) 10 MG TABLET GT SCH ×3 (04:48→21:00)
[2019-05-26] MEDS: clonazePAM 0.5 MG TABLET GT SCH ×3 (04:48→21:00)
[2019-05-26] MEDS: MIDODRINE HCL (5MG) 5 MG TABLET GT SCH ×3 (04:48→21:00)
[2019-05-26 07:07] LABS: BASOPHILS # (AUTO) 0.1 /CMM (0.0-0.2); EOSINOPHILS % (AUTO) 2.8 % (0.0-6.0); HEMATOCRIT 33 % (39-51); LYMPHOCYTES # (AUTO) 1.9 /CMM (0.8-4.8); LYMPHOCYTES % (AUTO) 25.7 % (20.0-44.0); MEAN CORPUSCULAR HGB CONC 33 g/dl (31.0-36.0); MEAN CORPUSCULAR VOLUME 91 fL (80-96); MONOCYTES # (AUTO) 0.6 /CMM (0.1-1.30); MONOCYTES % (AUTO) 7.9 % (2.0-12.0); NEUTROPHILS # (AUTO) 4.5 /CMM (1.8-8.9); NEUTROPHILS % (AUTO) 61.6 % (43.0-81.0); PLATELET COUNT (AUTO) 152 /CMM (150-450); RED BLOOD CELL COUNT(AUTO) 3.66 MIL/uL (4.5-6.0); WHITE BLOOD COUNT (AUTO) 7.2 K/uL (4.3-11.0)
[2019-05-26 07:21] LABS: CALCIUM, SERUM 9.3 mg/dL (8.5-10.1); CREATININE 0.7 mg/dL (0.6-1.3); MAGNESIUM 2.1 mg/dL (1.8-2.4); POTASSIUM 3.5 mmol/L (3.5-5.1)
[2019-05-26] MEDS: SUCRALFATE 1 G/10 ML UDC GT SCH ×4 (07:30→21:25)
[2019-05-26 08:00] VITALS: BP 122/67
--- NOTE | 2019-05-26 08:00 | NUR ---
rn inital notes received pt awake, obtunded, no indication of any discomfort or distress noted. trach in place with vent settings tolerated well, alarms remains audible. left ij line triple lumen in place secured with clean and dry dressing , tpn infusing. pt with contracted ext; positioned for comfort. gt remains clamped. oral care done. safety ensured. sinus rhythm on the monitor.
[2019-05-26] MEDS: CHLORHEXIDINE GLUCONATE 15 ML UDC MM SCH ×2 (08:46→17:22)
[2019-05-26] MEDS: FAMOTIDINE/PF INJ 20 MG/2 ML VIAL IV SCH ×2 (08:46→22:03)
[2019-05-26] MEDS: Z GUARD REMEDY 2 OZ OINT TP PRN (08:47)
[2019-05-26] MEDS: CLOTRIMAZOLE 1% 15 GM TUBE TP SCH ×2 (08:47→17:20)
[2019-05-26] MEDS: DOCUSATE SODIUM LIQ 100 MG/10 ML UDC GT SCH (08:48)
[2019-05-26] MEDS: ACIDOPHILUS/BULGARICUS 1 EACH TAB.CHEW GT SCH ×3 (08:48→16:33)
[2019-05-26] MEDS: METOPROLOL TARTRATE 25 MG TABLET GT SCH ×2 (08:48→16:34)
[2019-05-26] MEDS: MULTIVITAMINS,THERAGRAN 1 UDTAB TABLET GT SCH (08:49)
[2019-05-26] MEDS: TRAMADOL HCL 50 MG TABLET GT SCH (08:49)
[2019-05-26] MEDS: ZINC SULFATE 220 MG CAPSULE GT SCH (08:50)
[2019-05-26] MEDS: ASCORBIC ACID 500 MG TABLET GT SCH ×2 (08:50→16:35)
[2019-05-26] MEDS: NYSTATIN/TRIAMCIN CREAM 15 GM TUBE TP SCH ×2 (08:51→22:00)
[2019-05-26 12:00] VITALS: BP_SYST 122; BP_SYST 131; BP_DIAS 67; BP_DIAS 78
[2019-05-26] MEDS ORDERED: TPN BAG #23 IV PRN ×9 (12:00)
[2019-05-26] MEDS: FAT EMULSION 20% 500 ML in PREMIX 1 EA IV SCH (14:05)
[2019-05-26 16:00] VITALS: BP 139/70
--- NOTE | 2019-05-26 18:48 | NUR ---
rn closing notes pt remains obtunded, no significant change noted during this shift. turned and repositioned at intervals. dressing changed as needed; site kept clean and dry. safety ensured at all times. will endorse to next shift for continuity of care in stable condition Addendum: 05/26/19 at 1911 by MILDRED MORRIS RN mycolog cream reordered with chapincito earlier not delivered yet; endorsed to next shift priscilla Navarrete to f/up/ administer once available
--- NOTE | 2019-05-26 19:20 | NUR ---
EDWARDO/SWIMMER RECEIVED REPORT FROM DAY NURSE. SEE FLOWSHEET FOR ASSESSMENT, ALONG WITH SKIN ISSUES THAT PT MAY HAVE ALONG WITH THE INTERVENTIONS TO EACH OF THESE. PT WAS TURNED AND REPOSITIONED FOR COMFORT AND CARE. WILL CONTINUE TO MONITOR THIS PT. NO ACUTE DISTRESS SEEN AT THIS TIME.
[2019-05-26 20:00] VITALS: BP 142/75
--- NOTE | 2019-05-26 21:26 | NUR ---
EDWARDO/AUTOMATIC I THREADING MACHINE FEEDER PT HAS 2100 MEDICATION WHICH ARE SUPPOSED TO BE GIVEN VIA G/TUBE HOWEVER THERE IS NO ORDERERS WHICH SAY IT'S OK TO USE THE G/TUBE FOR MEDICATIONS. PT IS CURRENTLY ON TPN AND LIPIDS. THE LAST TIME THAT THE G/TUBE WAS USED THERE WAS SOME LEAKING AROUND THE G/TUBE. WILL CONTINUE TO CLOSELY MONITOR THIS PT.
--- NOTE | 2019-05-26 22:10 | NUR ---
EDWARDO/HEADING UP MACHINE OPERATOR PT WAS GIVEN PM CARE, ALONG WITH ORAL CARE. PT REMAINS ON CURRENT VENT SETTINGS, WITH SATURATION AT 98-100%. PT WAS TURNED AND REPOSITIONED FOR COMFORT AND CARE. WILL CONTINUE TO MONITOR THIS PT. NO ACUTE DISTRESS SEEN AT THIS TIME
[2019-05-26] MEDS: INSULIN GLARGINE, 100 UNIT/ML CARTRIDGE SQ SCH (22:57)
--- NOTE | 2019-05-26 23:00 | NUR ---
EDWARDO/ASSISTANT ASSOCIATE FULL PROFESSOR PT WAS GIVEN THE 5 UNITS OF LANTUS TO COVER THE BLOOD SUGAR OF 123, HOWEVER FOR MIDNIGHT BLOOD SUGAR NOTHING WAS GIVEN TO COVER THIS. WILL CONTINUE TO MONITOR THIS PT'S BLOOD SUGAR ORDERED BY MD AND HOSPITAL PROTOCOL.
[2019-05-27] VITALS (7 sets, daily range): BP systolic 118–166; BP diastolic 68–101
[2019-05-27] MEDS ORDERED: TPN BAG #24 IV PRN ×7 (01:00)
[2019-05-27] MEDS: ALBUTEROL FS 2.5 MG/0.5 ML VIAL.NEB NEB SCH ×6 (03:35→23:28)
[2019-05-27] MEDS: BACLOFEN (10 MG) 10 MG TABLET GT SCH ×3 (05:00→20:38)
[2019-05-27] MEDS: MIDODRINE HCL (5MG) 5 MG TABLET GT SCH ×3 (05:00→20:38)
[2019-05-27] MEDS: clonazePAM 0.5 MG TABLET GT SCH ×3 (05:00→20:38)
--- NOTE | 2019-05-27 05:04 | NUR ---
EDWARDO/BUS ANALYST 0500 MEDICATION WAS NOT GIVEN DUE TO UNABLE TO G/TUBE
--- NOTE | 2019-05-27 06:30 | NUR ---
EDWARDO/CUSTOMER CARE ASSOCIATE BLOOD SUGAR IS 99, THERE IS NO COVERAGE FOR THIS PER MD'S ORDERS. PT WAS TURNED AND REPOSITIONED FOR COMFORT AND CARE. WILL CONTINUE TO MONITOR THIS PT
[2019-05-27] MEDS: BLOOD SUGAR DIAGNOSTIC 1 EACH STRIP IN SCH ×3 (06:32→17:09)
[2019-05-27] MEDS: METOCLOPRAMIDE HCL 10 MG/2 ML VIAL IV SCH ×3 (06:32→17:34)
[2019-05-27] MEDS: SUCRALFATE 1 G/10 ML UDC GT SCH ×4 (06:51→20:38)
[2019-05-27 06:56] LABS: BASOPHILS # (AUTO) 0.1 /CMM (0.0-0.2); BASOPHILS % (AUTO) 2.1 % (0.0-2.0); EOSINOPHILS % (AUTO) 3.9 % (0.0-6.0); HEMATOCRIT 35 % (39-51); HEMOGLOBIN 11.3 g/dL (13.5-17.5); LYMPHOCYTES # (AUTO) 2.6 /CMM (0.8-4.8); LYMPHOCYTES % (AUTO) 37.4 % (20.0-44.0); MEAN CORPUSCULAR HGB CONC 33 g/dl (31.0-36.0); MEAN CORPUSCULAR VOLUME 91 fL (80-96); MONOCYTES # (AUTO) 0.7 /CMM (0.1-1.30); MONOCYTES % (AUTO) 9.4 % (2.0-12.0); NEUTROPHILS # (AUTO) 3.3 /CMM (1.8-8.9); NEUTROPHILS % (AUTO) 47.2 % (43.0-81.0); PLATELET COUNT (AUTO) 154 /CMM (150-450); RED BLOOD CELL COUNT(AUTO) 3.79 MIL/uL (4.5-6.0)
--- NOTE | 2019-05-27 07:05 | NUR ---
SEAT JOINER OPENING NOTES RECEIVED PT LYING ON BED,NON VERBAL AND CONTRACTED.ON TELE HR IS 65 WITH SR.NO SOB AND ACUTE DISTRESS NOTED.NOTED WITH OLD G TUBE STOMA IS LEAKING.HOLDING ALL THE G TUBE MEDS AND WATER FLUSHING ON IT.IV SITE IS ON LEFT IJ WITH TPN RUNNING @70ML/HR AND LIPIDS @20ML/HR.SITE IS C/D/I.NO INFILTRATION NOTED.BED IS IN LOW POSITION AND LOCKED,CALL LIGHT IS WITHIN REACH.WILL CONTINUE TO MONITOR THE PT CLOSELY.
[2019-05-27 07:14] LABS: CREATININE 0.7 mg/dL (0.6-1.3); MAGNESIUM 1.9 mg/dL (1.8-2.4); PHOSPHORUS 3.2 mg/dL (2.5-4.9); POTASSIUM 3.6 mmol/L (3.5-5.1)
[2019-05-27] MEDS: ACIDOPHILUS/BULGARICUS 1 EACH TAB.CHEW GT SCH ×3 (08:38→16:13)
[2019-05-27] MEDS: MULTIVITAMINS,THERAGRAN 1 UDTAB TABLET GT SCH (08:38)
[2019-05-27] MEDS: DOCUSATE SODIUM LIQ 100 MG/10 ML UDC GT SCH (08:38)
[2019-05-27] MEDS: TRAMADOL HCL 50 MG TABLET GT SCH (08:38)
[2019-05-27] MEDS: METOPROLOL TARTRATE 25 MG TABLET GT SCH ×2 (08:38→16:13)
[2019-05-27] MEDS: ASCORBIC ACID 500 MG TABLET GT SCH ×2 (08:39→16:13)
[2019-05-27] MEDS: NYSTATIN/TRIAMCIN CREAM 15 GM TUBE TP SCH ×2 (08:39→16:15)
[2019-05-27] MEDS: ZINC SULFATE 220 MG CAPSULE GT SCH (08:39)
[2019-05-27] MEDS: CLOTRIMAZOLE 1% 15 GM TUBE TP SCH ×2 (08:39→16:14)
[2019-05-27] MEDS: CHLORHEXIDINE GLUCONATE 15 ML UDC MM SCH ×2 (09:10→16:14)
[2019-05-27] MEDS: FAMOTIDINE/PF INJ 20 MG/2 ML VIAL IV SCH ×2 (09:10→20:56)
[2019-05-27] MEDS: INSULIN REGULAR, HUMAN 100 UNIT/ML 3 ML VIAL SQ PRN ×2 (12:34→17:10)
[2019-05-27] MEDS ORDERED: TPN BAG #25 IV PRN ×9 (13:30)
--- NOTE | 2019-05-27 18:32 | NUR ---
PARTY COORDINATOR CLOSING NOTES PT IS LYING ON BED WITH TRACH AND VENT DEPENDENT.NO SOB AND ACUTE DISTRESS NOTED.PT IS CLEAN AND DRY.WOUND DRESSING HAS DONE.IV LINE IS IN PLACE.TPN IS RUNNING.SITE IS C/D/I.NO INFILTRATION NOTED.RESPIRATION IS EVEN AND NONLABORED.ALL DUE MEDS ARE GIVEN.ENDORSING TO STAFF APPRAISER RN FOR KEVIN.
[2019-05-27] MEDS ORDERED: TPN BAG #26 IV PRN ×7 (20:00)
[2019-05-27] MEDS: INSULIN GLARGINE, 100 UNIT/ML CARTRIDGE SQ SCH (22:04)
[2019-05-28] VITALS: BP 127/66
[2019-05-28] MEDS: BLOOD SUGAR DIAGNOSTIC 1 EACH STRIP IN SCH ×5 (00:21→23:42)
[2019-05-28] MEDS: METOCLOPRAMIDE HCL 10 MG/2 ML VIAL IV SCH ×5 (00:23→23:41)
[2019-05-28] MEDS: ALBUTEROL FS 2.5 MG/0.5 ML VIAL.NEB NEB SCH ×5 (03:25→20:02)
[2019-05-28 04:00] VITALS: BP 126/81
[2019-05-28] MEDS: BACLOFEN (10 MG) 10 MG TABLET GT SCH ×3 (04:43→20:49)
[2019-05-28] MEDS: MIDODRINE HCL (5MG) 5 MG TABLET GT SCH ×3 (04:43→20:49)
[2019-05-28] MEDS: clonazePAM 0.5 MG TABLET GT SCH ×3 (04:43→20:48)
[2019-05-28 06:44] LABS: CALCIUM, SERUM 9.2 mg/dL (8.5-10.1); CREATININE 0.7 mg/dL (0.6-1.3)
--- NOTE | 2019-05-28 07:05 | NUR ---
JOURNEYMAN LEVEL ACOUSTIC ANALYST OPENING NOTES RECEIVED PT LYING ON BED,NON VERBAL AND CONTRACTED.ON TELE HR IS 65 WITH SR.NO SOB AND ACUTE DISTRESS NOTED.NOTED WITH OLD G TUBE STOMA HAS MILD LEAKING.HOLDING ALL THE G TUBE MEDS AND WATER FLUSHING ON IT.IV SITE IS ON LEFT IJ WITH TPN RUNNING @70ML/HR.SITE IS C/D/I.NO INFILTRATION NOTED.BED IS IN LOW POSITION AND LOCKED,CALL LIGHT IS WITHIN REACH.WILL CONTINUE TO MONITOR THE PT CLOSELY.
[2019-05-28 08:00] VITALS: BP 152/77
[2019-05-28] MEDS: SUCRALFATE 1 G/10 ML UDC GT SCH ×4 (08:48→21:11)
[2019-05-28] MEDS: METOPROLOL TARTRATE 25 MG TABLET GT SCH ×2 (08:49→17:00)
[2019-05-28] MEDS: TRAMADOL HCL 50 MG TABLET GT SCH (08:49)
[2019-05-28] MEDS: ACIDOPHILUS/BULGARICUS 1 EACH TAB.CHEW GT SCH ×3 (08:49→17:00)
[2019-05-28] MEDS: DOCUSATE SODIUM LIQ 100 MG/10 ML UDC GT SCH (08:49)
[2019-05-28] MEDS: MULTIVITAMINS,THERAGRAN 1 UDTAB TABLET GT SCH (08:49)
[2019-05-28] MEDS: CLOTRIMAZOLE 1% 15 GM TUBE TP SCH ×2 (08:49→17:04)
[2019-05-28] MEDS: ZINC SULFATE 220 MG CAPSULE GT SCH (08:49)
[2019-05-28] MEDS: ASCORBIC ACID 500 MG TABLET GT SCH ×2 (08:49→17:00)
[2019-05-28] MEDS: NYSTATIN/TRIAMCIN CREAM 15 GM TUBE TP SCH ×2 (08:50→17:04)
[2019-05-28] MEDS: FAMOTIDINE/PF INJ 20 MG/2 ML VIAL IV SCH ×2 (08:51→21:11)
[2019-05-28] MEDS: CHLORHEXIDINE GLUCONATE 15 ML UDC MM SCH ×2 (08:52→16:55)
[2019-05-28 11:03] LABS: PHOSPHORUS 3.3 mg/dL (2.5-4.9)
[2019-05-28 12:00] VITALS: BP 157/85
[2019-05-28] MEDS: INSULIN REGULAR, HUMAN 100 UNIT/ML 3 ML VIAL SQ PRN ×2 (13:11→17:05)
[2019-05-28] MEDS ORDERED: TPN BAG #27 IV PRN ×9 (15:00)
[2019-05-28] MEDS: FAT EMULSION 20% 500 ML in PREMIX 1 EA IV SCH (15:06)
[2019-05-28 16:00] VITALS: BP 162/92
--- NOTE | 2019-05-28 16:01 | NUR ---
RT REPORT; PT. 69 Y OLD MALE REC. 0700 AM TRACH'D SHILEY XLT # 6 PT. AWAKE, BUT NOT RESPONSIVE. AND ON VENT WITH NOTED SETTINGS, ALARMS ARE SET AND FUNCTIONAL, EQUAL CHEST RISE NOTED, NO DISTRESS, TX'S GIVEN INLINE Q4 NO ADVERSE REACTION, B/S BILATERALLY RALES AND SUX'D FOR MINIMAL AMT OF WHITE SECRETIONS. PT, REMAIN STABLE, NO CHANGES, HME CHANGED POLYSOMNOGRAPHY TECH DONE. VENT IN RED OUT LET, AMBU BAG AND EXTRA TRACH AT THE BEDSIDE. Addendum: 05/28/19 at 1602 by LUCIANO WAGNER RT Amended: Links added.
[2019-05-28 20:00] VITALS: BP 120/66
--- NOTE | 2019-05-28 20:04 | NUR ---
MANAGER CHILD CLOSING NOTES PT IS LYING ON BED WITH VENT AND TRACH DEPEND.NO SOB AND ACUTE DISTRESS NOTED.ON TPN AND IV LIPIDS.RESPIRATION IS EVEN AND NONLABORED.ENDORSED TO BRASS MOLDER FARHANA MURCIA FOR KEVIN.
[2019-05-28] MEDS: INSULIN GLARGINE, 100 UNIT/ML CARTRIDGE SQ SCH (21:37)
[2019-05-29] VITALS (7 sets, daily range): BP systolic 129–165; BP diastolic 72–94
[2019-05-29] MEDS: ALBUTEROL FS 2.5 MG/0.5 ML VIAL.NEB NEB SCH ×7 (00:03→23:19)
--- NOTE | 2019-05-29 02:30 | NUR ---
RN NOTE REPORT GIVEN TO JESSI DELCID
--- NOTE | 2019-05-29 02:35 | NUR ---
UTILITY WORKER PRODUCTION NOTE PT IN BED WITH EYES OPEN, NON VERBAL. TOLERATING VENT SENTINGS WELL. NO DISTRESS OR DISCOMFORT NOTED. NO S/S OF PAIN NOTED. GT INTACT AND PATENT. OLD GT SITE WITH DRESSING ON. LIJ WITH TPN INFUSING WELL. ALSO INFUSING LIPIDS ORDERED. REPOSITION Q2H, KEPT HIM DRY AND CLEAN. ALL NEEDS ATTENDED.
[2019-05-29] MEDS: BACLOFEN (10 MG) 10 MG TABLET GT SCH ×3 (05:00→20:26)
[2019-05-29] MEDS: clonazePAM 0.5 MG TABLET GT SCH ×3 (05:00→20:25)
[2019-05-29] MEDS: MIDODRINE HCL (5MG) 5 MG TABLET GT SCH ×3 (05:00→20:26)
[2019-05-29] MEDS: BLOOD SUGAR DIAGNOSTIC 1 EACH STRIP IN SCH ×4 (06:35→23:16)
[2019-05-29] MEDS: METOCLOPRAMIDE HCL 10 MG/2 ML VIAL IV SCH ×3 (06:37→17:32)
--- NOTE | 2019-05-29 06:49 | NUR ---
LONG TERM CARE PHLEBOTOMIST NOTE PT IN BED WITH EYES OPEN, NON VERBAL. TOLETATING THE SETTINGS WELL. NO DISTRESS OR DISCOMFORT NOTED. SR /SB WITH 1ST DEGREE AV BLOCK. TPN/LIPIDS INFUSING WELL. SIDE RAILS UP X 2 AND CALL LIGHT WITHIN REACH. REPOSITION HIM Q2H, WILL ENDORSE TO DAY SHIFT NURSE FOR CONTINUE TO CARE.
[2019-05-29 07:13] LABS: BASOPHILS # (AUTO) 0.1 /CMM (0.0-0.2); BASOPHILS % (AUTO) 1.8 % (0.0-2.0); EOSINOPHILS % (AUTO) 4.4 % (0.0-6.0); HEMATOCRIT 36 % (39-51); HEMOGLOBIN 11.7 g/dL (13.5-17.5); LYMPHOCYTES # (AUTO) 2.6 /CMM (0.8-4.8); LYMPHOCYTES % (AUTO) 33.7 % (20.0-44.0); MEAN CORPUSCULAR HGB CONC 33 g/dl (31.0-36.0); MEAN CORPUSCULAR VOLUME 91 fL (80-96); MONOCYTES # (AUTO) 0.8 /CMM (0.1-1.30); NEUTROPHILS # (AUTO) 3.9 /CMM (1.8-8.9); NEUTROPHILS % (AUTO) 50.1 % (43.0-81.0); PLATELET COUNT (AUTO) 176 /CMM (150-450); RED BLOOD CELL COUNT(AUTO) 3.91 MIL/uL (4.5-6.0); WHITE BLOOD COUNT (AUTO) 7.7 K/uL (4.3-11.0)
[2019-05-29 07:29] LABS: CALCIUM, SERUM 9.2 mg/dL (8.5-10.1); CREATININE 0.7 mg/dL (0.6-1.3); POTASSIUM 3.8 mmol/L (3.5-5.1)
[2019-05-29] MEDS: SUCRALFATE 1 G/10 ML UDC GT SCH ×4 (07:30→21:12)
--- NOTE | 2019-05-29 07:45 | NUR ---
RN NOTE: RECEIVED PATIENT IN BED WITH (B) EYES OPEN, NONVERBAL AND OBTUNDED. BREATHING EVENLY AND UNLABORED SATURATING 100% IN CURRENT VENT SETTING. PATIENT ON MECHANICAL VENTILATOR WITH VENT SETTING AC 14 TV 550 FIO2 30% AND PEEP 5. ON TESTING AND REGULATING TECHNICIAN SB W/ 1ST DEGREE AV BLOCK HR= 55. (L) IJ NOTED WITH 3 LUMENS INFUSING TPN @70ML/HR AND LIPIDS @20ML/HR. ON BLOOD SUGAR CHECK Q6HR. REMAINED ON NPO STATUS INCLUDING NO MEDICATIONS ON THE GT. ON CONTACT ISOLATION FOR ESBL ABDOMINAL WOUND (OLD GT SITE). BED ALARMED AND LOCKED AT ALL TIMES. CALL LIGHT WITHIN REACH. NEEDS ANTICIPATED.
[2019-05-29] MEDS: ACIDOPHILUS/BULGARICUS 1 EACH TAB.CHEW GT SCH ×3 (08:17→16:52)
[2019-05-29] MEDS: METOPROLOL TARTRATE 25 MG TABLET GT SCH ×2 (08:17→16:52)
[2019-05-29] MEDS: DOCUSATE SODIUM LIQ 100 MG/10 ML UDC GT SCH (08:17)
[2019-05-29] MEDS: TRAMADOL HCL 50 MG TABLET GT SCH (08:18)
[2019-05-29] MEDS: ASCORBIC ACID 500 MG TABLET GT SCH ×2 (08:18→16:53)
[2019-05-29] MEDS: MULTIVITAMINS,THERAGRAN 1 UDTAB TABLET GT SCH (08:18)
[2019-05-29] MEDS: ZINC SULFATE 220 MG CAPSULE GT SCH (08:19)
[2019-05-29] MEDS: FAMOTIDINE/PF INJ 20 MG/2 ML VIAL IV SCH ×2 (08:19→21:14)
[2019-05-29] MEDS: NYSTATIN/TRIAMCIN CREAM 15 GM TUBE TP SCH ×2 (08:22→17:03)
[2019-05-29] MEDS: CLOTRIMAZOLE 1% 15 GM TUBE TP SCH ×2 (08:22→17:04)
[2019-05-29] MEDS: CHLORHEXIDINE GLUCONATE 15 ML UDC MM SCH ×2 (08:35→17:02)
[2019-05-29] MEDS ORDERED: TPN BAG #28 IV PRN ×7 (15:00)
[2019-05-29] MEDS ORDERED: TPN BAG #29 IV PRN ×9 (15:30)
--- NOTE | 2019-05-29 19:15 | NUR ---
RN NOTE: BEDSIDE REPORT GIVEN TO PM SHIFT NURSE FOR CONTINUITY OF CARE. PATIENT REMAINED ON CONTACT ISOLATION FOR ESBL ABDOMINAL WOUND (OLD GT SITE). TPN AND LIPIDS STILL INFUSING AT THIS TIME.
--- NOTE | 2019-05-29 19:41 | NUR ---
TELEPHONE SALES REPRESENTATIVE NOTE: RECEIVED PT ON BED AWAKE BUT NON VERBAL. NO APPARENT DISTRESS AT THIS TIME. NO FACIAL GRIMACING OR ANY SIGNS OF PAIN NOTED. ON [facility] VENT, SETTINGS ORDERED. SUCTIONED NEEDED. SINUS RHYTHM ON TELE MONITOR HR 70BPM. LEFT INTERNAL JUGULAR CATHETER INTACT AND PATENT, TPN INFUSING WELL. KEPT CLEAN, DRY AND COMFORTABLE. SAFETY AND FALL PRECAUTIONS OBSERVED AND MAINTAINED. WILL CONTINUE TO MONITOR PT.
[2019-05-29] MEDS: INSULIN GLARGINE, 100 UNIT/ML CARTRIDGE SQ SCH (23:19)
[2019-05-30] VITALS: BP 134/73
[2019-05-30] MEDS: METOCLOPRAMIDE HCL 10 MG/2 ML VIAL IV SCH ×5 (00:30→23:31)
[2019-05-30] MEDS: ALBUTEROL FS 2.5 MG/0.5 ML VIAL.NEB NEB SCH ×6 (03:19→23:25)
[2019-05-30 04:00] VITALS: BP 134/67
[2019-05-30] MEDS: MIDODRINE HCL (5MG) 5 MG TABLET GT SCH ×3 (04:39→20:44)
[2019-05-30] MEDS: BACLOFEN (10 MG) 10 MG TABLET GT SCH ×3 (04:39→20:44)
[2019-05-30] MEDS: clonazePAM 0.5 MG TABLET GT SCH ×3 (04:39→20:43)
[2019-05-30] MEDS: BLOOD SUGAR DIAGNOSTIC 1 EACH STRIP IN SCH ×4 (05:49→23:02)
--- NOTE | 2019-05-30 06:38 | NUR ---
TABLE TENDER NOTE: NO CHANGES NOTED THROUGHOUT THE SHIFT. NO APPARENT DISTRESS NOTED. NO FACIAL GRIMACING OR ANY SIGNS OF PAIN NOTED. ON [facility] VENT, SETTINGS ORDERED, SUCTIONED NEEDED. SATURATING WELL. SINUS RHYTHM ON TELE MONITOR HR 70 BPM. LEFT INTERNAL JUGULAR INTACT AND PATENT, TPN INFUSING WELL. ACCUCHECKS DONE ORDERED, BLOOD SUGAR WNL. KEPT CLEAN, DRY AND COMFORTABLE. SAFETY AND FALL PRECAUTIONS OBSERVED AND MAINTAINED. WILL ENDORSE TO DAY SHIFT RN FOR CONTINUITY OF CARE
[2019-05-30] MEDS: SUCRALFATE 1 G/10 ML UDC GT SCH ×4 (07:30→20:45)
--- NOTE | 2019-05-30 07:30 | NUR ---
RN NOTE: RECEIVED PATIENT IN BED CAN SPONTANEOUSLY OPEN (B) EYES, NONVERBAL AND OBTUNDED. RESPIRATION EVEN AND UNLABORED SATURATING 100% IN CURRENT VENT SETTING. PATIENT ON MECHANICAL VENTILATOR WITH VENT SETTING AC 14 TV 550 FIO2 30% AND PEEP 5. ON HOP TRAINER SR HR= 77. (L) IJ NOTED WITH 3 LUMENS INFUSING TPN @70ML/HR. BLOOD SUGAR CHECK Q6HR. REMAINED ON NPO STATUS INCLUDING ALL MEDICATIONS ON THE GT. ON CONTACT ISOLATION FOR ESBL ABDOMINAL WOUND (OLD GT SITE). BED ALARMED AND LOCKED AT ALL TIMES. CALL LIGHT WITHIN REACH. NEEDS ANTICIPATED. WILL TURN AND REPOSITION Q2HR.
[2019-05-30 08:00] VITALS: BP 157/88
[2019-05-30 08:01] LABS: BASOPHILS # (AUTO) 0.1 /CMM (0.0-0.2); EOSINOPHILS % (AUTO) 2.6 % (0.0-6.0); HEMATOCRIT 38 % (39-51); HEMOGLOBIN 12.4 g/dL (13.5-17.5); LYMPHOCYTES # (AUTO) 3.5 /CMM (0.8-4.8); LYMPHOCYTES % (AUTO) 34.1 % (20.0-44.0); MEAN CORPUSCULAR HGB CONC 33 g/dl (31.0-36.0); MEAN CORPUSCULAR VOLUME 91 fL (80-96); MONOCYTES # (AUTO) 0.9 /CMM (0.1-1.30); NEUTROPHILS # (AUTO) 5.5 /CMM (1.8-8.9); NEUTROPHILS % (AUTO) 53.3 % (43.0-81.0); PLATELET COUNT (AUTO) 192 /CMM (150-450); RED BLOOD CELL COUNT(AUTO) 4.15 MIL/uL (4.5-6.0); WHITE BLOOD COUNT (AUTO) 10.3 K/uL (4.3-11.0)
[2019-05-30 08:29] LABS: CALCIUM, SERUM 9.4 mg/dL (8.5-10.1); CREATININE 0.6 mg/dL (0.6-1.3); POTASSIUM 3.9 mmol/L (3.5-5.1)
[2019-05-30 08:30] LABS: MAGNESIUM 2.2 mg/dL (1.8-2.4); PHOSPHORUS 3.2 mg/dL (2.5-4.9)
[2019-05-30 08:32] LABS: CHOLESTEROL 117 mg/dL (<200); HDL CHOLESTEROL 29 mg/dL (40-60); LDL 66 mg/dL (0-99); TRIGLYCERIDES 180 mg/dL (30-150)
[2019-05-30] MEDS: ACIDOPHILUS/BULGARICUS 1 EACH TAB.CHEW GT SCH ×3 (09:00→17:00)
[2019-05-30] MEDS: DOCUSATE SODIUM LIQ 100 MG/10 ML UDC GT SCH (09:00)
[2019-05-30] MEDS: MULTIVITAMINS,THERAGRAN 1 UDTAB TABLET GT SCH (09:00)
[2019-05-30] MEDS: TRAMADOL HCL 50 MG TABLET GT SCH (09:00)
[2019-05-30] MEDS: ASCORBIC ACID 500 MG TABLET GT SCH ×2 (09:00→17:00)
[2019-05-30] MEDS: ZINC SULFATE 220 MG CAPSULE GT SCH (09:00)
[2019-05-30] MEDS: METOPROLOL TARTRATE 25 MG TABLET GT SCH ×2 (09:00→17:00)
[2019-05-30] MEDS: CHLORHEXIDINE GLUCONATE 15 ML UDC MM SCH ×2 (10:08→17:10)
[2019-05-30] MEDS: CLOTRIMAZOLE 1% 15 GM TUBE TP SCH ×2 (10:08→17:10)
[2019-05-30] MEDS: FAMOTIDINE/PF INJ 20 MG/2 ML VIAL IV SCH ×2 (10:08→20:44)
[2019-05-30] MEDS: NYSTATIN/TRIAMCIN CREAM 15 GM TUBE TP SCH ×2 (10:09→17:13)
[2019-05-30] MEDS: Z GUARD REMEDY 2 OZ OINT TP PRN (10:44)
[2019-05-30 12:00] VITALS: BP 107/63
[2019-05-30] MEDS: FAT EMULSION 20% 500 ML in PREMIX 1 EA IV SCH (14:17)
--- NOTE | 2019-05-30 15:10 | NUR ---
RN NOTE: RECEIVED A VERBAL ORDER FROM Marquis CORRAL NP FOR AM LABS FOR TOMORROW. ORDER, NOTED AND CARRIED OUT.
[2019-05-30 16:00] VITALS: BP 119/61
--- NOTE | 2019-05-30 19:30 | NUR ---
TELE/RN ENTRY NOTES PATIENT IN BED RESTING COMFORTABLY AT THIS TIME. NO S/S OF ACUTE DISTRESS NOTED. RESPIRATION EVEN AND UNLABORED. NO SOB NOTED. PATIENT NON VERBAL, OPEN EYES. NO S/S OF PAIN NOTED AT THIS TIME. TRACH INTACT, PATENT, CONNECTED TO VENT WITH PRESCRIBED SETTINGS, SATURATING @ 98%, ON TELE WITH SINUS RHYTHM. LIJ NOTED WITH NO S/S OF INFECTION, RUNNING TPN AND LIPIDS ORDERED. G-TUBE IN PLACE, CLAMPED AT THIS TIME. SAFETY MAINTAINED, BED AT THE LOWEST, POSITION, LOCKED, CALL LIGHT WITHIN REACH. HOB KEPT ELEVATED AT ALL THE TIME. WILL CONTINUE TO MONITOR PATIENT CONDITION PER PLAN OF CARE.
--- NOTE | 2019-05-30 19:34 | NUR ---
RN NOTE: BEDSIDE REPORT GIVEN TO PM SHIFT NURSE FOR CONTINUITY OF CARE. PATIENT REMAINED ON TPN @70ML/HR AND LIPIDS @20ML/HR. PATIENT REMAINED ON CONTACT ISOLATION FOR HIS ESBL ABDOMINAL WOUND (OLD GT SITE) SATURATING WELL ON CURRENT MECHANICAL VENTILATOR SETTING.
[2019-05-30 20:00] VITALS: BP 122/64
[2019-05-30] MEDS ORDERED: TPN BAG #30 IV PRN ×7 (20:00)
[2019-05-30] MEDS: INSULIN GLARGINE, 100 UNIT/ML CARTRIDGE SQ SCH (23:02)
[2019-05-31] VITALS (7 sets, daily range): BP systolic 107–164; BP diastolic 56–84
[2019-05-31] MEDS: hydrALAZINE HCL IV 20 MG VIAL IV PRN (00:49)
--- NOTE | 2019-05-31 01:27 | NUR ---
PATIENT WAS GIVEN HYDRALAZINE IV ORDERED PRN FOR BLOOD PRESSURE 164/84. RECHECKED BP AT THIS TIME NOTED 120/56, HR 76.
[2019-05-31] MEDS: MIDODRINE HCL (5MG) 5 MG TABLET GT SCH ×3 (04:00→21:00)
[2019-05-31] MEDS: BACLOFEN (10 MG) 10 MG TABLET GT SCH ×3 (04:00→21:01)
[2019-05-31] MEDS: clonazePAM 0.5 MG TABLET GT SCH ×3 (04:00→21:01)
[2019-05-31] MEDS: ALBUTEROL FS 2.5 MG/0.5 ML VIAL.NEB NEB SCH ×6 (04:14→23:53)
[2019-05-31] MEDS: BLOOD SUGAR DIAGNOSTIC 1 EACH STRIP IN SCH ×3 (05:02→17:40)
--- NOTE | 2019-05-31 05:03 | NUR ---
ENDORSE TO THE NURSE FOR KEVIN
[2019-05-31 07:03] LABS: BASOPHILS # (AUTO) 0.1 /CMM (0.0-0.2); BASOPHILS % (AUTO) 1.3 % (0.0-2.0); EOSINOPHILS % (AUTO) 3.4 % (0.0-6.0); HEMATOCRIT 37 % (39-51); HEMOGLOBIN 12.1 g/dL (13.5-17.5); LYMPHOCYTES # (AUTO) 2.3 /CMM (0.8-4.8); LYMPHOCYTES % (AUTO) 25.7 % (20.0-44.0); MEAN CORPUSCULAR HGB CONC 33 g/dl (31.0-36.0); MEAN CORPUSCULAR VOLUME 90 fL (80-96); MONOCYTES # (AUTO) 0.8 /CMM (0.1-1.30); MONOCYTES % (AUTO) 8.8 % (2.0-12.0); NEUTROPHILS # (AUTO) 5.5 /CMM (1.8-8.9); NEUTROPHILS % (AUTO) 60.8 % (43.0-81.0); PLATELET COUNT (AUTO) 194 /CMM (150-450); RED BLOOD CELL COUNT(AUTO) 4.05 MIL/uL (4.5-6.0)
[2019-05-31 07:27] LABS: ALBUMIN 3.4 g/dL (3.4-5.0); BILIRUBIN,TOTAL 0.5 mg/dL (0.2-1.0); CALCIUM, SERUM 9.2 mg/dL (8.5-10.1); CREATININE 0.7 mg/dL (0.6-1.3); MAGNESIUM 1.9 mg/dL (1.8-2.4); PHOSPHORUS 2.7 mg/dL (2.5-4.9); POTASSIUM 3.6 mmol/L (3.5-5.1); TOTAL PROTEIN, SERUM 8.1 g/dL (6.4-8.2)
--- NOTE | 2019-05-31 07:29 | NUR ---
INK GRINDER OPENING NOTES RECEIVED BEDSIDE REPORT .PATIENT A/O X0 OBTUNDED ON MECH VENT TOLERATING SETTINGS WELL NO SIGNS OR SYMPTOMS OF RESPIRATORY DISTRESS OR ACUTE PAIN NOTED.SCHEDULED FOR 0900 SURGERY TO HAVE OLD PEG SITE CLOSED. SINUS ON THE MONITOR. INCONTINENT B&B LEFT IJ RUNNING TPN TOLERATING WELL. SAFETY ASPIRATION AND ISOLATION PRECAUTIONS IN PLACE BED IN LOW POSITION CALL LIGHT WITHIN REACH WILL CONTINUE TO MONITOR ACCORDINGLY
[2019-05-31] MEDS: SUCRALFATE 1 G/10 ML UDC GT SCH ×4 (07:30→21:01)
[2019-05-31] MEDS: ACIDOPHILUS/BULGARICUS 1 EACH TAB.CHEW GT SCH ×3 (08:01→16:43)
[2019-05-31] MEDS: DOCUSATE SODIUM LIQ 100 MG/10 ML UDC GT SCH (08:01)
[2019-05-31] MEDS: ASCORBIC ACID 500 MG TABLET GT SCH ×2 (08:03→16:44)
[2019-05-31] MEDS: MULTIVITAMINS,THERAGRAN 1 UDTAB TABLET GT SCH (08:03)
[2019-05-31] MEDS: TRAMADOL HCL 50 MG TABLET GT SCH (08:04)
[2019-05-31] MEDS: ZINC SULFATE 220 MG CAPSULE GT SCH (08:04)
[2019-05-31] MEDS: FAMOTIDINE/PF INJ 20 MG/2 ML VIAL IV SCH ×2 (08:04→21:01)
[2019-05-31] MEDS: CHLORHEXIDINE GLUCONATE 15 ML UDC MM SCH ×2 (08:04→16:44)
[2019-05-31] MEDS: CLOTRIMAZOLE 1% 15 GM TUBE TP SCH ×2 (08:17→16:45)
[2019-05-31] MEDS: METOPROLOL TARTRATE 25 MG TABLET GT SCH ×2 (08:17→16:44)
[2019-05-31] MEDS: METOCLOPRAMIDE HCL 10 MG/2 ML VIAL IV SCH ×3 (08:17→17:41)
[2019-05-31] MEDS: NYSTATIN/TRIAMCIN CREAM 15 GM TUBE TP SCH ×2 (08:18→16:45)
[2019-05-31] MEDS ORDERED: ROCURONIUM BROMIDE 50 MG/5 ML ONE (09:24)
--- NOTE | 2019-05-31 09:26 | NUR ---
PATIENT LEFT FOR SURGERY VIA BED WITH RT AND SURGICAL STAFF
[2019-05-31] MEDS ORDERED: LIDOCAINE HCL/PF 1% 30 ML SDV ONE (10:01)
[2019-05-31] MEDS ORDERED: BUPIVACAINE 0.5 % PF 150 MG/30 ML VIAL ONE (10:02)
[2019-05-31] MEDS ORDERED: BUPIVACAINE MPF 0.5% W/EPI INJ 30 ML VIAL ONE (10:02)
[2019-05-31] MEDS ORDERED: GLUCERNA 1.2 1,000 ML BOTTLE NG PRN (11:00)
--- NOTE | 2019-05-31 11:15 | NUR ---
PATIENT RETURNED FROM SURGERY. NO DISTRESS NOTED VITAL SIGNS STABLE. SPOKE WITH JANE SR WILL START PATIENT ON GLUCERNA 1.2 @ 10 ML/HR AND INCREASE Q2HRS BY 10ML UNTIL GOAL OF 70 ML/HR MET. RX CALLED AND WILL CONT LAST BAG OF TPN WITH NO NEW ORDERS AT THIS TIME
[2019-05-31] MEDS ORDERED: TPN BAG #31 IV PRN ×9 (11:30)
[2019-05-31] MEDS ORDERED: TPN BAG #32 IV PRN ×7 (11:30)
--- NOTE | 2019-05-31 11:45 | NUR ---
COURT ORDERED CONSERVATOR AT BEDSIDE .
[2019-05-31] MEDS: INSULIN REGULAR, HUMAN 100 UNIT/ML 3 ML VIAL SQ PRN ×2 (12:39→17:41)
--- NOTE | 2019-05-31 13:00 | NUR ---
STARTED TUBE FEEDING ORDERED 10 ML/HR WILL MONITOR FOR HICCUP AND RESIDUAL
--- NOTE | 2019-05-31 15:00 | NUR ---
GTF INCREASED TO 20 ML/HR TPN DECREASED TO 35 ML/HR
--- NOTE | 2019-05-31 18:17 | NUR ---
STAGE DIRECTOR NOTES PATIENT STABLE THROUGHPUT SHIFT.OBTUNDED NO SIGNS OR SYMPTOMS OF RESPIRATORY DISTRESS ON MECH VENT TOLERATING SETTINGS. NO SIGNS OF FACIAL GRIMACING FOR PAIN.SINUS ON THE MONITOR INCONTINENT B&B. IJ TRIPLE LUMEN PATENT RUNNING TPN @ 35 ML/HR WEENING OFF. GTF RUNNING @ 30 ML/HR TOLERATING WELL NO N/V/D OR RESIDUAL NOTED. NO DRAINING AT SURGERY SITE. SURGERY SITE PACKED AND SECURED. NO HYPER/HYPOGLYCEMIA . PLAN TO WEEN OFF TPN AND CONT GTF TOLERATED TO BE DC IN THE MORNING. SAFETY AND ASPIRATION PRECAUTIONS IN PLACE ALL NEEDS MET.
--- NOTE | 2019-05-31 19:06 | NUR ---
REPORT ENDORSED TO NOC
--- NOTE | 2019-05-31 19:43 | NUR ---
RN INITIAL TELE NOTES PATIENT OBTUNDED NO SIGNS OR SYMPTOMS OF RESPIRATORY DISTRESS ON MECH VENT TOLERATING SETTINGS. NO SIGNS OF FACIAL GRIMACING FOR PAIN.SINUS ON THE MONITOR INCONTINENT B&B. IJ TRIPLE LUMEN PATENT RUNNING TPN @ 35 ML/HR WEENING OFF. GTF RUNNING @ 30 ML/HR, TOLERATING WELL NO N/V/D OR RESIDUAL NOTED, WILL INCREASE TO 50 GOAL AT 2200 WHEN TOLERATED. NO DRAINING AT SURGERY SITE. SURGERY SITE PACKED AND SECURED. NO HYPER/HYPOGLYCEMIA . PLAN TO WEEN OFF TPN AND CONT GTF TOLERATED TO BE DC IN THE MORNING. SAFETY AND ASPIRATION PRECAUTIONS IN PLACE ALL NEEDS MET.
[2019-05-31] MEDS: INSULIN GLARGINE, 100 UNIT/ML CARTRIDGE SQ SCH (21:06)
[2019-06-01] VITALS (21 sets, daily range): BP systolic 63–123; BP diastolic 20–88
[2019-06-01] MEDS: BLOOD SUGAR DIAGNOSTIC 1 EACH STRIP IN SCH ×4 (00:41→18:08)
[2019-06-01] MEDS: METOCLOPRAMIDE HCL 10 MG/2 ML VIAL IV SCH ×4 (00:46→19:05)
[2019-06-01] MEDS: LORAZEPAM INJ 2 MG/ML VIAL IV PRN ×2 (01:51→08:08)
[2019-06-01] MEDS: ALBUTEROL FS 2.5 MG/0.5 ML VIAL.NEB NEB SCH ×6 (03:40→23:00)
[2019-06-01] MEDS: BACLOFEN (10 MG) 10 MG TABLET GT SCH ×3 (05:11→21:00)
[2019-06-01] MEDS: clonazePAM 0.5 MG TABLET GT SCH ×3 (05:11→21:00)
[2019-06-01] MEDS: MIDODRINE HCL (5MG) 5 MG TABLET GT SCH ×3 (05:12→21:00)
--- NOTE | 2019-06-01 06:12 | NUR ---
RN END OF SHIFT NOTE ENDORSED PT TO AM SHIFT, CONT' ON VENT, LAST BAG OF TPN INFUSED AND DC PER MD PLAN, BS WNR 118-109 THROUGH SHIFT, GTF INCREASED BY 10 ML Q2H TO REACH GOAL OF 70 ML/HR, WELL TOLERATED WITH GT FLUSH, RESIDUAL Q2H CHECK 5CC, HOB ELEVATED QS, VS STABLE, WILL ENDORSE TO AM RN TO CONT' TO MONITOR.
[2019-06-01 07:08] LABS: CALCIUM, SERUM 9.2 mg/dL (8.5-10.1); CREATININE 1.3 mg/dL (0.6-1.3); MAGNESIUM 1.8 mg/dL (1.8-2.4); PHOSPHORUS 2.3 mg/dL (2.5-4.9); POTASSIUM 3.4 mmol/L (3.5-5.1)
[2019-06-01 07:23] LABS: BASOPHILS # (AUTO) 0.1 /CMM (0.0-0.2); BASOPHILS % (AUTO) 0.3 % (0.0-2.0); EOSINOPHILS % (AUTO) 0.1 % (0.0-6.0); HEMATOCRIT 36 % (39-51); HEMOGLOBIN 11.5 g/dL (13.5-17.5); LYMPHOCYTES # (AUTO) 0.5 /CMM (0.8-4.8); LYMPHOCYTES % (AUTO) 2.2 % (20.0-44.0); MEAN CORPUSCULAR HGB CONC 32 g/dl (31.0-36.0); MEAN CORPUSCULAR VOLUME 91 fL (80-96); MONOCYTES # (AUTO) 0.4 /CMM (0.1-1.30); MONOCYTES % (AUTO) 2.1 % (2.0-12.0); NEUTROPHILS # (AUTO) 19.9 /CMM (1.8-8.9); NEUTROPHILS % (AUTO) 95.3 % (43.0-81.0); PLATELET COUNT (AUTO) 163 /CMM (150-450); RED BLOOD CELL COUNT(AUTO) 3.91 MIL/uL (4.5-6.0); WHITE BLOOD COUNT (AUTO) 20.9 K/uL (4.3-11.0)
--- NOTE | 2019-06-01 07:30 | NUR ---
RN INITIAL NOTES PATIENT IN BED, OBTUNDED. ON VENT. RR HIGH AT 30s. AND HR HIGH AT 140s. PER NOC SHIFT, PATIENT DOES THIS AND ONCE GIVEN ATIVAN, HE CALMS DOWN. PATIENT WAS GIVEN ATIVAN 0.5MG PRN Q6H. SAW THAT THE PATIENT IS SOILED WELL. WILL CLEAN PATIENT DAVIS. ON GTF AT 70ML/HR, PER NOC SHIFT THIS IS THE GOAL. CHECKED RESIDUAL, HAD 10ML ONLY. PATIENT REPOSITIONED FOR COMFORT. HAS A LEFT IJ, TKO. LAST BAG OF TPN WAS STOPPED LAST NIGHT. AT 0600, BS AT 109. DC PLANNING BACK TO SNF PER NOC SHIFT. WILL CONTINUE TO MONITOR CLOSELY
--- NOTE | 2019-06-01 08:10 | NUR ---
RN NOTES COLACE HAS BEEN HELD DUE TO PATIENT HAD 1X DIARRHEA THIS MORNING. LOPRESSOR ALSO HELD DUE TO LOW BP OF 94/49
[2019-06-01] MEDS: SUCRALFATE 1 G/10 ML UDC GT SCH ×4 (08:29→22:00)
[2019-06-01] MEDS: ZINC SULFATE 220 MG CAPSULE GT SCH (08:30)
[2019-06-01] MEDS: ACIDOPHILUS/BULGARICUS 1 EACH TAB.CHEW GT SCH ×3 (08:30→17:00)
[2019-06-01] MEDS: CHLORHEXIDINE GLUCONATE 15 ML UDC MM SCH ×2 (08:30→18:04)
[2019-06-01] MEDS: ASCORBIC ACID 500 MG TABLET GT SCH ×2 (08:30→17:00)
[2019-06-01] MEDS: CLOTRIMAZOLE 1% 15 GM TUBE TP SCH ×2 (08:31→18:05)
[2019-06-01] MEDS: TRAMADOL HCL 50 MG TABLET GT SCH (08:31)
[2019-06-01] MEDS: MULTIVITAMINS,THERAGRAN 1 UDTAB TABLET GT SCH (08:31)
[2019-06-01] MEDS: FAMOTIDINE/PF INJ 20 MG/2 ML VIAL IV SCH ×2 (08:31→21:10)
[2019-06-01] MEDS: DOCUSATE SODIUM LIQ 100 MG/10 ML UDC GT SCH (08:32)
[2019-06-01] MEDS: METOPROLOL TARTRATE 25 MG TABLET GT SCH ×2 (08:32→17:00)
[2019-06-01] MEDS: NYSTATIN/TRIAMCIN CREAM 15 GM TUBE TP SCH ×2 (08:36→18:05)
--- NOTE | 2019-06-01 09:30 | NUR ---
RN NOTES PATIENT HAS BEEN CLEANED AND REPOSITIONED. PATIENT STILL TACHY, HR 135 AND RR 36. PAGED CHENG LARA. WAS GIVEN AN ORDER FOR ATIVAN INJ 0.5MG ONCE AND WAS TOLD THAT THE GTF GOAL IS ONLY 50ML/HR, AND NOT 70. WAITING FOR PHARMACY TO VERIFY ORDER AND WILL ADMINISTER MEDICATION DAVIS. GTF HAS ALREADY BEEN CHANGED TO 50ML/HR
[2019-06-01] MEDS ORDERED: LORAZEPAM INJ 2 MG/ML VIAL IV ONE (09:35)
--- NOTE | 2019-06-01 10:35 | NUR ---
RN NOTES CHANGED THE PATIENT'S WOUND DRESSING FROM THE OLD GT SITE. PATIENT'S HR KEEPS GOING UP, HR 140 RR 40. CHECKED THE TEMP AND FEVER AT 102F. WBC HAS SPIKED TO 20.9 FROM 9.0 YESTERDAY. MADE AWARE. CALLED RT TO DO SOME SUCTIONING. NOTHING WAS SUCTIONED PER RT. PATIENT MIGHT NOT GET DC TODAY. WILL LET CM AWARE. PER JANE, SHE WILL SEE THE PATIENT TO ASSESS
[2019-06-01] MEDS: ACETAMINOPHEN 650 MG/SUPP.RECT RC PRN (10:41)
[2019-06-01] MEDS ORDERED: MEROPENEM 1 G in IV NS 0.9% 100 ML IV SCH (11:00)
--- NOTE | 2019-06-01 11:08 | NUR ---
RN NOTES ADMINISTERED TYLENOL SUPP. CHENG SMITH ORDERED BLOOD CX, CXR AND RESP CX. ALSO ORDERED MERREM TO BE GIVEN AFTER THE BLOOD DRAW. WAITING FOR PHARMACY TO VERIFY THE MEDICATION
[2019-06-01] MEDS: MORPHINE SULFATE INJ 2 MG/ML DISP.SYRIN IV PRN (11:35)
[2019-06-01] MEDS ORDERED: FEE PK DOSING 1 MIN EA MC ONE ×2 (11:53→18:56)
[2019-06-01] MEDS ORDERED: POTASSIUM CHLORIDE 20 MEQ POWDER PACKET GT SCH (12:00)
[2019-06-01] MEDS ORDERED: VANCOMYCIN 0.75 GM in IV D5W 250 ML IV SCH (12:00)
--- NOTE | 2019-06-01 12:56 | NUR ---
RN NOTES DR BELCHER AT BEDSIDE, ORDERED TO TRANSFER PATIENT TO ICU, STAT ABG AND BLOOD CX. LACTIC ACID CRITICALLY HIGH 9.4, MD AWARE. ICU ROOM #[id number], WAITING TO GIVE REPORT TO ICU NURSE
[2019-06-01] MEDS: MEROPENEM 1 G in IV NS 0.9% 100 ML IV SCH ×2 (13:15→21:58)
[2019-06-01] MEDS ORDERED: NEUTRA PHOS 1 POWD.PACKET NG ONE (13:30)
--- NOTE | 2019-06-01 13:50 | NUR ---
UNIT MANAGER NOTES TRANSFERRED PATIENT TO ICU PER ACLS PROTOCOL. PATIENT ON VENT, RT AT BEDSIDE. GAVE REPORT TO ICU NURSE, MARCELINO.
--- NOTE | 2019-06-01 14:00 | NUR ---
TRANSFER PT BROUGHT UP FROM [facility] FOR ABNORMAL LABS: LACTIC ACID 9.4, WBC 20.9, HR 140, RR 30. PT ON VENT PEEP DC'D PER MD BELCHER AND 1 LITER NS BOLUS GIVEN PT HAS TRIPLE LUMEN LEFT IJ DISTAL PORT UNABLE TO FLUSH RUNNING VANCO AND MERREM PT HAS GASPING RESPIRATIONS ON VENT SKIN DIAPHORETIC AND MODELED. MD BELCHER ORDERED 0 PEEP AND GIVEN 1 LITER NORMAL SALINE, AT 1426 PT CODED TILL 1431 PT ROSC PT CURRENT RECEIVING SECOND BOLUS NS AND MAINTENANCE OF D5 NS AT 150ML/HR. JOE ORDERED PT ST AT 122 WILL CONTINUE TO MONITOR.
[2019-06-01] MEDS ORDERED: IV D5/ 0.9% NACL 1,000 ML IV PRN (14:30)
[2019-06-01 14:31] LABS: ABG BASE EXCESS -15.7 mmol/L; ABG OXYGEN SATURATION 70.9 % (92.0-98.5); ABG PCO2 72.8 mmHg (35.0-45.0); ABG PO2 55.3 mmHg (75.0-100.0); AaDO2 146.2 mmHg; COHb 0.7 % (0.5-1.5); MetHb 0.7 % (0.0-1.5); O2Hb 69.9 % (94.0-97.0); SITE, ABG Right Radial; VENT MODE, BG AC 14 550 40% +5
[2019-06-01] MEDS ORDERED: SODIUM BICARBONATE SYR 50 MEQ/50 ML DISP.SYRIN IV ONE (14:53)
[2019-06-01] MEDS ORDERED: EPINEPHRINE (1:10,000) SYRINGE 1 MG/10 ML DISP.SYRIN IVP ONE (14:53)
[2019-06-01] MEDS ORDERED: ATROPINE SULFATE 1 MG/10 ML DISP.SYRIN IV ONE (14:53)
[2019-06-01 15:14] LABS: HEMATOCRIT 36 % (39-51); HEMOGLOBIN 11.2 g/dL (13.5-17.5); MEAN CORPUSCULAR HGB CONC 31 g/dl (31.0-36.0); MEAN CORPUSCULAR VOLUME 96 fL (80-96); PLATELET COUNT (AUTO) 92 /CMM (150-450); RED BLOOD CELL COUNT(AUTO) 3.76 MIL/uL (4.5-6.0); WHITE BLOOD COUNT (AUTO) 23.4 K/uL (4.3-11.0)
[2019-06-01] MEDS ORDERED: IV NS 0.9% 1,000 ML IV STA (15:24)
[2019-06-01] MEDS ORDERED: MORPHINE SULFATE INJ 2 MG/ML DISP.SYRIN IV PRN (15:30)
[2019-06-01] MEDS ORDERED: NOREPINEPHRINE 8 MG in IV D5W 500 ML IV PRN (15:30)
[2019-06-01 16:10] LABS: BILIRUBIN,DIRECT 1.6 mg/dL (0.0-0.2)
[2019-06-01 16:30] LABS: ABG BASE EXCESS -12.7 mmol/L; ABG PCO2 29.5 mmHg (35.0-45.0); ABG PH 7.263 (7.350-7.450); ABG PO2 426.6 mmHg (75.0-100.0); AaDO2 256.9 mmHg; COHb 0.3 % (0.5-1.5); MetHb 0.6 % (0.0-1.5); O2Hb 98.1 % (94.0-97.0); SITE, ABG Left Brachial; VENT MODE, BG AC 22 600 100% +0
[2019-06-01 16:35] LABS: PHOSPHORUS 3.9 mg/dL (2.5-4.9)
[2019-06-01] MEDS: INSULIN REGULAR, HUMAN 100 UNIT/ML 3 ML VIAL SQ PRN (18:09)
[2019-06-01 18:18] LABS: ALBUMIN 2.6 g/dL (3.4-5.0); CREATININE 2.4 mg/dL (0.6-1.3); POTASSIUM 4.3 mmol/L (3.5-5.1); TOTAL PROTEIN, SERUM 6.5 g/dL (6.4-8.2)
--- NOTE | 2019-06-01 18:25 | NUR ---
CORPORATE PLANNING MANAGER NOTE RECEIVED VERBAL ORDER FROM DR. CHAUDHARY FOR DOPAMINE DRIP
[2019-06-01] MEDS ORDERED: MICAFUNGIN SODIUM 100 MG in IV NS 0.9% 100 ML IV SCH ×2 (18:30→20:00)
[2019-06-01] MEDS ORDERED: DOPamine 400 MG/D5W 250 ML RTU PIGGYBACK IV ONE (19:00)
--- NOTE | 2019-06-01 19:45 | NUR ---
RACECAR DRIVER NOTE RECEIVED PT AFTER POST ROSC. ER DOCTOR AT BEDSIDE. FAMILY AT BEDSIDE. PT ON MECH VENT AND PLACED ON 100% FIO2. TELE- SINUS TACH 130'S. NOTED PT WITH OPEN EYES, NO TRACKING, NON VERBAL AND OBTUNDED. SCRUBBER SYSTEM ATTENDANT DR. COLLINS NOTIFIED. PT ON DOPAMINE DRIP INFUSING THROUGH THE LEFT IJ TLC. TETE MIDLINE NOT FLUSHING. AWAITING PICC LINE NURSE TO CHECK MIDLINE AND POSSIBLY INSERT NEW LINE. ISOLATION PRECAUTIONS OBSERVED. WILL CONTINUE TO MONITOR CLOSELY.
--- NOTE | 2019-06-01 19:57 | NUR ---
CLOSING PT CODED X 3 NOW ON DOPAMINE CALLED RN BLANKET INSPECTOR FOR MID-LINE INOPERABLE PT REMAINS WITH LEFT IJ HAS A DIAZ DRAINING TO GRAVITY PT OBTUNDED AT 1400 FAMILY AWARE OF CODING PT ACTIVITY FULL CODE REMAINS IN EFFECT. HOB ELEVATED BED IN LOW POSITION WILL GIVE RN REPORT FOR CONTINUTIY OF CARE
[2019-06-01] MEDS ORDERED: TOBRAMYCIN 100 MG in IV D5W 50 ML IV SCH (20:00)
[2019-06-01] MEDS ORDERED: DOPamine 400 MG/D5W 250 ML RTU PIGGYBACK IV PRN (20:30)
[2019-06-01] MEDS ORDERED: PHENYLEPHRINE 80 MG in IV D5W 250 ML IV PRN (20:30)
[2019-06-01 20:59] LABS: BAND % (MANUAL) 9 % (0.0-5.0); EOSINOPHILS % (MANUAL) 1 % (0-4); LYMPHOCYTES % (MANUAL) 5 % (16-48); MONOCYTES % (MANUAL) 8 % (0-11.0); NEUTROPHILS % (MANUAL) 75 (42-76); REACTIVE LYMPHOCYTES 2 % (0-0)
[2019-06-01] MEDS ORDERED: LORAZEPAM INJ 2 MG/ML VIAL IV PRN (21:00)
[2019-06-01] MEDS ORDERED: DOPamine 400 MG in IV D5W 250 ML IV PRN (21:00)
--- NOTE | 2019-06-01 21:00 | NUR ---
WELLNESS PROGRAM ADMINISTRATOR NOTE NOTIFIED DR. COLLINS PT BP REMAINS LOW WITH DOPAMINE MAXED OUT. WITH ORDERS TO START PHENYLEPHRINE TO KEEP SBP >90. ORDERS NOTED AND CARRIED OUT.
[2019-06-01] MEDS: INSULIN GLARGINE, 100 UNIT/ML CARTRIDGE SQ SCH (22:00)
[2019-06-02] VITALS: BP 99/48
[2019-06-02 00:15] VITALS: BP 101/43
[2019-06-02 00:30] VITALS: BP 99/45
[2019-06-02] MEDS ORDERED: MORPHINE SULFATE INJ 2 MG/ML DISP.SYRIN IV PRN (00:30)
[2019-06-02] MEDS ORDERED: LORAZEPAM INJ 2 MG/ML VIAL IV PRN (00:30)
[2019-06-02 00:45] VITALS: BP 68/32
[2019-06-02 00:53] VITALS: BP 74/27
[2019-06-02 01:00] VITALS: BP 59/23
[2019-06-02] MEDS ORDERED: SODIUM BICARBONATE SYR 50 MEQ/50 ML DISP.SYRIN IV ONE ×2 (01:16)
[2019-06-02] MEDS ORDERED: ATROPINE SULFATE 1 MG/10 ML DISP.SYRIN IV ONE (01:16)
[2019-06-02] MEDS ORDERED: DEXTROSE 50%-WATER 50 ML DISP.SYRIN IV ONE (01:16)
[2019-06-02] MEDS ORDERED: EPINEPHRINE (1:10,000) SYRINGE 1 MG/10 ML DISP.SYRIN IVP ONE ×2 (01:16)
[2019-06-02] MEDS ORDERED: MORPHINE SULFATE INJ 4 MG/ML DISP.SYRIN IV PRN (01:30)
--- NOTE | 2019-06-02 02:00 | NUR ---
NETEZZA ARCHITECT Pt was on comfort measures only. All meds, treatments, and labs were d/c. Pt was given Morphine IVP & Ativan IVP for comfort. Vent. was taken off. Pt went to severe anju, hypotension & finally to asystole. No heart beats, no pulses on major arteries. No breath sounds. Pupils are fixed & dilated. Pt is not responsive to any stimuli. No gag or corneal reflexes. EKG- straight line. Pt was pronounced at 12.07. by charge auditor Ed Gadiel. Body care done & body was sent to [facility] – [place].
== END 2019-06-02 01:17 | disposition expired | DRG 227 ==
LOC: ER 23:55 → TELE1 05-04 02:19 → ICU 06-01 12:38
PROVIDERS: ADMIT Student in an Organized Health Care Education/Training Program; ATTEND Registered Nurse
PROC: 5A1955Z Respiratory Ventilation, Greater than 96 Consecutive Hours (ICD-10-PCS; 2019-05-04)
PROC: 05HB33Z Insertion of Infusion Device into Right Basilic Vein, Percutaneous Approach (ICD-10-PCS; 2019-05-05)
PROC: 0DH63UZ Insertion of Feeding Device into Stomach, Percutaneous Approach (ICD-10-PCS; principal; 2019-05-07)
PROC: 0DP68UZ Removal of Feeding Device from Stomach, Via Natural or Artificial Opening Endoscopic (ICD-10-PCS; 2019-05-09)
PROC: 0DH63UZ Insertion of Feeding Device into Stomach, Percutaneous Approach (ICD-10-PCS; 2019-05-09)
PROC: 0WBF0ZZ Excision of Abdominal Wall, Open Approach (ICD-10-PCS; 2019-05-10)
PROC: 0WBF0ZZ Excision of Abdominal Wall, Open Approach (ICD-10-PCS; 2019-05-31)
PROC: 0WQF0ZZ Repair Abdominal Wall, Open Approach (ICD-10-PCS; 2019-05-31)
PROC: 5A2204Z Restoration of Cardiac Rhythm, Single (ICD-10-PCS; 2019-06-01)
DX: K94.21 Gastrostomy hemorrhage (principal); J96.21 Acute and chronic respiratory failure with hypoxia; R65.21 Severe sepsis with septic shock; A41.51 Sepsis due to Escherichia coli [E. coli]; J18.9 Pneumonia, unspecified organism; Z99.11 Dependence on respirator [ventilator] status; J90 Pleural effusion, not elsewhere classified; G93.40 Encephalopathy, unspecified; D68.69 Other thrombophilia; Z66 Do not resuscitate; K31.6 Fistula of stomach and duodenum; N17.9 Acute kidney failure, unspecified; E87.2 Acidosis; R53.2 Functional quadriplegia; K92.2 Gastrointestinal hemorrhage, unspecified; E11.9 Type 2 diabetes mellitus without complications; F41.9 Anxiety disorder, unspecified; I25.10 Atherosclerotic heart disease of native coronary artery without angina pectoris; L03.311 Cellulitis of abdominal wall; E44.1 Mild protein-calorie malnutrition; K94.22 Gastrostomy infection; B96.20 Unspecified Escherichia coli [E. coli] as the cause of diseases classified elsewhere; Z79.4 Long term (current) use of insulin; Z79.899 Other long term (current) drug therapy; Z79.01 Long term (current) use of anticoagulants; Y83.3 Surgical operation with formation of external stoma as the cause of abnormal reaction of the patient, or of later complication, without mention of misadventure at the time of the procedure; Y92.129 Unspecified place in nursing home as the place of occurrence of the external cause; Z79.82 Long term (current) use of aspirin; E87.6 Hypokalemia; I11.0 Hypertensive heart disease with heart failure; I50.9 Heart failure, unspecified; I70.0 Atherosclerosis of aorta; D64.9 Anemia, unspecified; B37.49 Other urogenital candidiasis; J98.11 Atelectasis; R13.10 Dysphagia, unspecified; Z96.659 Presence of unspecified artificial knee joint; B95.2 Enterococcus as the cause of diseases classified elsewhere; B96.89 Other specified bacterial agents as the cause of diseases classified elsewhere; K43.9 Ventral hernia without obstruction or gangrene; E83.39 Other disorders of phosphorus metabolism; Z16.12 Extended spectrum beta lactamase (ESBL) resistance; Y95 Nosocomial condition
CPT/HCPCS: 31720; 36415; 36569; 36600; 43246; 71045-TC; 80048-TC; 80053-TC; 80061-TC; 80076-TC; 81000-TC; 82040-TC; 82248-TC; 82272-TC; 82728-TC; 82803-TC; 82962-TC; 83540-TC; 83605-TC; 83735-TC; 84100-TC; 84443-TC; 84478-TC; 85025-TC; 85027-TC; 85610-TC; 85730-TC; 86850-TC; 87040-TC; 87070-TC; 87081-TC; 87086-TC; 87186-TC; 88305-TC; 94002-TC; 94003-TC; 94760-TC; 94762-TC; 94799-TC; 99082-TC; A4216; A4349; A4623; A6253; A6403; A7526; A9563; C1751; C9113; G0378; J0171; J0360; J0456; J0461; J0690; J0696; J1265; J1450; J1644; J1815; J2060; J2185; J2248; J2270; J2370; J2704; J2765; J3260; J3370; J3475; J3480; J3490; J7030; J7040; J7042; J7050; J7060; J8597